=== PATIENT | male | born 1965 | race Caucasian/White ===

== ENCOUNTER 2023-02-01 02:46 | Emergency (ER) | payer MEDICAID, SELFPAY ==
[2023-02-01 02:48] VITALS: BP 144/98; PULSE 81; RESP 16; TEMP 35.8; O2SAT 100; BMI 22.1
--- NOTE | 2023-02-01 02:59 | RAD_ITS ---
INDICATION: injury EXAMINATION/TECHNIQUE: X-RAY - LEFT XR Hand Min 3 Views COMPARISON: None. FINDINGS: SOFT TISSUES: Unremarkable. BONES/JOINTS: No acute fracture or dislocation. Chronic/healed fracture of the fifth metacarpal. Mild degenerative changes. No erosive changes. RAD/Hand Min 3 Views IMPRESSION: No acute fracture or dislocation. Electronically Signed: Aric Randall DO at 3:23 EDT ,
--- NOTE | 2023-02-01 03:01 | RAD_ITS ---
INDICATION: injury EXAMINATION/TECHNIQUE: X-RAY - RIGHT XR Wrist Min 3 Views COMPARISON: None. FINDINGS: SOFT TISSUES: Soft tissue swelling of the wrist. BONES/JOINTS: Comminuted minimally displaced fracture of the distal radius extending to the articular surface of the radiocarpal joint. No dislocation. No significant degenerative changes. No erosive changes. RAD/Wrist min 3 Views IMPRESSION: Comminuted intra-articular fracture of the distal radius. Electronically Signed: Aric Randall DO at 3:21 EDT ,
[2023-02-01] MEDS: oxyCODONE 5 MG Tablet PO (03:19)
--- NOTE | 2023-02-01 03:55 | EX.ED.UPPERE ---
HPI History of Present Illness Chief Complaint: Upper Extremity Injury Informant: patient Narrative Narrative: [id number] male presents [facility] [employer]. No head injuries. Right wrist pain left hand pain. History of nonsurgical fracture as a child of the right wrist. No anticoagulants. No paresthesias. PFSH PFSH Home Medications carvedilol 3.125 mg tablet 3.125 mg PO BID 02/01/23 [History Last Taken Unknown] lisinopril 5 mg tablet 5 mg PO DAILY 02/01/23 [History Last Taken Unknown] oxycodone-acetaminophen 5 mg-325 mg tablet (Percocet) 1 tab PO Q6H pain 3 days #12 tabs 02/01/23 [Rx Last Taken Unknown] Allergy/AdvReac Type Severity Reaction Status Date / Time No Known Allergies Allergy Verified 02/01/23 02:47 Social History Smoking Status: Current every day smoker tobacco type: cigarettes ROS ROS ED Constitutional Constitutional ED: Denies chills, fever(s) or sweats Eyes Eyes: Denies change in vision ENT ENT ED: Denies dysphagia or sore throat Cardiovascular Cardiovascular: Denies chest pain, leg edema, palpitations or racing heartbeat Respiratory/Chest Respiratory/Chest: Denies cough, dyspnea or dyspnea on exertion Gastrointestinal Gastrointestinal: Denies abdominal pain, diarrhea, nausea or vomiting Genitourinary Genitourinary ED: Denies dysuria, hematuria or urinary frequency Musculoskeletal Musculoskeletal: Reports extremity pain; Denies back pain or neck pain Integumentary Denies rash or wounds Neurologic Neurologic: Denies headache(s), paresthesias or weakness EXAM Physical Exam Const Vital Signs: 02/01/23 02:48 Temperature 96.4 F L Temperature Source Temporal Pulse Rate 81 Respiratory Rate 16 Blood Pressure 144/98 H Blood Pressure Mean 113 Pulse Ox 100 Oxygen Delivery Method Room Air Positive well nourished and well developed Constitutional Narrative: GCS 15 General Appearance ED: well developed and NAD HEENT Reports moist mucous membranes normocephalic and atraumatic Eyes PERRL, EOMs intact bilaterally and conjunctivae normal General Eye ED: Yes normal appearance of both eyes Neck no lymphadenopathy and supple General: Negative for tenderness Chest Wall Chest: Negative for tenderness Resp normal respiratory effort and normal air movement Effort and Inspection: symmetric chest movement; Negative for respiratory distress Cardio regular rate, regular rhythm and no murmurs Peripheral Pulses: pulses 2+ throughout GI normal to inspection, nondistended, normoactive bowel sounds and non-tender Palpation: Negative for guarding or rebound tenderness present Back/Spine no CVA tenderness and no thoracic nor lumbar tenderness Extremity General Extremety ED: Yes tenderness; Negative for edema General Extremity: Negative for edema Neuro oriented x3 and no sensory deficits noted Sensorium / Orientation: awake and alert Skin no rashes or lesions noted and no wounds MDM MDM MDM Narrative Medical decision making narrative: Interventions / MDM: Differential diagnosis: Wrist fracture, finger fracture, wrist contusion, cerumen impaction Diagnosis considered but do not suspect: N/A My EKG interpretation: N/A Imaging independently reviewed and interpreted by myself: Right wrist 3 views: Impaction comminuted fracture distal radius intra-articular involvement. Left hand: Ring finger notes concerns for avulsion fracture base of the second phalanx. External documents reviewed: N/A Test considered but not ordered:N/A ED course: Mechanical fall no head injuries. X-rays ordered bedside noting confirmed fractures right wrist left ring finger. This was splinted. Neurovascularly intact post splinting. Patient reports decreased hearing with cerumen buildup bilaterally. He had impacted cerumen bilaterally removed with curettes with improved hearing. Patient is given oxycodone in the ED prescription with meds to bed for oxycodone. Orthopedic follow-up. All questions were answered. Splinting: Nylon sleeve with Kerlix dressing. AP plaster splint was placed secured with Felice wrap in a neutral position. Patient tolerated procedure well. Neurovascular intact post splinting. Re-evaluation: stable Disposition discussed with patient/family/significant other: Patient Case discussed with consulting clinician: N/A Radiography Diagnostic Testing: Clinical Impression(s) from Imaging Studies Hand X-Ray 02/01/23 02:59 IMPRESSION: No acute fracture or dislocation. Electronically Signed: Aric Randall DO at 3:23 EDT , Wrist X-Ray 02/01/23 03:01 IMPRESSION: Comminuted intra-articular fracture of the distal radius. Electronically Signed: Aric RandallDO at 3:21 EDT , Discharge Plan Triage Chief Complaint: Upper Extremity Injury ED Provider: Romulo Mendez Dx/Rx/DC Orders Clinical Impression: Closed fracture of right wrist, Finger fracture, left, Bilateral impacted cerumen Instructions: Impacted Earwax, ED Fracture, Finger, Closed, ED Fracture, Wrist, General Prescriptions: New oxycodone-acetaminophen [Percocet] 5-325 mg tablet 1 tab PO Q6H 3 Days Qty: 12 0RF No Action carvedilol 3.125 mg Tablet 3.125 mg PO BID Rx Instructions: must administer with a meal/food lisinopril 5 mg Tablet 5 mg PO DAILY Primary Care Provider: Care Physician,No Primary Referrals: Tito Finney DO [Med Staff - Active Staff] - 3-5 Days Care Physician,No Primary [Primary Care Provider] - Activity Restrictions/Additional Instructions: Impacted right distal radius fracture intra-articular, left ring finger fracture. Maintain splints. Follow-up with orthopedics. Disposition Disposition: Home, Self Care Discharge Date/Time: 02/01/23 05:07
[2023-02-01 05:07] VITALS: BP 140/90; PULSE 87; RESP 16
== END 2023-02-01 05:07 | disposition home or self-care (01) ==
PROVIDERS: Emergency Provider Emergency Medicine; Visit Provider Emergency Medicine
DX: S52.571A Other intraarticular fracture of lower end of right radius, initial encounter for closed fracture (principal); F17.210 Nicotine dependence, cigarettes, uncomplicated; S62.307A Unspecified fracture of fifth metacarpal bone, left hand, initial encounter for closed fracture; H61.23 Impacted cerumen, bilateral; W06.XXXA Fall from bed, initial encounter
CPT/HCPCS: 73110; 73130; 99284

== ENCOUNTER 2023-10-09 18:25 | Emergency (ER) | payer MEDICAID, SELFPAY ==
[2023-10-09 18:27] VITALS: BP 139/89; PULSE 78; RESP 18; TEMP 36.4; O2SAT 100; BMI 20.4
--- NOTE | 2023-10-09 18:30 | EDS_ITS ---
HPI History of Present Illness Chief Complaint: Upper Extremity Injury Informant: patient and EMS Narrative Narrative: 58-year-old male states he went to the store to buy some dinner he slipped on ice and fell to his right shoulder which he injured. He called EMS to be brought to the hospital. He denies any other injury. He is right-hand dominant. He denies any numbness or tingling. [facility] Medical History (Updated 10/09/23 @ 18:[address] Isrrael Cali MD) History of pneumothorax HTN (hypertension) Home Medications carvedilol 3.125 mg tablet 3.125 mg PO BID 02/01/23 [History Last Taken Unknown] lisinopril 5 mg tablet 5 mg PO DAILY 02/01/23 [History Last Taken Unknown] hydrocodone-acetaminophen 5-325mg 5mg-325mg 1 tab PO Q6H PRN PRN Pain 3 days #12 TABLETS 10/09/23 [Rx Last Taken Unknown] Allergy/AdvReac Type Severity Reaction Status Date / Time No Known Allergies Allergy Verified 10/09/23 18:26 Social History Smoking Status: Current every day smoker tobacco type: cigarettes alcohol intake: current alcohol intake frequency: a few times a month ROS ROS ED Constitutional Constitutional ED: Denies chills or fever(s) Musculoskeletal Musculoskeletal: Reports extremity pain; Denies neck pain Integumentary Denies Abrasions, rash or wounds Neurologic Neurologic: Denies paresthesias or weakness EXAM Physical Exam Const Vital Signs: 10/09/23 18:27 Temperature 97.6 F L Temperature Source Temporal Pulse Rate 78 Respiratory Rate 18 Blood Pressure 139/89 H Blood Pressure Mean 105 Pulse Ox 100 Oxygen Delivery Method Room Air Positive well nourished and well developed General Appearance ED: well developed and NAD Neck full ROM and supple Back/Spine normal ROM and normal to inspection Extremity Extremity Narrative: Limited range of motion right shoulder. There may be some swelling anteriorly where he has tenderness, at the bicipital groove/proximal humerus anteriorly, but there are no other areas of tenderness including the clavicle, acromioclavicular joint, acromion, and there are no deformities. 2+/4 radial pulse. No distal humeral or elbow/forearm/wrist tenderness. Other 3 extremities move without difficulty. Neuro oriented x3, no focal motor deficits and no sensory deficits noted Sensorium / Orientation: alert Psych mental status grossly normal and thought process normal Psych Narrative: Smells of alcohol. Skin no wounds Rashes: no rashes MDM MDM MDM Narrative Medical decision making narrative: 2 view x-ray series of the right shoulder my interpretation shows a comminuted proximal humerus fracture involving the metaphysis and the proximal shaft, scapular Y shows that the humeral head appears to be in place against the glenoid and there is no dislocation. Patient is neurovascular intact distally. Discussed with Dr. Mendiola who agrees with place him in a sling and swath with pain medication for now and will see as outpatient. Patient referred accordingly. Discharge Plan Triage Chief Complaint: Upper Extremity Injury ED Provider: Isrrael Cali Dx/Rx/DC Orders Clinical Impression: Closed fracture of proximal end of right humerus Instructions: Understanding a Humerus Fracture, ED Fracture, Shoulder, ED Sling and Swathe Prescriptions: New hydrocodone-acetaminophen [hydrocodone-acetaminophen] 5-325 mg tablet 1 tab PO Q6H PRN PRN (Reason: Pain) 3 Days Qty: 12 0RF No Action carvedilol 3.125 mg Tablet 3.125 mg PO BID Rx Instructions: must administer with a meal/food lisinopril 5 mg Tablet 5 mg PO DAILY Primary Care Provider: Care Physician,No Primary Referrals: Sony Mendiola MD [Med Staff - Active Staff] - As soon as possible Care Physician,No Primary [Primary Care Provider] - Disposition Disposition: Home, Self Care
--- NOTE | 2023-10-09 18:45 | RAD_ITS ---
STUDY: X-RAY - RIGHT SHOULDER REASON FOR EXAM: Male, 58 years old. INJURY TECHNIQUE: 2 view(s) of the shoulder. COMPARISON: None. FINDINGS: Normal glenohumeral articulation. Normal acromioclavicular joint. Normal acromion. Acute anteriorly displaced spiral fracture of the humeral neck and proximal shaft of the humerus. There is suggestive of a large lytic lesion with possible chondroid calcifications worrisome for a pathologic fracture possibly from an enchondroma or chondrosarcoma. Correlation with bone scan would be useful to evaluate for other bone lesions. The soft tissue structures are unremarkable. Multiple healed right rib fractures. Normal visualized pulmonary apex. RAD/Shoulder min 2 Views IMPRESSION: Suspect acute pathologic fracture of the neck and proximal shaft of the humerus possibly from enchondroma, chondrosarcoma, or metastatic disease. Correlation with bone scan and MRI may be useful. Electronically Signed: Tom Escalera MD at 19:23 EST ,
--- OUTSIDE RECORDS SUMMARY | 2023-10-09 19:00 | XMS RPT_ITS | CCD ---
Author Name Unknown Address [address] [place] [address] Organization [facility] Care Team Providers Care Cascade Operator Name Role Phone EBONY BARLOW Unavailable Unavailable AMAIRANI, ANTONIO Unavailable Unavailable Amairani, Antonio Unavailable Unavailable AmairaniKeeley annmay B Unavailable Unavailable AmairaniKeeley annmay B Unavailable Unavailable Unavailable CLIFF HOWELL Primary Care Unavailable PROVIDER, UNKNOWN Admitting Unavailable CADEN MOSCOSO Attending Unavailable Amairani Antonio Bhaveshkumar Referring Unava ilable Amairani Antonio Bhaveshkumar Attending Unava ilable Amairani, Antonio Bhaveshkumar Primary Care Unava ilable Amairani, Antonio Bhaveshkumar Primary Care Unava ilable Amairani, Antonio Bhaveshkumar Referring Unava ilable Amairani, Antonio Bhaveshkumar Attending Unava ilable Antonio Bales MD Primary Care Provider [phone] Antonio Bales MD Unavailable [phone] Antonio Bales MD Unavailable Antonio Bales MD Primary Care Provider ANTONIO BALES Attending Unavailable AMAIRANIKEELEY ANNMAY B Primary Care Unavailable KERI DUMONT Attending Unavailable ANTONIO BALES B Primary Care Unavailable Allergies Allergy Classification Reported Allergen(s) Allergy Type Date of Onset Reaction(s) Facility (4 sources) Aspirin; Translations: [Aspirin TABS] Drug Allergy [facility] Work Phone: (1 source) Aspirin; Translations: [ASPIRIN] Drug Allergy 02-26-2003 [facility] Medications Current Medications Medication Drug Class(es) Dates Sig (Normalized) Sig (Original) [id number] 200 actuat albuterol 0.09 mg/actuat metered dose inhaler (5 sources) beta2-Adrenergic Agonist Start: 04-27-2023 take 2 puff(s) by inhalation every six hours for wheezing albuterol 90 mcg/actuation inhaler Indications: Hypertension, unspecified type Inhale 2 puffs every 6 hours if needed for wheezing. 18 g 1 04/27/2023 Active Completed/Discontinued Medications Medication Drug Class(es) Dates Sig (Normalized) Sig (Original) aspirin 81 mg delayed release oral tablet (4 sources) Platelet Aggregation Inhibitor, Nonsteroidal Anti-inflammatory Drug Start: 12-27-2017 Aspirin 81 MG Oral Tablet Delayed Release Quantity: 0 Refills: 0 Ordered: 27-Dec-2017 DO Start : 27-Dec-2017 Active Problems Active Problems Problem Classification Problem Date Documented Da te Episodic/Chronic Alcohol-related disorders (7 sources) Alcoholism; Translations: [Other and unspecified alcohol dependence, unspecified] Onset: 09-17-2023 09-17-2023 Chronic Allergic reactions (4 sources) Eczema; Translations: [Contact dermatitis and other eczema, unspecified cause] Episodic Chronic obstructive pulmonary disease and bronchiectasis (4 sources) Mild chronic obstructive pulmonary disease; Translations: [Chronic airway obstruction, not elsewhere classified] Chronic Deficiency and other anemia (4 sources) Anemia due to blood loss; Translations: [Iron deficiency anemia secondary to blood loss (chronic)] Chronic Essential hypertension (10 sources) Essential hypertension; Translations: [Unspecified essential hypertension] Onset: 04-27-2023 04-27-2023 Chronic Fluid and electrolyte disorders (7 sources) Hyponatremia; Translations: [Hyposmolality and/or hyponatremia] Onset: 09-17-2023 09-17-2023 Episodic Hypertension with complications and secondary hypertension (2 sources) Secondary hypertension, unspecified; Translations: [Secondary hypertension, unspecified] Onset: 04-27-2023 Chronic Immunizations and screening for infectious disease (6 sources) Patient encounter status; Translations: [Other specified vaccination] Episodic Mood disorders (4 sources) Depressive disorder; Translations: [Depressive disorder, not elsewhere classified] Chronic Nutritional deficiencies (4 sources) Vitamin D deficiency; Translations: [Unspecified vitamin D deficiency] Chronic Other ear and sense organ disorders (4 sources) Sensation of blocked ears; Translations: [Other disorders of ear] Episodic Other ear and sense organ disorders (1 source) Impacted cerumen; Translations: [Impacted cerumen, unspecified ear] 09-17-2023 Episodic Other ear and sense organ disorders (2 sources) Impacted cerumen, unspecified ear; Translations: [Impacted cerumen, unspecified ear] Onset: 09-17-2023 Episodic Other fractures (4 sources) Closed fracture of multiple ribs; Translations: [Late effect of fracture of spine and trunk without mention of spinal cord lesion] Episodic Other injuries and conditions due to external causes (4 sources) H/O: vertebral fracture; Translations: [Personal history of traumatic fracture] Episodic Other lower respiratory disease (8 sources) History of chronic obstructive airway disease; Translations: [Personal history of other diseases of respiratory system] Episodic Other lower respiratory disease (4 sources) H/O: pneumonia; Translations: [Personal history of pneumonia (recurrent)] Episodic Other lower respiratory disease (1 source) Disorder of lung; Translations: [History of Collapse of lung] Episodic Other male genital disorders (1 source) Impotence; Translations: [Erectile dysfunction] Chronic Other male genital disorders (3 sources) Male erectile dysfunction, unspecified; Translations: [Erectile dysfunction] Chronic Pleurisy; pneumothorax; pulmonary collapse (7 sources) Right pneumothorax; Translations: [Other pneumothorax] Episodic Residual codes; unclassified (4 sources) H/O: Disorder; Translations: [Personal history of other diseases of digestive system] Episodic Skin and subcutaneous tissue infections (4 sources) Abscess; Translations: [Cellulitis and abscess of unspecified sites] Episodic Substance-related disorders (4 sources) Nicotine dependence; Translations: [Tobacco use disorder] Chronic Superficial injury; contusion (4 sources) Contusion of rib; Translations: [Contusion of chest wall] Episodic Past or Other Problems Problem Classification Problem Date Documented Da te Episodic/Chronic Unclassified (2 sources) Patient encounter status; Translations: [Encounter for immunization] NEGATED: Highlighted row has not occurred!Residual codes; unclassified (7 sources) Disease Episodic Results Test Name Value Interpretation Reference Range Facil ity Vital Signs Date Time Vital Sign Value Performing Clinician Facility 09-17-2023 15:00-0500 Body height 182.9 cm Keri Dumont MD Work Phone: [phone] [place] [address] 09-17-2023 15:00-0500 Body mass index (BMI) [Ratio] 19.53 kg/m2 Keri Dumont MD Work Phone: [phone])[phone] [place] [address] 09-17-2023 15:00-0500 Body weight 65.32 kg Keri Dumont MD Work Phone: [phone])[phone] [place] [address] 09-17-2023 15:00-0500 Diastolic blood pressure 84 mm[Hg] Keri Dumont MD Work Phone: [phone] [place] [address] 09-17-2023 15:00-0500 Heart rate 97 /min Keri Dumont MD Work Phone: [phone] [place] [address] 09-17-2023 15:00-0500 SaO2% (BldA) [Mass fraction] 98 % Keri Dumont MD Work Phone: [phone])002-186898 [place] [address] 09-17-2023 15:00-0500 Systolic blood pressure 157 mm[Hg] Keri Dumont MD Work Phone: 9([phone] [place] [address] 04-27-2023 10:31-0400 Body height 182.9 cm Antonio Bales MD Work Phone: [phone] [place] [address] 04-27-2023 10:31-0400 Body mass index (BMI) [Ratio] 20.89 kg/m2 Antonio Bales MD Work Phone: 1([phone] [place] [address] 04-27-2023 10:31-0400 Body weight 69.85 kg Antonio Bales MD Work Phone: [phone] [place] [address] 04-27-2023 10:31-0400 Diastolic blood pressure 80 mm[Hg] Antonio Bales MD Work Phone: [facility] 04-27-2023 10:31-0400 Heart rate 109 /min Antonio Bales MD Work Phone: [facility] 04-27-2023 10:31-0400 SaO2% (BldA) [Mass fraction] 93 % Antonio Bales MD Work Phone: [facility] 04-27-2023 10:31-0400 Systolic blood pressure 120 mm[Hg] Antonio Bales MD Work Phone: [facility] 10-26-2022 10:18-0500 Body height 182.88 cm Antonio B Amairani Work Phone: [facility] Work Phone: 10-26-2022 10:18-0500 Body mass index (BMI) [Ratio] 21.97 kg/m2 Antonio B Amairani Work Phone: [facility] Work Phone: 10-26-2022 10:18-0500 Body surface area Derived from formula 1.95 m2 Antonio B Amairani Work Phone: [facility] Work Phone: 10-26-2022 10:18-0500 Body temperature 97.5 [degF] Antonio B Amairani Work Phone: [facility] Work Phone: 10-26-2022 10:18-0500 Body weight 73.48 kg Antonio B Amairani Work Phone: [facility] Work Phone: 10-26-2022 10:18-0500 Diastolic blood pressure 80 mm[Hg] Antonio B Amairani Work Phone: [facility] Work Phone: 10-26-2022 10:18-0500 Heart rate 81 /min Antonio B Amairani Work Phone: [facility] Work Phone: 10-26-2022 10:18-0500 SaO2% (BldA) [Mass fraction] 98 % Antonio B Amairani Work Phone: [facility] Work Phone: 10-26-2022 10:18-0500 Systolic blood pressure 137 mm[Hg] Antonio B Amairani Work Phone: [facility] Work Phone: 05-29-2020 15:09-0400 BMI (Body Mass Index) 21.84 kg/m2 Antonio Amairani [facility] Work Phone: 05-29-2020 15:09-0400 Body Temperature 98.4 [degF] Antonio Amairani [facility] Work Phone: 05-29-2020 15:09-0400 Body weight 73.03 kg Antonio Amairani [facility] Work Phone: 05-29-2020 15:09-0400 BP Diastolic 80 mm[Hg] Antonio Amairani [facility] Work Phone: 05-29-2020 15:09-0400 BP Systolic 136 mm[Hg] Antonio Amairani [facility] Work Phone: 05-29-2020 15:09-0400 BSA (Body Surface Area) 1.94 m2 Antonio Amairani [facility] Work Phone: 05-29-2020 15:09-0400 Height 182.88 cm Antonio Amairani [facility] Work Phone: 05-29-2020 15:09-0400 Pulse (Heart Rate) 90 /min Antonio Amairani [facility] Work Phone: 05-29-2020 15:09-0400 Pulse Oximetry 97 % Antonio Bales [facility] Work Phone: Encounters Encounter Date Encounter Type Care Provider Facility Start: 09-17-2023 End: 09-18-2023 ambulatory KERI [facility] Ambulatory Start: 09-17-2023 End: 09-17-2023 Office outpatient visit 15 minutes Keri Dumont MD Work Phone: [facility] Procedures Date Procedure Procedure Detail Performing Clinician Start: 10-26-2022 Lipid 1996 panel - S stevan or Plasma Antonio Balse MD Work Phone: Start: 02-23-2020 Blood count complete automated [facility] Start: 02-23-2020 Blood gases any combination ph pco2 po2 co2 hco3 [facility] Start: 02-23-2020 [facility] Start: 02-23-2020 Ecg routine ecg w/le ast 12 lds trcg only w/o i&r [facility] Start: 02-23-2020 INSERT [facility]IPHERAL [facility]ESS [facility] Start: 02-23-2020 Radiologic exam ches t single view CLIFF HOWELL History of Lung Surgery Keeley Bales History of Oral Surg jonnathan Tooth Extraction Antonio Bales Plan of Treatment Date Care Activity Detail Author Start: 02-17-2031 DTaP/Tdap/Td Vaccines (3 - Td or Tdap) DTaP/Tdap/Td Vaccines (3 - Td or Tdap) [facility] Start: 10-26-2027 Lipid panel Lipid Panel [facility] Start: 10-28-2023 End: 10-28-2023 Patient encounter procedure [facility] Start: 06-24-2023 Screening for malignant neoplasm of colon [facility] Start: 05-28-2023 Influenza vaccination Influenza Vaccine (#1) [facility] Start: 04-27-2023 FUV, Provider: Antonio Bales, Status: Pen, Time: 10:00 AM FUV, Provider: Antonio Bales, Status: Pen, Time: 10:00 AM [facility] Work Phone: Start: 12-21-2022 COVID-19 Vaccine (4 - Booster for Pfizer series) COVID-19 Vaccine (4 - Booster for Pfizer series) [facility] Start: 12-21-2022 COVID-19 Vaccine (4 - Pfizer series) COVID-19 Vaccine (4 - Pfizer series) [facility] Start: 09-17-2021 FUV, Provider: Antonio Bales, Status: Pen, Time: 2:30 PM FUV, Provider: Antonio Bales, Status: Pen, Time: 2:30 PM [facility] Work Phone: Start: 05-29-2021 Pneumococcal Vaccine: Pediatrics (0 to 5 Years) and At-Risk Patients (6 to 64 Years) (2 - PCV) Pneumococcal Vaccine: Pediatrics (0 to 5 Years) and At-Risk Patients (6 to 64 Years) (2 - PCV) [facility] Start: 2017 Screening for malignant neoplasm of lung Lung Cancer Screening [facility] Start: 2017 Zoster Vaccines (1 of 2) Zoster Vaccines (1 of 2) [facility] Start: 1985 Hepatitis C screening Hepatitis C Screening [facility] Start: 1968 MMR Vaccines (1 of 1 - Standard series) MMR Vaccines (1 of 1 - Standard series) [facility] Start: 1967 Hepatitis B Vaccines (1 of 3 - 3-dose series) Hepatitis B Vaccines (1 of 3 - 3-dose series) [facility] Start: 1967 HIV screening HIV Screening [facility] Start: 1967 Screening for malignant neoplasm of colon [facility] Start: 1967 Yearly Adult Physical Yearly Adult Physical [facility] Immunizations Immunization Date Immunization Notes Care Provider Fa grazyna 10-26-2022 Seasonal, quadrivale nt, recombinant, injectable influenza vaccine, preservative free; Translations: [Flublok Quadrivalent 0.5 ML Intramuscular Solution Prefilled Syringe] Antonio Bales Work Phone: [facility] Work Phone: Payers Date Payer Category Payer Private Health Insurance [facility] [id number] 2018-Present [address] [place] [address] [id number] 2018 Private Health Insurance [id number] 2016 Medicaid [id number] 1967 Unknown [id number] 1967 Unknown [id number] 1967 Unknown [id number] 1967 Unknown [id number] 1967 Unknown [id number] Unknown [facility] Social History Date Type Detail Facility Start: 04-27-2023 End: 09-17-2023 Former smoker Former smoker [facility] Work Phone: Start: 04-27-2023 Tobacco smoking status NHIS Smokes tobacco daily [facility] Work Phone: History of tobacco use Cigarette Smoker [facility] Work Phone: Start: 04-27-2023 Tobacco use and exposure Smokeless tobacco non-user [facility] Work Phone: Start: 04-27-2023 End: 09-17-2023 Alcohol intake Current drinker of alcohol (finding) [facility] Work Phone: Start: 1965 Sex Assigned At Not on file [facility] Work Phone: Start: 04-27-2023 Gender identity Not on file [facility] Work Phone: Start: 04-17-2023 End: 09-17-2023 Exposure to SARS-CoV-2 (event) Not sure [facility] How often to you hav e a drink containing alcohol? 4 or more times a week [facility] Work Phone: How many standard drinks containing alcohol do you have on a typical day? 3 or [address] [facility] Work Phone: How often do you hav e 6 or more drinks on 1 occasion? Monthly [facility] Work Phone: NEGATED: Highlighted row - - [facility] Work Phone: Functional Status Date Assessment Result Facility NEGATED: Highlighted row Functional performance Functional status health issues are not documented Disease [facility] Work Phone: Mental Status Date Assessment Result Facility NEGATED: Highlighted row Cognitive function [Interpretation] Cognitive status health issues are not documented Disease [facility] Work Phone: History of Present illness Narrative 09-17-2023 Keri Dumont MD - 09/17/2023 3:00 PM EST Note Date & Type Note Facility 09-17-2023 History of Present illness Narrative Subjective Patient ID: Jamison Denis is a 58 y.o. male who presents for swollen toe. 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 History limitation: None. HPI Wants his ear flushed Has some changes in his toe and wants it looked at No Known Allergies Current Outpatient Medications Medication Sig Dispense Refill albuterol 90 mcg/actuation inhaler Inhale 2 puffs every 6 hours if needed for wheezing. 18 g 1 carvedilol (Coreg) 6.25 mg tablet Take 1 tablet (6.25 mg) by mouth 2 times a day. 180 tablet 2 lisinopriL-hydrochlorothiazide 10-12.5 mg tablet Take 1 tablet by mouth once daily. 90 tablet 2 No current facility-administered medications for this visit. Objective Visit Vitals BP 157/84 Pulse 97 Ht 1.829 m (6') Wt 65.3 kg (144 lb) SpO2 98% BMI 19.53 kg/m Smoking Status Every Day BSA 1.82 m Physical Exam Vital signs as per nursing/MA documentation General appearance: Alert and in no acute distress HEENT: Normal Inspection Neck - Normal Inspection Respiratory : No respiratory distress. Lungs are clear Cardiovascular: heart rate normal. No gallop Back - normal inspection Skin inspection:Warm Musculoskeletal : No deformities Neuro : Limited exam. Baseline Review of Systems Comprehensive review of systems as allowed by patient condition and nursing input is negative Results including lab work, imaging reports were reviewed and wherever possible, independently verified No family history on file. Social History Socioeconomic History Marital status: Unknown Spouse name: None Number of children: None Years of education: None Highest education level: None Occupational History None Tobacco Use Smoking status: Every Day Packs/day: 1.00 Years: 25.00 Additional pack years: 0.00 Total pack years: 25.00 Types: Cigarettes Smokeless tobacco: Never Substance and Sexual Activity Alcohol use: Yes Alcohol/week: 24.0 standard drinks of alcohol Types: 24 Cans of beer per week Drug use: Never Sexual activity: None Other Topics Concern None Social History Narrative None Social Determinants of Health Financial Resource Strain: Not on file Food Insecurity: Not on file Transportation Needs: Not on file Physical Activity: Not on file Stress: Not on file Social Connections: Not on file Intimate Partner Violence: Not on file Housing Stability: Not on file Past Medical History: Diagnosis Date Contusion of unspecified front wall of thorax, initial encounter Bruised rib Cutaneous abscess, unspecified Abscess Other pulmonary collapse Collapse of lung Personal history of (healed) traumatic fracture History of fracture of vertebra Personal history of other diseases of the digestive system History of dental abscess Personal history of other diseases of the respiratory system History of chronic obstructive lung disease Personal history of other diseases of the respiratory system History of pulmonary emphysema Personal history of pneumonia (recurrent) History of pneumonia Past Surgical History: Procedure Laterality Date LUNG SURGERY 01/01/2016 Lung Surgery MOUTH SURGERY 01/01/2016 Oral Surgery Tooth Extraction Charting was completed using voice recognition technology and may include unintended errors. documented in this encounter [facility] Work Phone: History of Present illness Narrative 04-27-2023 Antonio Bales MD - 04/27/2023 10:00 AM EDT Note Date & Type Note Facility 04-27-2023 History of Present illness Narrative Subjective Patient ID: Jamison Denis is a 57 y.o. male who presents for Annual Exam. Assessment/Plan Problem List Items Addressed This Visit None Visit Diagnoses Secondary hypertension Meds refilled follow-up in 6 months Patient agrees Advised to cut down on smoking and alcohol Up-to-date with Cologuard Received Pneumovax Lab work today patient is fasting Continue current medication Discussed in detail about cutting down on alcohol and smoking On and off smoking but it is rare now Follow-up in 6 was come back early with any new sign and symptoms. Patient understands and agreement plan. HPI 57-year-old male No new signs and symptoms Previous lab work reviewed no lab work today Meds refilled Still smoking and drinking advised to cut down Chronic alcoholism currently patient is significant cut down on drinking Elevated LFT Hyponatremia - secondary to beer potomania Former smoker History of right tension pneumothorax status post VATS Anemia Up-to-date with Cologuard No Known Allergies Current Outpatient Medications Medication Sig Dispense Refill albuterol 90 mcg/actuation inhaler Inhale. carvedilol (Coreg) 6.25 mg tablet Take 1 tablet (6.25 mg) by mouth 2 times a day. 60 tablet 0 lisinopriL-hydrochlorothiazide 10-12.5 mg tablet Take 1 tablet by mouth once daily. 30 tablet 0 No current facility-administered medications for this visit. Objective Visit Vitals BP 120/80 (BP Location: Left arm, Patient Position: Sitting) Pulse 109 Ht 1.829 m (6') Wt 69.9 kg (154 lb) SpO2 93% BMI 20.89 kg/m Smoking Status Every Day BSA 1.88 m Physical Exam Constitutional: General: He is not in acute distress. Appearance: Normal appearance. HENT: Head: Normocephalic and atraumatic. Nose: Nose normal. Eyes: Extraocular Movements: Extraocular movements intact. Conjunctiva/sclera: Conjunctivae normal. Cardiovascular: Rate and Rhythm: Normal rate and regular rhythm. Pulmonary: Effort: Pulmonary effort is normal. Breath sounds: Normal breath sounds. Skin: General: Skin is warm. Neurological: Mental Status: He is alert and oriented to person, place, and time. Psychiatric: Mood and Affect: Mood normal. Behavior: Behavior normal. Immunization History Administered Date(s) Administered Pfizer Purple Cap SARS-CoV-2 12/20/2020, 01/10/2021, 09/11/2021 Review of Systems No visits with results within 4 Month(s) from this visit. Latest known visit with results is: [facility] Encounter on 10/26/2022 Component Date Value Ref Range Status WBC 10/26/2022 8.0 4.4 - 11.3 x10E9/L Final nRBC 10/26/2022 0.0 0.0 - 0.0 /100 WBC Final RBC 10/26/2022 4.45 (L) 4.50 - 5.90 x10E12/L Final Hemoglobin 10/26/2022 14.5 13.5 - 17.5 g/dL Final Hematocrit 10/26/2022 43.0 41.0 - 52.0 % Final MCV 10/26/2022 97 80 - 100 fL Final MCHC 10/26/2022 33.7 32.0 - 36.0 g/dL Final Platelets 10/26/2022 407 150 - 450 x10E9/L Final RDW 10/26/2022 13.1 11.5 - 14.5 % Final Color, Urine 10/26/2022 YELLOW STRAW,YELLOW Final Appearance, Urine 10/26/2022 CLEAR CLEAR Final Specific [place], Urine 10/26/2022 1.015 1.005 - 1.035 Final pH, Urine 10/26/2022 7.0 5.0 - 8.0 Final Protein, Urine 10/26/2022 NEGATIVE NEGATIVE mg/dL Final Glucose, Urine 10/26/2022 NEGATIVE NEGATIVE mg/dL Final Blood, Urine 10/26/2022 NEGATIVE NEGATIVE Final Ketones, Urine 10/26/2022 NEGATIVE NEGATIVE mg/dL Final Bilirubin, Urine 10/26/2022 NEGATIVE NEGATIVE Final Urobilinogen, Urine 10/26/2022 <2.0 0.0 - 1.9 mg/dL Final Nitrite, Urine 10/26/2022 NEGATIVE NEGATIVE Final Leukocyte Esterase, Urine 10/26/2022 NEGATIVE NEGATIVE Final TSH 10/26/2022 1.38 0.44 - 3.98 mIU/L Final Hemoglobin A1C 10/26/2022 5.6 % Final Estimated Average Glucose 10/26/2022 114 MG/DL Final Cholesterol 10/26/2022 135 0 - 199 mg/dL Final HDL 10/26/2022 33.9 (A) mg/dL Final Cholesterol/HDL Ratio 10/26/2022 4.0 Final LDL 10/26/2022 88 0 - 99 mg/dL Final VLDL 10/26/2022 14 0 - 40 mg/dL Final Triglycerides 10/26/2022 68 0 - 149 mg/dL Final Glucose 10/26/2022 124 (H) 74 - 99 mg/dL Final Sodium 10/26/2022 135 (L) 136 - 145 mmol/L Final Potassium 10/26/2022 4.1 3.5 - 5.3 mmol/L Final Chloride 10/26/2022 93 (L) 98 - 107 mmol/L Final Bicarbonate 10/26/2022 35 (H) 21 - 32 mmol/L Final Anion Gap 10/26/2022 11 10 - 20 mmol/L Final Urea Nitrogen 10/26/2022 10 6 - 23 mg/dL Final Creatinine 10/26/2022 0.92 0.50 - 1.30 mg/dL Final GFR MALE 10/26/2022 >90 >90 mL/min/1.73m2 Final Calcium 10/26/2022 10.2 8.6 - 10.6 mg/dL Final Albumin 10/26/2022 4.7 3.4 - 5.0 g/dL Final Alkaline Phosphatase 10/26/2022 50 33 - 120 U/L Final Total Protein 10/26/2022 7.4 6.4 - 8.2 g/dL Final AST 10/26/2022 17 9 - 39 U/L Final Total Bilirubin 10/26/2022 0.8 0.0 - 1.2 mg/dL Final ALT (SGPT) 10/26/2022 15 10 - 52 U/L Final Prostate Specific Antigen,Screen 10/26/2022 0.17 0.00 - 4.00 ng/mL Final Radiology: Reviewed imaging in powerchart. No results found. No family history on file. Social History Socioeconomic History Marital status: Unknown Spouse name: None Number of children: None Years of education: None Highest education level: None Occupational History None Tobacco Use Smoking status: Every Day Packs/day: 1.00 Years: 25.00 Total pack years: 25.00 Types: Cigarettes Smokeless tobacco: Never Substance and Sexual Activity Alcohol use: Yes Alcohol/week: 24.0 standard drinks of alcohol Types: 24 Cans of beer per week Drug use: Never Sexual activity: None Other Topics Concern None Social History Narrative None Social Determinants of Health Financial Resource Strain: Not on file Food Insecurity: Not on file Transportation Needs: Not on file Physical Activity: Not on file Stress: Not on file Social Connections: Not on file Intimate Partner Violence: Not on file Housing Stability: Not on file Past Medical History: Diagnosis Date Contusion of unspecified front wall of thorax, initial encounter Bruised rib Cutaneous abscess, unspecified Abscess Other pulmonary collapse Collapse of lung Personal history of (healed) traumatic fracture History of fracture of vertebra Personal history of other diseases of the digestive system History of dental abscess Personal history of other diseases of the respiratory system History of chronic obstructive lung disease Personal history of other diseases of the respiratory system History of pulmonary emphysema Personal history of pneumonia (recurrent) History of pneumonia Past Surgical History: Procedure Laterality Date LUNG SURGERY 01/01/2016 Lung Surgery MOUTH SURGERY 01/01/2016 Oral Surgery Tooth Extraction Charting was completed using voice recognition technology and may include unintended errors. documented in this encounter [facility] Work Phone: Progress note 02-17-2021 Note Date & Type Note Facility 02-17-2021 Note HNO ID: [id number] Author: JOE Hernandez Service: ? Author Type: Clinical Tobacco Flavorer Type: Progress Notes Filed: 02/17/2021 4:41 PM Note Text: Radiology Service Progress Note PATIENT NAME: Jamison Denis DATE OF SERVICE: February 17, 2021 TIME: 4:40 PM PATIENT IDENTITY VERIFICATION COMPLETED USING TWO (2) IDENTIFIERS: Name and Date of confirmed by patient verbally and Name and Date of confirmed by identification band. FALL SCREENING: Has the patient had 2 falls in the last year or 1 fall with injury or currently using an Ambulatory Assistive Device (Walker, Cane, Wheelchair, Crutches, etc.)? Emergency Room Patient: Screened in ED PATIENT GENDER DATA: Male PATIENT RELEVANT IMPLANT DATA REVIEWED: Not Applicable RADIOLOGY DEPARTMENT: CT; Exam(s) Completed: Abdomen/Pelvis , Brain , Face/Mandible and Spine PERIPHERAL IV DATA: Inpatient: see LDA documentation SIGNED BY: JOE Hernandez February 17, 2021 4:40 PM [facility] Evaluation note Note Date & Type Note Facility documented in this encounter [facility] Work Phone: Evaluation note Note Date & Type Note Facility documented in this encounter [facility] Work Phone: History of Present illness Narrative Note Date & Type Note Facility History of Present illness Narrative 57-year-old male follow-up onChronic alcoholism currently patient is significant cut down on drinkingElevated LFTHyponatremia - secondary to beer potomaniaFormer smokerHistory of right tension pneumothorax status post VATSAnemiaNo new signs and symptoms needs refillDid not do lab work on previous physicalDenied any chest pain shortness of [id number] with CologuardComplaining of recent cough congestion improvingStill smoking -[facility] Work Phone: Summary Purpose Family History No Family History Records Found Sibling Name Dates Details Family history of hypertensi on(V17.49, Z82.49) Status:Active Mother Name Dates Details No pertinent family history( V49.89, Z78.9) Status:Active Father Name Dates Details Family history of hypertensi on(V17.49, Z82.49) Status:Active Brother Name Dates Details Family history of myocardial infarction(V17.3, Z82.49) Status:Active Unknown Family Member Name Dates Details Family history of hypertensi on: Father, Sibling(V17.49, Z82.49) Status:Active Family history of myocardial infarction: Brother(V17.3, Z82.49) Status:Active No pertinent family history: Mother(V49.89, Z78.9) Status:Active Unknown Family Member Name Dates Details Family history of hypertensi on: Father, Sibling(V17.49, Z82.49) Status:Active Family history of myocardial infarction: Brother(V17.3, Z82.49) Status:Active No pertinent family history: Mother(V49.89, Z78.9) Status:Active Unknown Family Member Name Dates Details Family history of hypertensi on: Father, Sibling(V17.49, Z82.49) Status:Active Family history of myocardial infarction: Brother(V17.3, Z82.49) Status:Active No pertinent family history: Mother(V49.89, Z78.9) Status:Active Advance Directives No Advanced Directives Records FoundNo Advanced Directives Records FoundNo Advanced Directives Records FoundNo Advanced Directives Records FoundNo Advanced Directives Records FoundNo Advanced Directives Records FoundNo Advanced Directives Records Found Chief Complaint Chronic alcoholism hypertension Additional Source Comments (unrecognized sect ion and content) No Status Records FoundNo Status Records FoundNo Status Records FoundNo Status Records FoundNo Status Records FoundNo Status Records FoundNo Status Records Found INFORMATION SOURCE (unrecogn ized section and content) DATE CREATED AUTHOR AUTHOR'S ORGANIZ ATION 02/21/2021 [facility] DATE CREATED AUTHOR AUTHOR'S ORGANIZ ATION 02/23/2021 [facility] DATE CREATED AUTHOR AUTHOR'S ORGANIZ ATION 11/11/2021 [facility] DATE CREATED AUTHOR AUTHOR'S ORGANIZ ATION 10/26/2022 [facility] DATE CREATED AUTHOR AUTHOR'S ORGANIZ ATION 10/28/2022 [facility] DATE CREATED AUTHOR AUTHOR'S ORGANIZ ATION 09/22/2023 [facility] Reason for Visit (unrecogniz ed section and content) Reason Comments swollen toe Care Teams (unrecognized sec tion and content) 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 This clinical summary was aggregated from multiple sources. Caution should be exercised in using it in the provision of clinical care. This summary normalizes information from multiple sources, and as a consequence, information in this document may materially change the coding, format and clinical context of patient data. In addition, data may be omitted in some cases. CLINICAL DECISIONS SHOULD BE BASED ON THE PRIMARY CLINICAL RECORDS. [facility]. provides no warranty or guarantee of the accuracy or completeness of information in this document.
[2023-10-09] MEDS: HYDROcodone Bitartrate/Apap 5/325 Tablet PO (19:02)
== END 2023-10-09 19:29 | disposition home or self-care (01) ==
LOC: ED 18:57
PROVIDERS: Emergency Provider Emergency Medicine; Visit Provider Emergency Medicine
DX: S42.341A Displaced spiral fracture of shaft of humerus, right arm, initial encounter for closed fracture (principal); W00.0XXA Fall on same level due to ice and snow, initial encounter; F17.210 Nicotine dependence, cigarettes, uncomplicated; Y92.512 Supermarket, store or market as the place of occurrence of the external cause; I10 Essential (primary) hypertension
CPT/HCPCS: 73030; 99282

== ENCOUNTER 2023-10-14 10:21 | Emergency (ER) | payer MEDICAID, SELFPAY ==
[2023-10-14 10:23] VITALS: BP 116/74; PULSE 96; RESP 16; TEMP 36.3; O2SAT 100; BMI 21.7
--- NOTE | 2023-10-14 10:34 | EDS_ITS ---
HPI History of Present Illness HPI Narrative: Patient presents with right shoulder pain that began after a fall 5 days ago. Patient was seen here at that time and was diagnosed with a proximal humerus fracture. Patient was placed in a sling and swath at that time. Patient states he has not followed up with orthopedics yet. Patient states his pain became worse today. Patient states he ran out of his pain medication. Patient denies any new injury or trauma. Patient denies any paresthesias or weakness. Chief Complaint: Upper Extremity Injury Informant: patient Onset/Context/Timing Onset: Days (5) Context: Sudden Onset Timing: Continuous Quality of Pain: Stabbing Location: Right shoulder Worsened by: Movement Relieved by: Rest Associated Symptoms Associated Symptoms: Negative for Parasthesia, Weakness or Loss of Funtion PFSH PFSH Medical History History of pneumothorax HTN (hypertension) Home Medications carvedilol 3.125 mg tablet 3.125 mg PO BID 02/01/23 [History Last Taken Unknown] lisinopril 5 mg tablet 5 mg PO DAILY 02/01/23 [History Last Taken Unknown] hydrocodone-acetaminophen 5-325mg 5mg-325mg 1 tab PO Q6H PRN PRN Pain 3 days #12 TABLETS 10/14/23 [Rx Last Taken Unknown] Allergy/AdvReac Type Severity Reaction Status Date / Time No Known Allergies Allergy Verified 10/14/23 10:26 Surgical History no surgical history no surgical history Social History Smoking Status: Current every day smoker tobacco type: cigarettes alcohol intake: current alcohol intake frequency: a few times a month ROS ROS ED Constitutional Constitutional ED: Denies chills or fever(s) Eyes Eyes: Denies blurry vision or change in vision ENT ENT ED: Denies rhinorrhea or sore throat Cardiovascular Cardiovascular: Denies chest pain or palpitations Respiratory/Chest Respiratory/Chest: Denies cough or dyspnea Gastrointestinal Gastrointestinal: Denies nausea or vomiting Genitourinary Genitourinary ED: Denies dysuria or hematuria Musculoskeletal Musculoskeletal: Reports back pain; Denies neck pain Integumentary Denies abscess or rash Neurologic Neurologic: Denies headache(s) or weakness Allergic/Immunologic Allergic/Immunologic ED: Denies mouth swelling or urticaria EXAM Physical Exam Const Vital Signs: 10/14/23 10:23 Temperature 97.4 F L Temperature Source Temporal Pulse Rate 96 Respiratory Rate 16 Blood Pressure 116/74 Blood Pressure Mean 88 Pulse Ox 100 Oxygen Delivery Method Room Air Positive well nourished and well developed General Appearance ED: well developed and NAD HEENT Reports moist mucous membranes Neck full ROM and supple Extremity Extremity Narrative: There is tenderness over the right shoulder and proximal humerus. There is no obvious deformity noted. Range of motion was limited in all motions of the right shoulder secondary to pain. Radial pulses are equal bilaterally. Strength is 5/5 in the radial, median, and ulnar areas. Sensation was intact to light touch in the radial, median, ulnar, and axillary areas. Neuro oriented x3, CN's II-XII intact bilaterally, moves all extremities, no focal motor deficits and no sensory deficits noted Sensorium / Orientation: alert Motor Exam: strength 5/5 throughout Psych mental status grossly normal MDM MDM MDM Narrative Medical decision making narrative: Since patient did not have any new injuries, I do not feel repeat x-rays are necessary at this time. Patient's arm was readjusted in his sling and swath. Patient was given a prescription for a short course of [place]. Patient was encouraged to follow-up with orthopedics. Patient was advised that further analgesic medications would not come from the emergency department. Patient understood and was agreeable with the plan. All questions were answered. Discharge Plan Triage Chief Complaint: Upper Extremity Injury ED Provider: Iglesia Duggan Dx/Rx/DC Orders Clinical Impression: Closed fracture of proximal end of right humerus Instructions: ED Fracture, Shoulder Prescriptions: Continued hydrocodone-acetaminophen 5-325 mg tablet 1 tab PO Q6H PRN PRN (Reason: Pain) 3 Days Qty: 12 0RF No Action carvedilol 3.125 mg Tablet 3.125 mg PO BID Rx Instructions: must administer with a meal/food lisinopril 5 mg Tablet 5 mg PO DAILY Referrals: Sony Mendiola MD [Med Staff - Active Staff] - 5-7 Days Disposition Disposition: Home, Self Care Capacity [employer] Reflex Medical hold order details:: IF a medical hold is selected below, a suggested order for a MEDICAL HOLD will reflex upon signing the document. Next of kin: [place] law dictates a PRIORITY LIST for identifying legal decision-maker/legal ne xt of kin in the following order (LNOK): 1st: The patient?s legal guardian, if any 2nd: The patient's spouse (if status is questionable, consult Risk Management) 3rd: The patient?s adult child(luz maria) (majority, if multiple children) 4th: The patient?s parents 5th: The patient?s adult siblings (majority, if multiple children siblings)
== END 2023-10-14 11:09 | disposition home or self-care (01) ==
PROVIDERS: Emergency Provider Emergency Medicine; Visit Provider Emergency Medicine
DX: S42.201D Unspecified fracture of upper end of right humerus, subsequent encounter for fracture with routine healing (principal); F17.210 Nicotine dependence, cigarettes, uncomplicated; I10 Essential (primary) hypertension; W19.XXXD Unspecified fall, subsequent encounter
CPT/HCPCS: 99282

== ENCOUNTER 2024-07-03 16:03 | Emergency (ER) | payer MEDICAID, SELFPAY ==
[2024-07-03 16:31] VITALS: BP 149/90; PULSE 99; RESP 18; TEMP 36.6; O2SAT 78; BMI 20.5
[2024-07-03 19:18] VITALS: BP 160/101; RESP 18; O2SAT 97
--- NOTE | 2024-07-03 19:37 | ED.VIS.DENTA ---
HPI History of Present Illness Chief Complaint: Dental Detail of Chief Complaint: Left lower molar. Informant: patient Onset/Context/Timing Onset: Days Context: Sudden Onset Timing: Continuous Quality: Pain Location: Left lower molar Current Severity: Mild Maximum Severity: Moderate Worsened by: Nothing Relieved by: - (Nothing) Associated Symptoms Assocated Symptom - Dental: jaw swelling; Negative for fever, face swelling, cold sensitivity or hot sensitivity Narrative Narrative: Patient 59-year-old male. Who presents Rizal dental pain. Denies any sensitivity to hot or cold liquids. Concerned he has an abscess. He does not have a dentist in the area. He moved from [place]. He does have history of hypertension. He denies history medic fever, heart murmur, SBE or IV drug use. He denies difficulty opening closes mouth. Nuys difficulty swallowing. No change in voice. He has not noted any skin lesions. Prior similar symptoms: Yes Recent Illness/Hospitalization: No PFSH PFSH Medical History Closed fracture of right proximal humerus History of pneumothorax HTN (hypertension) Home Medications ?Medication ?Instructions ?Recorded ?Last Taken ?Type carvedilol 3.125 mg tablet 3.125 mg PO BID 02/01/23 Unknown History lisinopril 5 mg tablet 5 mg PO DAILY 02/01/23 Unknown History hydrocodone-acetaminophen 5-325mg 1 tab PO Q6H PRN PRN Pain 3 days 10/14/23 Unknown Rx 5mg-325mg #12 TABLETS hydrocodone-acetaminophen 5-325mg 1 tab PO Q6H PRN PRN Pain 3 days 07/03/24 Unknown Rx 5mg-325mg #10 TABLETS naproxen 500 mg tablet 500 mg PO BID #14 tabs 07/03/24 Unknown Rx penicillin V potassium 500 mg 500 mg PO 4X/DAY #28 tabs 07/03/24 Unknown Rx tablet Allergy/AdvReac Type Severity Reaction Status Date / Time No Known Allergies Allergy Verified 07/03/24 16:33 Social History Smoking Status: Current every day smoker tobacco type: cigarettes alcohol intake: current alcohol intake frequency: a few times a month ROS ROS ED Constitutional Constitutional ED: Denies chills, fever(s), subjective or sweats ENT ENT ED: Reports other Details: Denies trismus. ; Denies ear pain, rhinorrhea or sore throat Cardiovascular Cardiovascular: Denies chest pain, palpitations or racing heartbeat Respiratory/Chest Respiratory/Chest: Denies cough or dyspnea Gastrointestinal Gastrointestinal: Denies nausea or vomiting Hematologic/Lymphatic Hematologic/Lymphatic: Denies easy bleeding or easy bruising EXAM Physical Exam Const Vital Signs: 07/03/24 16:31 07/03/24 19:18 Temperature 97.8 F Temperature Source Temporal Pulse Rate 99 Respiratory Rate 18 18 Blood Pressure 149/90 H 160/101 H Blood Pressure Mean 109 120 Pulse Ox 78 97 Oxygen Delivery Method Room Air Room Air Positive well nourished and well developed General Appearance ED: well developed and NAD HEENT HEENT Narrative: There is no trismus. There is no swelling of the floor of the mouth. There is swelling near the angle of the mandible on the left side. Mouth ED: Yes lips normal, Yes tongue normal, Yes salivary gland normal, No mouth trauma, Yes oral and palatal mucosa abnormal and No salivary gland abnormal Mouth: lips normal, tongue normal, salivary gland normal, No mouth trauma, oral and palatal mucosa abnormal and No salivary gland abnormal Teeth and Gingiva: abnormal tooth and associated gingiva, caries, gingiva abnormal, poor dentition and teeth discoloration Throat: posterior oropharynx normal Eyes PERRL and EOMs intact bilaterally General Eye ED: Negative for pale conjunctiva Neck supple and no JVD General: normal visual inspection, tenderness and submandibular swelling; Negative for anterior neck swelling or other Resp normal respiratory effort, no retractions and clear to auscultation bilaterally Cardio regular rate, regular rhythm, S1 normal heart sound, S2 normal heart sound and no murmurs Extremity normal to inspection and no joint enlargement Neuro oriented x3 and CN's II-XII intact bilaterally Sensorium / Orientation: alert Psych mental status grossly normal Skin no rashes or lesions noted and no wounds MDM MDM MDM Narrative Medical decision making narrative: I believe there is remanence of tooth #17 possibly 18 on the left. There is swelling of the gum. There is no fluctuance. There is no trismus. There is no concern for Ludewig's angina. Patient trachea is midline. There is no stridor. Will treat with Pen-Vee K and appropriate oral analgesics. Patient was given dental sheet since she is new to the area. Discharge Plan Triage Chief Complaint: Dental ED Provider: Livan Hall Dx/Rx/DC Orders Clinical Impression: Dental caries extending into pulp, Abscess, dental, Gingivitis, Chronic periodontal disease Instructions: ED Dental Abscess Prescriptions: New hydrocodone-acetaminophen 5-325 mg tablet 1 tab PO Q6H PRN PRN (Reason: Pain) 3 Days Qty: 10 0RF penicillin V potassium 500 mg tablet 500 mg PO 4X/DAY Qty: 28 0RF naproxen 500 mg tablet 500 mg PO BID Qty: 14 0RF No Action carvedilol 3.125 mg Tablet 3.125 mg PO BID Rx Instructions: must administer with a meal/food lisinopril 5 mg Tablet 5 mg PO DAILY hydrocodone-acetaminophen 5-325 mg tablet 1 tab PO Q6H PRN PRN (Reason: Pain) 3 Days Qty: 12 0RF Primary Care Provider: Care Physician,No Primary Referrals: Care Physician,No Primary [Primary Care Provider] - Dentist,Your [STAFF PHYSICIAN] - 3-5 Days Print Language: French Disposition Disposition: Home, Self Care
[2024-07-03] MEDS: Penicillin Vk 250 MG Tablet 500 MG PO (20:01)
[2024-07-03] MEDS: Naproxen 500 MG Tablet PO (20:02)
== END 2024-07-03 20:05 | disposition home or self-care (01) ==
LOC: ED 19:51
PROVIDERS: Emergency Provider Emergency Medicine; Visit Provider Emergency Medicine
DX: K04.7 Periapical abscess without sinus (principal); K02.9 Dental caries, unspecified; I10 Essential (primary) hypertension; K05.10 Chronic gingivitis, plaque induced; F17.210 Nicotine dependence, cigarettes, uncomplicated
CPT/HCPCS: 99283

== ENCOUNTER 2025-05-21 02:49 | Emergency (ER) | payer MEDICAID, SELFPAY ==
[2025-05-21] VITALS (7 sets, daily range): BP systolic 121–129; BP diastolic 89–93; PULSE 81–93; RESP 16–20; TEMP 36.7–36.8; O2SAT 93–95; BMI 22.3
[2025-05-21] MEDS: Albuterol 2.5 MG/3 ML VIAL.NEB. INHALATION (03:15)
--- NOTE | 2025-05-21 03:39 | RAD_ITS ---
PROCEDURE: CHEST PA AND LATERAL 05/21/2025 REASON FOR EXAM: COUGH TECHNIQUE: CHEST PA AND LATERAL COMPARISON: None. FINDINGS: Moderate emphysema. Bilateral chronic deformities of the ribs. Mild osteopenia. There is no demonstrated pleural abnormality. Normal heart and pericardium. Normal mediastinum and lizbet. Normal visualized pulmonary arteries. Normal visualized aortic arch and descending thoracic aorta. Normal visualized thoracic spine. Normal visualized ribs, clavicles, and shoulders. There is no demonstrated abnormality of the visualized soft tissue structures of the upper abdomen. RAD/Chest PA and Lateral IMPRESSION: Moderate emphysema. [facility]
--- NOTE | 2025-05-21 04:04 | EDS_ITS ---
HPI History of Present Illness Chief Complaint: Shortness of Breath Informant: patient Narrative Narrative: Patient is a 60-year-old male with past medical history of smoking and reported COPD as well as hypertension. He states that he smoked roughly a pack a day for multiple years and has decreased to half a pack a day now. He states however he has been smoking for approximately 30 to 40 years. 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 He states over the last 5 days he has had increased congestion drainage and cough. This evening he got up to use the restroom and he states he had increasing sh ortness of breath that did not respond to the albuterol inhaler he had and therefore EMS was called and he was brought in for evaluation [facility] Medical History Closed fracture of right proximal humerus History of pneumothorax HTN (hypertension) Home Medications ?Medication ?Instructions ?Recorded ?Last Taken ?Type carvedilol 3.125 mg tablet 3.125 mg PO BID 02/01/23 Un known History lisinopril 5 mg tablet 5 mg PO DAILY 02/01/23 Unkno wn History albuterol sulfate 90 mcg/actuation 1 - 2 puff inhalati on Q4H PRN PRN 05/21/25 Unknown Rx aerosol inhaler (Ventolin HFA) Wheezing/SOB #1 device doxycycline monohydrate 100 mg 100 mg PO BID 7 days #1 4 CAPSULES 05/21/25 Unknown Rx capsule prednisone 20 mg tablet 40 mg (2 x 20 mg) PO DAILY 5 days 05/21/25 Unknown Rx #10 tabs Allergy/AdvReac Type Severity Reaction Status Date / Time No Known Allergies Allergy Verified 05/21/25 02:50 Social History Smoking Status: Current every day smoker tobacco type: cigarettes alcohol intake: current alcohol intake frequency: a few times a month ROS ROS ED Constitutional Constitutional ED: Denies chills or fever(s) ENT ENT ED: Reports rhinorrhea and sore throat Cardiovascular Cardiovascular: Denies chest pain Respiratory/Chest Respiratory/Chest: Reports cough and dyspnea Gastrointestinal Gastrointestinal: Denies abdominal pain, diarrhea, nausea or vomiting Musculoskeletal Musculoskeletal: Denies myalgias Integumentary Denies rash Neurologic Neurologic: Denies headache(s) Hematologic/Lymphatic Hematologic/Lymphatic: Denies easy bleeding or easy bruising Allergic/Immunologic Allergic/Immunologic ED: Denies mouth swelling or tongue swelling EXAM Physical Exam Const Vital Signs: 05/21/25 02:50 05/21/25 02:55 05/21/25 02:56 Temperature 98.1 F 98.1 F Temperature Source Oral Oral Pulse Rate 87 92 Respiratory Rate 20 H 20 H Respiratory Effort Short of Breath Labored Respiratory Depth Shallow Respiratory Pattern Tachypnea Blood Pressure 122/89 H 122/89 H Blood Pressure Mean 100 100 Pulse Ox 94 95 Oxygen Delivery Method Room Air Room Air Room Air 05/21/25 03:19 05/21/25 03:33 05/21/25 04:00 Temperature 98.1 F 98.2 F Temperature Source Oral Oral Pulse Rate 81 83 85 Respiratory Rate 16 20 H 18 Respiratory Effort Respiratory Depth Respiratory Pattern Normal Blood Pressure 127/91 H 129/93 H Blood Pressure Mean 103 105 Pulse Ox 93 94 Oxygen Delivery Method Room Air Room Air 05/21/25 05:03 Temperature 98.1 F Temperature Source Pulse Rate 93 Respiratory Rate 17 Respiratory Effort Respiratory Depth Respiratory Pattern Blood Pressure 121/89 H Blood Pressure Mean 99 Pulse Ox 93 Oxygen Delivery Method Positive well nourished and well developed General Appearance ED: well developed; Negative for pallor HEENT Reports moist mucous membranes HEENT Narrative: Normocephalic atraumatic No tongue or lip swelling no oral lesions no airway edema or compromise There is cobblestoning noted in the posterior pharynx consistent with sinus drainage; no secondary findings to suggest infection Eyes PERRL and EOMs intact bilaterally General Eye ED: Negative for scleral icterus Neck supple and no JVD Chest Wall palpation of chest normal Resp Resp Narrative: Breath sounds are diminished throughout with diffuse expiratory and expiratory wheezing. Patient has mild tachypnea. However no nasal flaring or retractions or accessory muscle use. No stridor noted. Cardio regular rate and regular rhythm Extremity normal to inspection Extremity Narrative: No asymmetric edema no pitting edema negative Homans' sign bilaterally Neuro oriented x3, CN's II-XII intact bilaterally and no sensory deficits noted Sensorium / Orientation: alert Motor Exam: strength 5/5 throughout Psych mental status grossly normal Skin no rashes or lesions noted General Skin Exam: Negative for jaundice or pallor MDM MDM MDM Narrative Medical decision making narrative: Patient arrived to the ER with improvement in his pulse ox and breathing after receiving a nebulizer from EMS. His history and exam is consistent with COPD exacerbation but in order to rule out potential pneumonia or pneumothorax or a viral source such as COVID influenza or RSV as a cause of his symptoms a viral swab and chest x-ray were obtained. Chest x-ray revealed emphysematous changes without pneumonia or pneumothorax. COVID influenza and RSV swab was negative. After receiving steroids and breathing treatments his pulse ox was 93% and his work of breathing and breath sounds improved as well. Therefore at this time he does not have pneumonia or pneumothorax he is not in respiratory distress or req uiring supplemental oxygen and therefore there is no need for further intervention or admission and he is otherwise safe for discharge History & Record Review Discussion w/independent historian: Patient Radiography Diagnostic Testing: Clinical Impression(s) from Imaging Studies Chest X-Ray 05/21/25 03:39 IMPRESSION: Moderate emphysema. Reading Location: [place] [id number] 2 view chest x-ray as interpreted by the emergency medicine physician reveals emphysematous changes without acute infiltrate or pneumothorax Discharge Plan Triage Chief Complaint: Shortness of Breath ED Provider: Cyril Linares Dx/Rx/DC Orders Clinical Impression: Acute exacerbation of chronic obstructive pulmonary disease, Hypertension Instructions: COPD: Wheezing and Chest Tightness Prescriptions: New prednisone 20 mg tablet 40 mg PO DAILY 5 Days Qty: 10 0RF doxycycline monohydrate 100 mg capsule 100 mg PO BID 7 Days Qty: 14 0RF albuterol sulfate [Ventolin HFA] 90 mcg/actuation HFA aerosol inhaler 1 - 2 puff inhalation Q4H PRN PRN (Reason: Wheezing/SOB) Qty: 1 2RF No Action carvedilol 3.125 mg Tablet 3.125 mg PO BID Rx Instructions: must administer with a meal/food lisinopril 5 mg Tablet 5 mg PO DAILY Primary Care Provider: MARII LEUNG Referrals: Care Physician,No Primary [Non-Staff] - Activity Restrictions/Additional Instructions: Your x-ray did not reveal pneumonia or a hole in the lung and your COVID influenza and RSV test were negative. However your history exam and symptoms correlate with a other virus causing lung inflammation making it difficult to breathe. Therefore use the steroid and albuterol to help prevent bronchospasm and inflammation and take antibiotic to prevent a developing infection. Return to the ER should you have any further concerns Print Language: Lithuanian Disposition Disposition: Home, Self Care
--- OUTSIDE RECORDS SUMMARY | 2025-05-21 04:34 | XMS RPT_ITS | CCD ---
Author Organization [facility] Care Team Providers Care Monologist Name Role Phone EBONY BARLOW Unavailable Unavailable AMAIRANI, MARII Unavailable Unavailable Amairani, Marii Unavailable Unavailable Amairani, Marii B Unavailable Unavailable Amairani, Marii B Unavailable Unavailable Unavailable CLIFF HOWELL Primary Care Unavailable PROVIDER, UNKNOWN Admitting Unavailable CADEN MOSCOSO Attending Unavailable Amairani, Marii Bhaveshkumar Referring Unava ilable Amairani, Marii Bhaveshkumar Attending Unava ilable Amairani, Marii Bhaveshkumar Primary Care Unava ilable Amairani, Marii Bhaveshkumar Primary Care Unava ilable Amairani, Marii Bhaveshkumar Referring Unava ilable Amairani, Marii Bhaveshkumar Attending Unava ilable AmairaniMarii jasso MD Primary Care Provider Marii Bales MD Unavailable [phone] Marii Bales MD Unavailable Marii Bales MD Primary Care Provider Katy Tovar MD Primary Care Provider WHITNEY HOWARD Attending Unavailable KATY TOVAR Referring Unavailable KATY TOVAR Primary Care Unavailable WHITNEY HOWARD Referring Unavailable KATY TOVAR Primary Care Unavailable MARII BALES B Primary Care Unavailable FETTERMAN, KATY Primary Care Unavailable VALEUNER WHITNEY A Referring Unavailable VALLIER, WHITNEY A Referring Unavailable FETTERMAN, KATY Primary Care Unavailable FETTERMAN, KATY Primary Care Unavailable FETTERMAN, KATY Referring Unavailable VALBRITTANY WHITNEY A Attending Unavailable Care Physician, No Primary Primary Care Unava ilable Livan Hall Attending Unavailable Isrrael Cali Attending Unavailable Care Physician, No Primary Primary Care Unava ilable Care Physician, No Primary Primary Care Unava ilable Iglesia Duggan Attending Unavailable Care Physician, No Primary Primary Care Unava ilable Sony Mendiola Attending Unavailable Care Physician, No Primary Referring Unava ilable MARII BALES Primary Care Unavailable VALERIE MICHELLE Attending Unavailable Marii Bales MD Unavailable Marii Bales MD Primary Care Provider MARII BALES Attending Unavailable MARII BALES Primary Care Unavailable ANNMARIE NIXON Attending Unavailable VALERIE MICHELLE Referring Unavailable MARII BALES Primary Care Unavailable MARII BALES Attending Unavailable MARII BALES Primary Care Unavailable Allergies Allergy Classification Reported Allergen(s) Allergy Type Date of Onset Reaction(s) Facility (9 sources) Aspirin; Translations: [Aspirin TABS] Drug Allergy 02-26-2003 Anaphylaxis [facility] (5 sources) Aspirin; Translations: [ASPIRIN] Drug Allergy 02-26-[address] [facility] Repository Medications Current Medications Medication Drug Class(es) Dates Sig (Normalized) Sig (Original) [id number] 200 actuat albuterol 0.09 mg/actuat metered dose inhaler (13 sources) beta2-Adrenergic Agonist Start: 04-27-2023 End: 06-09-2024 take 2 puff(s) by inhalation every six hours for wheezing albuterol 90 mcg/actuation inhaler Indications: Centrilobular emphysema (Multi) Inhale 2 puffs every 6 hours if needed for wheezing. 18 g 1 06/09/2024 Active Start: 04-27-2023 take 2 puff(s) by in halation every six hours as needed albuterol HFA (PROVENTIL HFA, VENTOLIN HFA) 90 mcg/actuation inhaler Inhale 2 Puffs as instructed every 6 hours as needed. 0 04/27/2023 Active Start: 02-20-2021 take 2 puff(s) by in halation every four hours as needed albuterol HFA (PROVENTIL HFA, VENTOLIN HFA) 90 mcg/actuation inhaler Inhale 2 Puffs as instructed every 4 hours as needed. 18 g 0 02/20/2021 Active Start: 02-20-2021 take 2 puff(s) by mo uth every four hours as needed Albuterol Sulfate HFA 108 (90 Base) MCG/ACT Inhalation Aerosol Solution INHALE 2 PUFFS BY MOUTH EVERY 4 HOURS DIRECTED NEEDED Quantity: 1 Refills: 0 Ordered: 28-Oct-2021 Marii Bales MD Start : 20-Feb-2021 Active Start: 01-13-2013 End: 04-27-2023 albuterol 90 mcg/actuation i nhaler Inhale. 0 01/13/2013 04/27/2023 Discontinued (Reorder) Comment on above: Inhale 2 Puffs as in structed every 4 hours as needed. Inhale 2 Puffs as in structed every 6 hours as needed. amoxicillin 875 mg / clavulanate 125 mg oral tablet (1 source) Penicillin-class Antibacterial Start: End: take 1 tablet by mouth every twelve hours amoxicillin-pot clavulanate (Augmentin) 875-125 mg tablet Indications: Recurrent acute suppurative otitis media of right ear with spontaneous rupture of tympanic membrane , Suppurative otitis media of right ear, unspecified chronicity Take 1 tablet by mouth every 12 hours for 7 days. 14 tablet 10/28/2024 11/04/2024 Active hydroCHLOROthiazide 12.5 mg / lisinopril 10 mg oral tablet (17 sources) Thiazide Diuretic, Angiotensin Converting Enzyme Inhibitor Start: 023 End: 025 take 1 tablet by mouth once daily lisinopriL-hydroch lorothiazide 10-12.5 mg tablet Indications: Hypertension, unspecified type Take 1 tablet by mouth once daily. 90 tablet 2 12/08/2024 Active Start: 01-31-2021 take 10-12.5 mg by mouth once lisinopril-hydroCHLOROthiazide (PRINZIDE,ZESTORETIC) 10-12.5 mg per tablet Take 1 tablet by mouth once daily. 0 01/31/2021 Active Start: 11-12-2015 take 1 tablet by kiran th once daily Lisinopril-hydroCHLOROthiazide 10-12.5 M G Oral Tablet TAKE 1 TABLET DAILY. Quantity: 90 Refills: 1 Ordered: 27-Oct-2022 Marii Bales MD Start : 12-Nov-2015 Active Comment on above: Take 1 tablet by kiran th once daily. ibuprofen 800 mg oral tablet (1 source) Nonsteroidal Anti-inflammatory Drug Start: 4 End: 4 take 1 tablet by mouth every eight hours as needed ibuprofen (MOTRIN) 800 mg tablet Take 1 tablet by mouth every 8 hours as needed (for pain.). 90 tablet 0 10/28/2023 11/27/2023 Active Comment on above: Take 1 tablet by kiran th every 8 hours as needed (for pain.). ofloxacin 3 mg/ml otic solution (4 sources) Quinolone Antimicrobial Start: 5 End: 5 ofloxacin (Floxin) 0.3 % otic solution Administer 5 drops into the right ear 2 times a day for 7 days. 5 mL 11/07/2024 11/07/2024 Discontinued Start: 10-28-2024 End: 11-07-2024 ofloxacin (Floxin) 0.3 % valeria c solution Indications: Recurrent acute suppurative otitis media of right ear with spontaneous rupture of tympanic membrane , Suppurative otitis media of right ear, unspecified chronicity Administer 5 drops into affected ear(s) 2 times a day for 5 days. 0.25 mL 10/28/2024 11/07/2024 Discontinued (Reorder) Completed/Discontinued Medications Medication Drug Class(es) Dates Sig (Normalized) Sig (Original) acetaminophen 500 mg oral tablet (1 source) take 1 tablet by mouth every eight hours as needed acetaminophen (TYLENOL EXTRA STRENGTH) 500 mg tablet Take 500 mg by mouth every 8 hours as needed for pain. 0 Active Comment on above: Take 500 mg by mouth every 8 hours as needed for pain. acetaminophen 325 mg / HYDROcodone bitartrate 5 mg oral tablet (2 sources) Opioid Agonist Start: 10-14-2023 HYDROcodone-acetami nophen (NORCO) 5-325 mg per tablet Start: 10-09-2023 take 1 tablet by kiran th every six hours as needed Hydrocodone-Acetaminophen Active 1 TABLE T PO EVERY 6 HOURS NEEDED 08 29October 09, 2023 acetaminophen 325 mg / oxyCODONE hydrochloride 5 mg oral tablet (2 sources) Opioid Agonist Start: 02-01-2023 End: 02-15-2023 take 1 tablet by mouth every six hours Oxycodone-Acetaminophen (Percocet) 5-325 mg tablet Discontinued 1 TABLET PO EVERY 6 HOURS 08 29February 01, 2023 February 15, 2023 12:28pm aspirin 81 mg delayed release oral tablet (4 sources) Platelet Aggregation Inhibitor, Nonsteroidal Anti-inflammator y Drug Start: 12-27-2017 Aspirin 81 MG Oral Tablet Delayed Release Quantity: 0 Refills: 0 Ordered: 27-Dec-2017 DO Start : 27-Dec-2017 Active Start: 12-27-2017 Aspirin 81 MG Oral Tablet Delayed Release Refills: 0 DO Start : 27-Dec-2017 Active carbamide peroxide 65 mg/ml otic solution (1 source) Start: 02-11-2021 Debrox 6.5 % O tic Solution 2 DROPS TWICE A DAY Quantity: 1 Refills: 0 Ordered: 11-Feb-2021 Marii Bales MD Start : 11-Feb-2021 Active carvedilol 6.25 mg oral tablet (19 sources) alpha-Adrenergi c Mckenna, beta-Adrenergic Mckenna Start: 04-15-2023 End: 12-08-2025 take 1 tablet by mouth twice daily carvedilol (Coreg) 6.25 mg tablet Indications: Hypertension, unspecified type Take 1 tablet (6.25 mg) by mouth 2 times a day. 180 tablet 2 06/09/2024 12/08/2024 Discontinued (Reorder) Start: 02-01-2023 take 3.125 mg by kiran th twice daily at mealtime Carvedilol Active 3.125 MG PO TWICE A DAY January 31, 2023 11:00pm must administer with a meal/food Start: 12-24-2015 carvedilol (CO REG) 6.25 mg tablet Take by mouth q 12 HR. 0 12/24/2015 Active Start: 12-24-2015 take 1 tablet by kiran th twice daily Carvedilol 6.25 MG Oral Tablet Take 1 tablet twice daily Quantity: 180 Refills: 1 Ordered: 27-Oct-2022 Marii Bales MD Start : 24-Dec-2015 Active End: 10-28-2023 CARVEDILOL ORAL Take by mout h. 0 10/28/2023 Discontinued (Duplicate Entry) Comment on above: Take by mouth q 12 H R. Take by mouth. ciprofloxacin 3 mg/ml ophthalmic solution (1 source) Quinolone Antimicrobial Start : 07-12 End: 10-28 take 2 drop(s) into the eye(s) twice daily ciprofloxacin HCl (CILOXAN) 0.3 % ophthalmic solution Indications: Acute otitis externa of right ear, unspecified type Instill two drops in the right EAR twice daily. 1 Bottle 0 07/12/2019 10/28/2023 Discontinued (Course of therapy completed) Comment on above: Instill two drops in the right EAR twice daily. dexamethasone phosphate 1 mg/ml ophthalmic solution (1 source) Corticosteroid Start : 07-12 End: 10-28 take 2 drop(s) into the eye(s) twice daily dexamethasone 0.1% 0.1 % ophthalmic solution Indications: Acute otitis externa of right ear, unspecified type Use two drops in the right EAR twice daily 5 mL 0 07/12/2019 10/28/2023 Discontinued (Course of therapy completed) Comment on above: Use two drops in the right EAR twice daily hydroCHLOROthiazide 25 mg oral tablet (1 source) Thiazide Diuretic Start : 01-13 take 1 tablet by mouth once daily hydroCHLOROthiazide 25 mg tablet Take 1 tablet by mouth once daily. 0 01/13/2013 Active Comment on above: Take 1 tablet by kiran th once daily. lisinopril 5 mg oral tablet (4 sources) Angiotensin Converting Enzyme Inhibitor Start : 02-01 lisinopril (ZESTRIL) 5 mg tablet Take by mouth. 0 02/01/2023 Active End: 10-28-2023 LISINOPRIL ORAL Take by mout h. 0 10/28/2023 Discontinued (Discontinued by another Health Care Provider) Comment on above: Take by mouth. Problems Active Problems Problem Classification Problem Date Documented Da te Episodic/Chronic Alcohol-related disorders (7 sources) Alcoholism; Translations: [Other and unspecified alcohol dependence, unspecified] Onset: 10-28-2023 09-17-2023 Chronic Allergic reactions (4 sources) Eczema; Translations: [Contact dermatitis and other eczema, unspecified cause] Episodic Chronic obstructive pulmonary disease and bronchiectasis (8 sources) Mild chronic obstructive pulmonary disease; Translations: [Chronic airway obstruction, not elsewhere classified] Onset: 06-09-2024 10-28-2023 Chronic Deficiency and other anemia (4 sources) Anemia due to blood loss; Translations: [Iron deficiency anemia secondary to blood loss (chronic)] Chronic Disorders of teeth and jaw (1 source) Other specified disorders of teeth and supporting structures; Translations: [Other specified disorders of teeth and supporting structures] Onset: 07-26-2024 Episodic Essential hypertension (20 sources) Essential hypertension; Translations: [Unspecified essential hypertension] Onset: 04-27-2023 04-27-2023 Chronic Fluid and electrolyte disorders (5 sources) Hyponatremia; Translations: [Hyposmolality and/or hyponatremia] 09-17-2023 Episodic Fracture of upper limb (3 sources) Fracture of phalanx of finger; Translations: [Fracture of unspecified phalanx of unspecified finger, initial encounter for closed fracture] 02-01-2023 Episodic Immunizations and screening for infectious disease (6 sources) Patient encounter status; Translations: [Other specified vaccination] Episodic Mood disorders (5 sources) Depressive disorder; Translations: [Depressive disorder, not elsewhere classified] Onset: 10-28-2023 10-28-2023 Chronic Nutritional deficiencies (5 sources) Vitamin D deficiency; Translations: [Unspecified vitamin D deficiency] Onset: 01-16-2013 10-28-2023 Chronic Other ear and sense organ disorders (4 sources) Sensation of blocked ears; Translations: [Other disorders of ear] Episodic Other ear and sense organ disorders (3 sources) Impacted cerumen; Translations: [Impacted cerumen, bilateral] 02-01-2023 Episodic Other ear and sense organ disorders (1 source) Infective otitis externa of right ear; Translations: [Other infective otitis externa, right ear] 11-07-2024 Episodic Other ear and sense organ disorders (1 source) Impacted cerumen in left ear; Translations: [Impacted cerumen, left ear] 11-07-2024 Episodic Other fractures (4 sources) Closed fracture of multiple ribs; Translations: [Late effect of fracture of spine and trunk without mention of spinal cord lesion] Episodic Other injuries and conditions due to external causes (4 sources) H/O: vertebral fracture; Translations: [Personal history of traumatic fracture] Episodic Other lower respiratory disease (9 sources) History of chronic obstructive airway disease; Translations: [Personal history of other diseases of respiratory system] Onset: 10-28-2023 10-28-2023 Episodic Other lower respiratory disease (4 sources) H/O: pneumonia; Translations: [Personal history of pneumonia (recurrent)] Episodic Other lower respiratory disease (1 source) Disorder of lung; Translations: [History of Collapse of lung] Episodic Other male genital disorders (1 source) Impotence; Translations: [Erectile dysfunction] Chronic Other male genital disorders (4 sources) Male erectile dysfunction, unspecified; Translations: [Erectile dysfunction] Onset: 10-28-2023 10-28-2023 Chronic Other non-traumatic joint disorders (1 source) Stiffness of left hand, not elsewhere classified; Translations: [Stiffness of finger joint, left] Onset: 12-22-2023 Episodic Otitis media and related conditions (12 sources) Recurrent acute suppurative otitis media of right ear with spontaneous rupture of tympanic membrane; Translations: [Suppurative otitis media of right ear] Onset: 10-28-2024 10-28-2024 Episodic Pleurisy; pneumothorax; pulmonary collapse (7 sources) Right pneumothorax; Translations: [Other pneumothorax] Episodic Residual codes; unclassified (4 sources) H/O: Disorder; Translations: [Personal history of other diseases of digestive system] Episodic Residual codes; unclassified (1 source) Tobacco user; Translations: [Tobacco use] 10-28-2023 Episodic Residual codes; unclassified (1 source) Alcohol misuser in household; Translations: [Other specified personal risk factors, not elsewhere classified] 10-28-2023 Episodic Residual codes; unclassified (1 source) Pain, unspecified; Translations: [Pain] Onset: 10-28-2023 Episodic Skin and subcutaneous tissue infections (4 sources) Abscess; Translations: [Cellulitis and abscess of unspecified sites] Episodic Substance-related disorders (5 sources) Nicotine dependence; Translations: [Tobacco use disorder] Onset: 10-28-2023 10-28-2023 Chronic Superficial injury; contusion (4 sources) Contusion of rib; Translations: [Contusion of chest wall] Episodic Past or Other Problems Problem Classification Problem Date Documented Da te Episodic/Chronic Fracture of upper limb (9 sources) Fracture at wrist and/or hand level; Translations: [Fracture of unspecified carpal bone, right wrist, initial encounter for closed fracture] Onset: 10-18-2023 02-01-2023 Episodic Other injuries and conditions due to external causes (1 source) Unspecified injury of shoulder and upper arm, unspecified arm, initial encounter; Translations: [Unspecified injury of shoulder and upper arm, unspecified arm, initial encounter] Onset: 10-13-2023 Episodic Residual codes; unclassified (1 source) Illness, unspecified; Translations: [Illness, unspecified] Onset: 10-19-2023 Episodic Unclassified (2 sources) Patient encounter status; Translations: [Encounter for immunization] Unclassified (2 sources) Onset: 11-07-2024 Resolved: 12-08-2024 11-07-2024 NEGATED: Highlighted row has not occurred!Residual codes; unclassified (7 sources) Disease Episodic Results Test Name Value Interpretation Reference Range Facility CBC (H/H, RBC, INDICES, WBC, PLT)on 12-09-2024 Erythrocyte distribution width (RBC) [Ratio] 12.8 % Normal 11.0-15.0 [facility] Comment on above: Performed By: #### [id number], 45208, 43448, 1520, 1759 #### [place] [address] Plumbing Technician: Surya Courtney MD Hematocrit (Bld) [Volume fraction] 39.9 % Normal 38.5-50.0 [facility] Comment on above: Performed By: #### 36248, 77514, 67995, 7600, 1759 #### [facility] [address] [address] Plumbing Technician: Surya Courtney MD Hemoglobin (Bld) [Mass/Vol] 13.4 g/dL Normal 13.2-17.1 [facility] Comment on above: Performed By: #### 32012, 71519, 41416, 7600, 175 #### [facility] [place] [address] Plumbing Technician: Surya Courtney MD MCH (RBC) [Entitic mass] 33.7 pg High 27.0-33.0 [facility] Comment on above: Performed By: #### 61300, 67061, 21968, 7600, 175 #### [facility] [place] [address] Plumbing Technician: Surya Courtney MD MCHC (RBC) [Mass/Vol] 33.6 g/dL Normal 32.0-36.0 [facility] Comment on above: Result Comment: For adults, a slight dec rease in the calculated MCHC value (in the range of 30 to 32 g/dL) is most likely not clinically significant; however, it should be interpreted with caution in correlation with other red cell parameters and the patient's clinical condition. Performed By: #### 9 2665, 32399, 93640, 7600, 175 #### [facility] [place] [address] Plumbing Technician: Surya Courtney MD MCV (RBC) [Entitic vol] 100.3 fL High 80.0-100.0 [facility] Comment on above: Performed By: #### 57289, 22022, 22102, 7600, 175 #### [facility] [place] [address] Plumbing Technician: Surya Courtney MD Platelet mean volume (Bld) [Entitic vol] 9.8 fL Normal 7.5-12.5 [facility] Comment on above: Performed By: #### 29384, 46101, 78903, 7600, 1759 #### [facility] [place] [address] Plumbing Technician: Surya Courtney MD Platelets (Bld) [#/Vol] 303 10*3/uL Normal 140-400 [facility] Comment on above: Performed By: #### 30483, 77236, 61168, 7600, 1759 #### [facility] of [address], [address] [place] [address] Plumbing Technician: Surya Courtney MD RBC (Bld) [#/Vol] 3.98 10*6/uL Low 4.20-5.80 [facility] Comment on above: Performed By: #### 16716, 01720, 27378, 7600, 1759 #### [facility] of [address], [address] [place] [address] Plumbing Technician: Surya Courtney MD WBC (Bld) [#/Vol] 7.0 10*3/uL Normal 3.8-10.8 [facility] Comment on above: Performed By: #### 77853, 65437, 80848, 7600, 1759 #### [facility] of [address], [address] [place] [address] Plumbing Technician: Surya Courtney MD COMPREHENSIVE METABOLIC PANE L W/ANION GAPon 12-09-2024 Albumin [Mass/Vol] 4.5 g/dL Normal 3.6-5.1 [facility] Comment on above: Performed By: #### 94200, 88899, 89951, 7600, 1759 #### [facility] of [address], [address] [place] [address] Plumbing Technician: Surya Courtney MD ALP [Catalytic activity/Vol] 68 U/L Normal 35-144 [facility] Comment on above: Performed By: #### 25547, 97050, 87712, 7600, 1759 #### [facility] of [place] [address] Plumbing Technician: Surya Courtney MD ALT [Catalytic activity/Vol] 19 U/L Normal 9-46 [facility] Comment on above: Performed By: #### 58113, 01395, 64606, 7600, 1759 #### [facility] of [address], [address] [place] [address] Plumbing Technician: Surya Courtney MD AST [Catalytic activity/Vol] 26 U/L Normal 10-35 [facility] Comment on above: Performed By: #### 03232, 04548, 65845, 7600, 1759 #### [facility] [place] [address] Plumbing Technician: Surya Courtney MD Bilirubin [Mass/Vol] 0.4 mg/dL Normal 0.2-1.2 [facility] Comment on above: Performed By: #### 52478, 37398, 94364, 7600, 1759 #### [facility] [place] [address] Plumbing Technician: Surya Courtney MD Calcium [Mass/Vol] 8.9 mg/dL Normal 8.6-10.3 [facility] Comment on above: Performed By: #### 79594, 05755, 62248, 7600, 175 #### [facility] of [place] [address] Plumbing Technician: Surya Courtney MD Chloride [Moles/Vol] 99 mmol/L Normal 98-110 [facility] Comment on above: Performed By: #### 86542, 20623, 26238, 7600, 1759 #### [facility] [place] [address] Plumbing Technician: Surya Courtney MD CO2 [Moles/Vol] 25 mmol/L Normal 20-32 [facility] Comment on above: Performed By: #### 05750, 48584, 30098, 7600, 1759 #### [facility] of [place] [address] Plumbing Technician: Surya Courtney MD Creatinine [Mass/Vol] 0.78 mg/dL Normal 0.70-1.30 [facility] Comment on above: Performed By: #### 23842, 22376, 33255, 7600, 1759 #### [facility] of [place] [address] Plumbing Technician: Surya Courtney MD ELECTROLYTE BALANCE 10 mmol/L (calc) Normal 7-17 [facility] Comment on above: Performed By: #### 61091, 06598, 24557, 7600, 1759 #### [facility] [place] [address] Plumbing Technician: Surya Courtney MD GFR/1.73 sq M.predicted among non-blacks MDRD (S/P/Bld) [Vol rate/Area] 104 mL/min/{1.73_m2} Normal > OR = 60 [facility] Comment on above: Performed By: #### 73388, 24182, 61622, 7600, 1759 #### [facility] [place] [address] Plumbing Technician: Surya Courtney MD Glucose [Mass/Vol] 92 mg/dL Normal 65-99 [facility] Comment on above: Result Comment: Fasting reference interval Performed By: #### 9 2665, 19245, 49861, 7600, 1759 #### [facility] [place] [address] Plumbing Technician: Surya Courtney MD Potassium [Moles/Vol] 4.0 mmol/L Normal 3.5-5.3 [facility] Comment on above: Performed By: #### 03485, 89268, 76388, 7600, 1759 #### [facility] [place] [address] Plumbing Technician: Surya Courtney MD Protein [Mass/Vol] 7.1 g/dL Normal 6.1-8.1 [facility] Comment on above: Performed By: #### 93550, 59402, 69501, 7600, 1759 #### [facility] [place] [address] Plumbing Technician: Surya Courtney MD Sodium [Moles/Vol] 134 mmol/L Low 135-146 [facility] Comment on above: Performed By: #### 40097, 22615, 71244, 7600, 1759 #### [facility] [address], [address] [place] [address] Plumbing Technician: Surya Courtney MD Urea nitrogen [Mass/Vol] 12 mg/dL Normal 7-25 [facility] Comment on above: Performed By: #### 99509, 39673, 28801, 7600, 1759 #### [facility] [address], [address] [place] [address] Plumbing Technician: Surya Courtney MD LIPID PANEL, [facility] 11-25 Cholesterol [Mass/Vol] 143 mg/dL Normal <200 [facility] Comment on above: Order Comment: [facility]. Performed By: #### 9 2665, 83377, 62664, 7600, 1759 #### [facility] [address], [address] [place] [address] Plumbing Technician: Surya Courtney MD Cholesterol in HDL [Mass/Vol] 54 mg/dL Normal > OR = 40 [facility] Comment on above: Order Comment: [facility] TO RETURN. Performed By: #### 9 2665, 51826, 20196, 7600, 1759 #### [facility] [address], [address] [place] [address] Plumbing Technician: Surya Courtney MD Cholesterol in LDL [Mass/Vol] 61 mg/dL Normal [facility] Comment on above: Order Comment: [facility] TO RETURN. Result Comment: Refe rence range: <100 Desirable range <100 mg/dL for primary prevention; <70 mg/dL for patients with CHD or diabetic patients with > or = 2 CHD risk factors. LDL-C is now calculated using the Sherron calculation, which is a validated novel method providing better accuracy than the Friedewald equation in the estimation of LDL-C. Mo COFFMAN et al. BILLY. 2013;310(19): 7069-0446 (http://education.Neventum/faq/CHT307) Performed By: #### 9 2665, 26626, 16207, 7600, 1759 #### [facility] [address], [address] [place] [address] Plumbing Technician: Surya Courtney MD Cholesterol.tot al/Cholesterol in HDL [Mass ratio] 2.6 {ratio} Normal <5.0 [facility] Comment on above: Order Comment: COLLECTION KIT GIVEN TO [facility]. PATIENT ADVISED TO RETURN. Performed By: #### 9 2665, 73505, 23494, 7600, 1759 #### [facility] [address], [address] [place] [address] Plumbing Technician: Surya Courtney MD NON HDL CHOLESTEROL 89 mg/dL (calc) Normal <130 [facility] Comment on above: Order Comment: COLLECTION KIT GIVEN TO [facility]. PATIENT ADVISED TO RETURN. Result Comment: For patients with diabetes plus 1 major ASCVD risk factor, treating to a non-HDL-C goal of <100 mg/dL (LDL-C of <70 mg/dL) is considered a therapeutic option. Performed By: #### 9 2665, 35711, 89216, 7600, 1759 #### [facility] [address], [address] [place] [address] Plumbing Technician: Surya Courtney MD Triglyceride [Mass/Vol] 228 mg/dL High <150 [facility] Comment on above: Order Comment: COLLECTION KIT GIVEN TO [facility]. PATIENT ADVISED TO RETURN. Result Comment: If a non-fasting specimen was collected, consider repeat triglyceride testing on a fasting specimen if clinically indicated. Shelli et al. J. of Clin. Lipidol. 2015;9:129-169. Performed By: #### 9 2665, 92281, 66322, 7600, 1759 #### [facility] [address], [address] [place] [address] Plumbing Technician: Surya Courtney MD PSA, TOTAL, MONITORINGon PSA, TOTAL, MONITORING 0.23 ng/mL Normal < OR = 4.00 [facility] Comment on above: Result Comment: The total PSA value from this assay system is standardized against the WHO standard. The test result will be approximately 20% lower when compared to the equimolar-standardized total PSA (Maria Luisa Danielle). Comparison of serial PSA results should be interpreted with this fact in mind. This test was performed using the Siemens chemiluminescent method. Values obtained from different assay methods cannot be used interchangeably. PSA levels, regardless of value, should not be interpreted as absolute evidence of the presence or absence of disease. Performed By: #### 9 2665, 83821, 54368, 7600, 1759 #### [facility] [address], [address] [place] [address] Plumbing Technician: Surya Courtney MD TSH W/REFLEX TO FT4on 2024 TSH W/REFLEX TO FT4 0.60 mIU/L Normal 0.40-4.50 [facility] Comment on above: Performed By: #### 10467, 29475, 14569, 7600, 1759 #### [facility] [address], [address] [place] [address] Plumbing Technician: Surya Courtney MD Emergency Department Summary on 07-03-2024 Emergency Department Summary [facility] Medical Records Department [address] [place] [address] Emergency Department Summary 07/03/24 MR#: [id number] Acct: [id number] Name: SABI DENIS Rep #: [id number] : 1965 59 From: Livan Hall MD PCP: Care Physician,No Primary Status:PRE ER Location: ED HPI History of Present Illness Chief Complaint: Dental Detail of Chief Complaint: Left lower molar. Informant: patient Onset/Context/Timing Onset: Days Context: Sudden Onset Timing: Continuous Quality: Pain Location: Left lower molar Current Severity: Mild Maximum Severity: Moderate Worsened by: Nothing Relieved by: - (Nothing) Associated Symptoms Assocated Symptom - Dental: jaw swelling; Negative for fever, face swelling, cold sensitivity or hot sensitivity Narrative Narrative: Patient 59-year-old male. Who presents Rizal dental pain. Denies any sensitivity to hot or cold liquids. Concerned he has an abscess. He does not have a dentist in the area. He moved from [place]. He does have history of hypertension. He denies history medic fever, heart murmur, SBE or IV drug use. He denies difficulty opening closes mouth. [place] difficulty swallowing. No change in voice. He has not noted any skin lesions. Prior similar symptoms: Yes Recent Illness/Hospitalization: No [facility] Medical History Closed fracture of right proximal humerus History of pneumothorax HTN (hypertension) Home Medications ???Medication ???Instructions ???Recorded ???Last Taken ???Type carvedilol 3.125 mg tablet 3.125 mg PO BID 02/01/23 Unknown History lisinopril 5 mg tablet 5 mg PO DAILY 02/01/23 Unknown History hydrocodone-acetaminophen 5-325mg 1 tab PO Q6H PRN PRN Pain 3 days 10/14/23 Unknown Rx 5mg-325mg #12 TABLETS hydrocodone-acetaminophen 5-325mg 1 tab PO Q6H PRN PRN Pain 3 days 07/03/24 Unknown Rx 5mg-325mg #10 TABLETS naproxen 500 mg tablet 500 mg PO BID #14 tabs 07/03/24 Unknown Rx penicillin V potassium 500 mg 500 mg PO 4X/DAY #28 tabs 07/03/24 Unknown Rx tablet Allergy/AdvReac Type Severity Reaction Status Date / Time No Known Allergies Allergy Verified 07/03/24 16:33 Social History Smoking Status: Current every day smoker tobacco type: cigarettes alcohol intake: current alcohol intake frequency: a few times a month [facility] ED Constitutional Constitutional ED: Denies chills, fever(s), subjective or sweats ENT ENT ED: Reports other Details: Denies trismus. ; Denies ear pain, rhinorrhea or sore throat Cardiovascular Cardiovascular: Denies chest pain, palpitations or racing heartbeat Respiratory/Chest Respiratory/Chest: Denies cough or dyspnea Gastrointestinal Gastrointestinal: Denies nausea or vomiting Hematologic/Lymphatic Hematologic/Lymphatic: Denies easy bleeding or easy bruising EXAM Physical Exam Const Vital Signs: 07/03/24 16:31 07/03/24 19:18 Temperature 97.8 F Temperature Source Temporal Pulse Rate 99 Respiratory Rate 18 18 Blood Pressure 149/90 H 160/101 H Blood Pressure Mean 109 120 Pulse Ox 78 97 Oxygen Delivery Method Room Air Room Air Positive well nourished and well developed General Appearance ED: well developed and NAD HEENT HEENT Narrative: There is no trismus. There is no swelling of the floor of the mouth. There is swelling near the angle of the mandible on the left side. Mouth ED: Yes lips normal, Yes tongue normal, Yes salivary gland normal, No mouth trauma, Yes oral and palatal mucosa abnormal and No salivary gland abnormal Mouth: lips normal, tongue normal, salivary gland normal, No mouth trauma, oral and palatal mucosa abnormal and No salivary gland abnormal Teeth and Gingiva: abnormal tooth and associated gingiva, caries, gingiva abnormal, poor dentition and teeth discoloration Throat: posterior oropharynx normal Eyes PERRL and EOMs intact bilaterally General Eye ED: Negative for pale conjunctiva Neck supple and no JVD General: normal visual inspection, tenderness and submandibular swelling; Negative for anterior neck swelling or other Resp normal respiratory effort, no retractions and clear to auscultation bilaterally Cardio regular rate, regular rhythm, S1 normal heart sound, S2 normal heart sound and no murmurs Extremity normal to inspection and no joint enlargement Neuro oriented x3 and CN's II-XII intact bilaterally Sensorium / Orientation: alert Psych mental status grossly normal Skin no rashes or lesions noted and no wounds MDM MDM MDM Narrative Medical decision making narrative: I believe there is remanence of tooth #17 possibly 18 on the left. There is swelling of the gum. There is no fluctuance. There is no trismus. There is no concern fo (more content not included)... [facility] ) SABI DENIS ([id number]) 1965 M Date Time Provider Department 12/22/23 1:30 PM WHITNEY HOWARD [facility] During your visit today, we recorded the following information about you: Weight 72.6 kg Whitney Howard MD 12/22/2023 4:39 PM Signed Mr. Alicea is A 58-year-old RHD man who is seen in follow-up. On October 09 he sustained a right proximal humerus fracture which was fairly comminuted. He missed several appointments with me thereafter and I actually met him in early October. At that time a nonoperative plan was established. He has missed a few appointments since then and returns today noting that the aching pain, stiffness, and swelling in his shoulder have continued to improve. He states that it is still stiff he is not using a sling but he was concerned about doing heavy lifting and other work with it. 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 He also reports that at the time of this shoulder injury he fell and landed hard on his left hand. Since that time his left ring finger has been very swollen and stiff. 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 It is mildly aching. He states that he has had some broken fingers in the past all of which have improved and out left him with notable deficits. He would like to have his finger evaluated today as well. PMH, meds, All, FH ,SH, ROS all reviewed and no changes noted PE: WD,WN WM NAD, A/Ox3 R shoulder: mild stiffness, NTTP, decreased tone cw disuse D CMS I FF: active 60, passive 100 Abd: active 60, passive 100 ER 30 L hand: mod chronic STS, PIP, d CMS I IP flexion contracture, max flexion to 60 AP/lat/obl L hand: malunion middle phalanx AP/Neer/Sc Y R shoulder comp w/ Oct 6: no change in alignment, fxs healing A/P: 2.5 mo s/p R pr hum fx. Healing PT referral: A/P ROM, progress to strengthening. 10-15 lb lifting restriction for 3-4wk then advance WBAT Tylenol prn Vit D, Ca, MVI 2.5mo s/p L ring finger injury now with malunion. Referral to hand surgery. PT/OT RTC 2mo, check R shoulder XR Referring Provider: KATY TOVAR [[id number]] Allergies As of Date: 12/22/2023 Noted Allergy Reaction ASPIRIN 04/18/2019 10 - Anaphylaxis Date Reviewed: 12/22/2023 Reviewed by: Whitney Howard MD - Fully Assessed Reason for Visit: Established Patient [175] Follow Up [171] Primary Visit Diagnosis:Closed fracture of proximal end of right humerus, unspecified fracture morphology, initial encounter [S42.201A] Other Visit Diagnosis:Stiffness of finger joint, left [M25.642] Order(s):XR SHOULDER GENERAL 3V OR MORE AP/TRUE AP/OTHER RIGHT [6921721] Order #: [id number] FUTURE XR HAND GENERAL 3V PA/LAT/OBL LEFT [[id number]] Order #: [id number] FUTURE XR DIGIT GENERAL 3V FRONTAL/LAT/OBL LEFT [[id number]] Order #: [id number] FUTURE CONSULT PANEL TO ORTHOPAEDICS [381315] Order #: [id number]: 1 FUTURE Prescriptions as of 12/22/2023 - acetaminophen (TYLENOL EXTRA STRENGTH) 500 mg tablet Take 500 mg by mouth every 8 hours as needed for pain. - ibuprofen (MOTRIN) 800 mg tablet Take 1 tablet by mouth every 8 hours as needed (for pain.). - hydroCHLOROthiazide 25 mg tablet Take 1 tablet by mouth once daily. - HYDROcodone-acetaminophen (NORCO) 5-325 mg per tablet - lisinopril (ZESTRIL) 5 mg tablet Take by mouth. - albuterol HFA (PROVENTIL HFA, VENTOLIN HFA) 90 mcg/actuation inhaler Inhale 2 Puffs as instructed every 6 hours as needed. - albuterol HFA (PROVENTIL HFA, VENTOLIN HFA) 90 mcg/actuation inhaler Inhale 2 Puffs as instructed every 4 hours as needed. - lisinopril-hydroCHLOROthiazide (PRINZIDE,ZESTORETIC) 10-12.5 mg per tablet Take 1 tablet by mouth once daily. - carvedilol (COREG) 6.25 mg tablet Take by mouth q 12 HR. Problem List As Of Date 12/22/2023 Noted Resolved Alcoholism (HCC) [F10.20] 10/28/2023 Depressive disorder [F32.A] 10/28/2023 Erectile dysfunction [N52.9] 10/28/2023 History of chronic obstructive airway disease [*10/28/2023 Nicotine dependence [F17.200] 10/28/2023 Vitamin D deficiency [E55.9] 01/16/2013 Level of Service: OFFICE/OUTPATIENT ESTABLISHED HIGH MDM 40 MIN [50185] Encounter Status:Closed by WHITNEY HOWARD on 12/22/23 [facility] XR HAND 3V PA/LAT/OBL LTon 0 12-22-2023 XR HAND 3V PA/LAT/OBL LT * * *Final Report* * * DATE OF EXAM: Dec 22 2023 3:04PM FVX 5345 - XR HAND 3V PA/LAT/OBL LT / PROCEDURE REASON: Stiffness of finger joint, left * * * * Physician Interpretation * * * * EXAMINATION / TECHNIQUE: XR HAND 3V PA/LAT/OBL LT PATIENT/TECHNOLOGIST PROVIDED HISTORY: pt sts pain and swelling in left 4th digit CLINICAL INFORMATION ( PROVIDED BY ORDERING CLINICIAN) : Stiffness of finger joint, left COMPARISON: None RESULT: No acute fracture or dislocation. Severe ring finger PIP joint space narrowing with overlying soft tissue swelling. Osseous remodeling and subchondral cystic changes along the middle phalangeal base, which is slightly dorsally positioned with respect to the proximal phalangeal head. There is a faint lucency along the volar aspect of the middle phalangeal base with overlying callus, best seen on lateral view. Otherwise unremarkable examination. IMPRESSION: Healing intra-articular fracture of the ring finger middle phalangeal base with severe posttraumatic osteoarthritis, as detailed. Slip Cover Maker: PSCB Transcribe Date/Time: Dec 27 2023 1:52P Dictated by : MEL SCOTT MD This examination was interpreted and the report reviewed and electronically signed by: MEL SCOTT MD on Dec 27 2023 1:57PM EST [id number] [facility] XR SHLDR >/=3V AP/LAI AP/OTH R RTon 12-22-2023 XR SHLDR >/=3V AP/LAI AP/OTHR RT * * *Final Report* * * DATE OF EXAM: Dec 22 2023 2:07PM FVX 5253 - XR SHLDR >/=3V AP/LAI AP/OTHR RT / PROCEDURE REASON: Closed fracture of proximal end of right humerus, unspecified fracture morpholog * * * * Physician Interpretation * * * * XR SHLDR >/=3V AP/LAI AP/OTHR RT PROVIDED HISTORY: Closed fracture of proximal end of right humerus, unspecified fracture morphology, initial encounter COMPARISON: 10/28/2023 TECHNIQUE: 3 views RESULT: Comminuted proximal shaft and neck fracture of the right humerus is again seen with increased sclerosis compatible with healing change. Fracture lines remain apparent. Glenohumeral alignment is intact with moderate degenerative narrowing at the AC joint IMPRESSION: Healing fracture at the right humeral neck Slip Cover Maker: [facility]ENTER[facility]umn Transcribe Date/Time: Dec 27 2023 9:43A Dictated by : MELISSA GUTIERREZ MD This examination was interpreted and the report reviewed and electronically signed by: MELISSA GUTIERREZ MD on Dec 27 2023 9:44AM EST [id number] Normal [facility] CBC panel Auto (Bld)on 12-06 Erythrocyte distribution width (RBC) [Ratio] 12.8 % Normal 11.5-14.5 [facility] Comment on above: Performed By: #### 44975-0 #### ANNA MARIE Patricia ([id number]) [facility] ([facility]) [address] [place] [address] 15942 Hematocrit (Bld) [Volume fraction] 39.0 % Low 41.0-52.0 [facility] Comment on above: Performed By: #### 12807-6 #### ANNA MARIE Patricia ([id number]) [facility] ([facility]) [address] [place] [address] 88805 Hemoglobin (Bld) [Mass/Vol] 13.6 g/dL Normal 13.5-17.5 [facility] Comment on above: Performed By: #### 30045-3 #### ANNA MARIE aPtricia ([id number]) [facility] ([facility]) [address] [place] [address] 08035 MCH (RBC) [Entitic mass] 32.2 pg Normal 26.0-34.0 [facility] Comment on above: Performed By: #### 13865-7 #### ANNA MARIE Patricia ([id number]) [facility] ([facility]) [id number] [place] [address] 53310 MCHC (RBC) [Mass/Vol] 34.9 g/dL Normal 32.0-36.0 [facility] Comment on above: Performed By: #### 66397-4 #### ANNA MARIE Patricia ([id number]) [facility] ([facility]) [address] [place] [address] 27406 MCV (RBC) [Entitic vol] 92 fL Normal 80-100 [facility] Comment on above: Performed By: #### 51184-8 #### ANNA MARIE Patricia ([id number]) [facility] ([facility]) [address] [place] [address] 66897 Nucleated RBC/100 WBC (Bld) [Ratio] 0.0 /100 WBCs Normal 0.0-0.0 [facility] Comment on above: Performed By: #### 89881-2 #### ANNA MARIE Patricia ([id number]) [facility] ([facility]) [address] [place] [address] 18041 Platelets (Bld) [#/Vol] 444 x10*3/uL Normal 150-450 [facility] Comment on above: Performed By: #### 24887-1 #### ANNA MARIE Patricia ([id number]) [facility] ([facility]) [address] [place] [address] 17046 RBC (Bld) [#/Vol] 4.22 x10*6/uL Low 4.50-5.90 [facility] Comment on above: Performed By: #### 73896-0 #### ANNA MARIE Patricia ([id number]) [facility] ([facility]) [address] [place] [address] 33278 WBC (Bld) [#/Vol] 10.7 x10*3/uL Normal 4.4-11.3 [facility] Comment on above: Performed By: #### 22635-5 #### ANNA MARIE Patricia ([id number]) [facility] ([facility]) [address] [place] [address] Comprehensive metabolic 2000 panelon 12-07-2023 Albumin BCP dye [Mass/Vol] 4.8 g/dL Normal 3.4-5.0 [facility] Comment on above: Performed By: #### 00578-1 #### ANNA MARIE Patricia ([id number]) [facility] ([facility]) [address] [place] [address] ALP [Catalytic activity/Vol] 80 U/L Normal 33-120 [facility] Comment on above: Performed By: #### 82027-2 #### ANNA MARIE Patricia ([id number]) [facility] ([facility]) [address] [place] [address] 90776 ALT With P-5'-P [Catalytic activity/Vol] 12 U/L Normal 10-52 [facility] Comment on above: Result Comment: Patients treated with Hickey lfasalazine may generate falsely decreased results for ALT. Performed By: #### 2 4323-8 #### ANNA MARIE Patricia ([id number]) [facility] ([facility]) [address] [place] [address] 32064 Anion gap [Moles/Vol] 17 mmol/L Normal 10-20 [facility] Comment on above: Performed By: #### 29814-0 #### ANNA MARIE Patricia ([id number]) [facility] ([facility]) [address] [place] [address] 94411 AST With P-5'-P [Catalytic activity/Vol] 16 U/L Normal 9-39 [facility] Comment on above: Performed By: #### 84457-0 #### ANNA MARIE YEN L ([id number]) [facility] ([facility]) [address] [place] [address] 67951 Bilirubin [Mass/Vol] 0.9 mg/dL Normal 0.0-1.2 [facility] Comment on above: Performed By: #### 51446-6 #### ANNA MARIE YEN L ([id number]) [facility] ([facility]) [address] [place] [address] 35051 Calcium [Mass/Vol] 9.7 mg/dL Normal 8.6-10.6 [facility] Comment on above: Performed By: #### 20869-6 #### ANNA MARIE Patricia ([id number]) [facility] ([facility]) [address] [place] [address] Chloride [Moles/Vol] 93 mmol/L Low 98-107 [facility] Comment on above: Performed By: #### 09113-0 #### ANNA MARIE Patricia ([id number]) [facility] ([facility]) [address] [place] [address] CO2 [Moles/Vol] 29 mmol/L Normal 21-32 [facility] Comment on above: Performed By: #### 53365-5 #### ANNA MARIE Patricia ([id number]) [facility] ([facility]) [address] [place] [address] Creatinine [Mass/Vol] 0.89 mg/dL Normal 0.50-1.30 [facility] Comment on above: Performed By: #### 60769-0 #### ANNA MARIE Patricia ([id number]) [facility] ([facility]) [address] [place] [address] 92476 GFR/1.73 sq M.predicted MDRD (S/P/Bld) [Vol rate/Area] mL/min/{1.73_m2} Normal >60 [facility] Comment on above: Result Comment: Calculations of estimate d GFR are performed using the 2020 CKD-EPI Study Refit equation without the race variable for the IDMS-Traceable creatinine methods. https://jasn.asnjournals.org/content//ASN.5301097256 Performed By: #### 2 4323-8 #### ANNA MARIE Patricia ([id number]) [facility] ([facility]) [address] [place] [address] Glucose [Mass/Vol] 106 mg/dL High 74-99 [facility] Comment on above: Performed By: #### 99566-1 #### ANNA MARIE YEN L ([id number]) [facility] ([facility]) [address] [place] [address] 25495 Potassium [Moles/Vol] 4.8 mmol/L Normal 3.5-5.3 [facility] Comment on above: Performed By: #### 96091-8 #### ANNA MARIE SCHMOTZER L ([id number]) [facility] ([facility]) [address] [place] [address] 99268 Protein [Mass/Vol] 7.9 g/dL Normal 6.4-8.2 [facility] Comment on above: Performed By: #### 04410-0 #### ANNA MARIE EDWARDSMOTZER L ([id number]) [facility] ([facility]) [address] [place] [address] 78123 Sodium [Moles/Vol] 134 mmol/L Low 136-145 [facility] Comment on above: Performed By: #### 41635-2 #### ANNA MARIE EDWARDSMOTZER L ([id number]) [facility] ([facility]) [address] [place] [address] 93957 Urea nitrogen [Mass/Vol] 17 mg/dL Normal 6-23 [facility] Comment on above: Performed By: #### 15743-2 #### ANNA MARIE LITZER L ([id number]) [facility] ([facility]) [address] [place] [address] 50005 Lipid 1996 panelon 4 Cholesterol [Mass/Vol] 145 mg/dL Normal 0-199 [facility] Comment on above: Result Comment: Age Desirable Borderline High High 0-19 Y 0 - 169 170 - 199 >/= 200 20-24 Y 0 - 189 190 - 224 >/= 225 >24 Y 0 - 199 200 - 239 >/= 240 All ranges are based on fasting samples. Specific therapeutic targets will vary based on patient-specific cardiac risk. Pediatric guidelines reference:Pediatrics 2011, 128(S5).Adult guidelines reference: NCEP ATPIII Guidelines,BILLY 2001, 258:2486-97 Venipuncture immediately after or during the administration of Metamizole may lead to falsely low results. Testing should be performed immediately prior to Metamizole dosing. Performed By: #### 2 4331-1 #### ANNA MARIE Patricia ([id number]) [facility] ([facility]) [address] [place] [address] 96349 Cholesterol in HDL [Mass/Vol] 52.5 mg/dL Normal [facility] Comment on above: Result Comment: Age Very Low Low Normal High 0-19 Y < 35 < 40 40-45 ---- 20-24 Y ---- < 40 >45 ---- >24 Y ---- < 40 40-60 >60 Performed By: #### 2 4331-1 #### ANNA MARIE Patricia ([id number]) [facility] ([facility]) [address] [place] [address] 53787 Cholesterol in LDL [Mass/Vol] 68 mg/dL Normal <=99 [facility] Comment on above: Result Comment: Near Borderline AGE Desirable Optimal High High Very High 0-19 Y 0 - 109 --- 110-129 >/= 130 ---- 20-24 Y 0 - 119 --- 120-159 >/= 160 ---- >24 Y 0 - 99 100-129 130-159 160-189 >/=190 Performed By: #### 2 4331-1 #### ANNA MARIE Patricia ([id number]) [facility] ([facility]) [address] [place] [address] 75156 Cholesterol in VLDL [Mass/Vol] 24 mg/dL Normal 0-40 [facility] Comment on above: Performed By: #### 97846-5 #### ANNA MARIE Patricia ([id number]) [facility] ([facility]) [address] [place] [address] 68838 CHOLESTEROL/HDL RATIO 2.8 Normal [facility] Comment on above: Result Comment: Ref Values Desirable < 3.4 High Risk > 5.0 Performed By: #### 2 4331-1 #### ANNA MARIE Patricia ([id number]) [facility] ([facility]) [address] [place] [address] 85424 NON HDL CHOLESTEROL 93 mg/dL Normal 0-149 [facility] Comment on above: Result Comment: Age Desirable Borderline High High Very High 0-19 Y 0 - 119 120 - 144 >/= 145 >/= 160 20-24 Y 0 - 149 150 - 189 >/= 190 ---- >24 Y 30 mg/dL above LDL Cholesterol goal Performed By: #### 2 4331-1 #### ANNA MARIE Patricia ([id number]) [facility] ([facility]) [address] [place] [address] 13978 Triglyceride [Mass/Vol] 121 mg/dL Normal 0-149 [facility] Comment on above: Result Comment: Age Desirable Borderline High High Very High 0 D-90 D 19 - 174 ---- ---- ---- 91 D- 9 Y 0 - 74 75 - 99 >/= 100 ---- 10-19 Y 0 - 89 90 - 129 >/= 130 ---- 20-24 Y 0 - 114 115 - 149 >/= 150 ---- >24 Y 0 - 149 150 - 199 200- 499 >/= 500 Venipuncture immediately after or during the administration of Metamizole may lead to falsely low results. Testing should be performed immediately prior to Metamizole dosing. Performed By: #### 2 4331-1 #### ANNA MARIE Patricia ([id number]) [facility] ([facility]) [address] [place], [place] [id number] Prostate specific Agon 12-06 Prostate specific Ag [Mass/Vol] 0.19 ng/mL Normal <=4.00 [facility] Comment on above: Order Comment: The FDA requires that the method used for PSA assay be reported to the physician. Values obtained with different assay methods must not be used interchangeably. This test was performed at [facility] using [employer] PSA method, which is a sandwich immunoassay using chemiluminescence for quantitation. The assay is approved for measurement of prostate-specific antigen (PSA) in serum and may be used in conjunction with a digital rectal examination in men 50 years and older as an aid in the detection of prostate cancer. 5 Alpha-reductase inhibitors (e.g., Proscar, Finasteride, Avodart, Dutasteride, and Arelis) for the treatment of BPH have been shown to lower PSA levels by an average of 50% after 6 months of treatment. Performed By: #### 2 857-1 #### ANNA MARIE Patricia ([id number]) [facility] ([facility]) [address] [place], [place] [id number] TSH WITH REFLEX TO FREE T4 I F ABNORMALon 12-07-2023 TSH Qn 0.57 m[IU]/L Normal 0.44-3.98 [facility] Comment on above: Order Comment: TSH testing is performed using different testing methodology at [facility] than at other [facility]. Direct result comparisons should only be made within the same method. Performed By: #### T HYDS #### ANNA MARIE Patricia ([id number]) [facility] ([facility]) [address] [place], [place] [id number] CNOVon 10-28-2023 CNOV Office Visit (ORAVON ) SABI DENIS ([id number]) 1965 M Date Time Provider Department 10/28/23 2:00 PM WHITNEY HOWARD During your visit today, we recorded the following information about you: Whitney Howard MD 10/28/2023 2:47 PM Signed Chief Complaint: Patient presents with: Fracture: Right shoulder fracture. Date of injury 10/09/23 HPI: Patient is 58 year old Right hand dominant male here for evaluation of R shoulder injury sustained on 10/09/23. ?He fell on ice landing on R shoulder. Pain was sudden on onset and is: constant improving moderate radiating to hand sharp Worse with: virtually all activity Better with: sitting and medication, taking tylenol. Difficult sleeping, has been sitting up to sleep Supporting Subjective Information Below: There is no height or weight on file to calculate BMI. Past Medical History: PAST MEDICAL HISTORY Diagnosis Date Hypertension Pneumothorax COPD Mult prior fxs, recently R d radius January 2023 Depression EtOH abuse Tobacco abuse Past Surgical History: None Family History: No family history on file. 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 hydroCHLOROthiazide 25 mg tablet Take 1 tablet by mouth once daily. lisinopril (ZESTRIL) 5 mg tablet Take by mouth. albuterol HFA (PROVENTIL HFA, VENTOLIN HFA) 90 mcg/actuation inhaler Inhale 2 Puffs as instructed every 6 hours as needed. albuterol HFA (PROVENTIL HFA, VENTOLIN HFA) 90 mcg/actuation inhaler Inhale 2 Puffs as instructed every 4 hours as needed. lisinopril-hydroCHLOROthiazide (PRINZIDE,ZESTORETIC) 10-12.5 mg per tablet Take 1 tablet by mouth once daily. carvedilol (COREG) 6.25 mg tablet Take by mouth q 12 HR. ibuprofen (MOTRIN) 800 mg tablet Take 1 tablet by mouth every 8 hours as needed (for pain.). HYDROcodone-acetaminophen (NORCO) 5-325 mg per tablet No current facility-administered medications for this visit. Allergies: Aspirin but he takes ibuprofen without adverse effects REVIEW OF SYSTEMS: CONSTITUTIONAL: Denies fever and weight loss. EYES: Denies acute vision changes. ENT: Denies hearing changes or difficulty swallowing. CARDIAC: No history of angina and CHF. RESPIRATORY: Denies dyspnea cough or wheeze. GASTROINTESTINAL: Denies abdominal pain, nausea, vomiting MUSCULOSKELETAL: See HPI SKIN: Denies any recent rash or lesion. NEUROLOGICAL: Denies numbness or focal weakness. PSYCHIATRIC: Denies recent mood change. ENDOCRINE: Denies current diagnosis of diabetes. HEMATOLOGIC: Denies episodes of easy bleeding. REFERRING PHYSICIANS: ?was referred to me for consultation and further care by the following physician. This consultation note will be sent to the following physician by either mail or electronic medical record. ?Katy Tovra [address] [facility] [address] Physical Exam: General: No acute distress, alert and oriented x3, Awake and alert, and Nontoxic White Male WD/WN, plesaant HEENT: NCAT, anicteric, PERR, EOMI, nl nose, nl ears Neck: supple, NT smooth ROM, no STS Chest: nl excursion, NT CV: RRR, periph pulses palpable Abd: soft, NT/ND Pelvis: NT, nl alignment, no LLD GAIT: normal Good balance and coordination BUE: smooth NT AROM, nl tone, no instability, L shoulder, Bilat elbow, FA, wrist, hand Mod STS R shoulder-ecchymosis resolving and extending into upper arm and R chest wall No other focal pain in RUE LEFT/RIGHT LE: smooth NT AROM, nl tone, no instability, hip, knee, ankle/ft Right Skin: ?Swelling minimal with wrinkles present Vascular: Palpable radial pulse Neuro: ?Sensation intact axillary, median, ulnar and radial nerve distributions and Fires deltoid with 5/5 EPL. FPL, opponens, instrinsics, wrist extension Musculoskeletal: ?Tenderness to palpation over Shoulder I personally reviewed X-Ray: AP/lat/scap Y/ ax R shoulder: comminuted prox hum shaft fx extending to surgical neck Assessment and Plan: Patient is a 58 year old male w/ R comminuted prox hum fx. Tobacco and EtOH abuse pose risk factors for delayed union and malunion. Pt advised re deleterious effects of heavy EtOH and declined counseling for cessation or for nutrition. Closed (more content not included)... Normal [facility] XR SHLDR >/=3V AP/LAI AP/OTH R RTon 10-28-2023 XR SHLDR >/=3V AP/LAI AP/OTHR RT * * *Final Report* * * DATE OF EXAM: Oct 28 2023 1:27PM AFR 5253 - XR SHLDR >/=3V AP/LAI AP/OTHR RT / PROCEDURE REASON: Pain * * * * Physician Interpretation * * * * EXAMINATION: XR SHLDR >/=3V AP/LAI AP/OTHR RT HISTORY: FRACTURE ON 10/09 FOLLOW UP Pain . TECHNIQUE: XR SHLDR >/=3V AP/LAI AP/OTHR RT Laterality: RIGHT Number of different views (projections): 4 M: XB_1 COMPARISON: Chest radiograph 02/17/2021 RESULT: Comminuted proximal humeral metadiaphyseal fracture with suspected involvement of greater tuberosity. There is small amount of surrounding callus formation indicative of healing. There is an underlying chondroid lesion which is partially seen on 02/17/2021 chest x-ray suggestive of an enchondroma. Mild acromioclavicular degenerative changes glenohumeral joint space is maintained. Multiple remote healed right-sided rib fractures are noted. IMPRESSION: Healing comminuted fracture right proximal humerus extending through a chondroid lesion (likely enchondroma) Slip Cover Maker: RUDY Transcribe Date/Time: Oct 28 2023 2:43P Dictated by : CARLOS ÁLVAREZ MD This examination was interpreted and the report reviewed and electronically signed by: MALCOLM SPIVEY MD on Oct 28 2023 5:57PM EST [id number] Normal [facility] Orthopedic Visit Reporton Orthopedic Visit Report [facility] [address] [place] [address] OFFICE VISIT Date of Service: 10/18/23 MR#: [id number] Acct: [id number] Name: SABI DENIS Rep #: [id number] : 1965 Provider: Dr. Sony reyes MD Age/Sex: 58/M Location: [facility] Status: Signed Intake Vital Signs 10/14/23 10:23 10/14/23 10:44 Height 6 ft 6 ft Intake Visit Reasons: RIGHT SHOULDER Allergies No Known Allergies Allergy (Verified 10/14/23 10:26) [facility] Medical History (Updated 10/18/23 @ 09:59 by Sony Mendiola MD) Closed fracture of right proximal humerus History of pneumothorax HTN (hypertension) Social History Smoking Status: Current every day smoker tobacco type: cigarettes alcohol intake: current alcohol intake frequency: a few times a month HPI RIGHT SHOULDER Details: This documentation accurately reflects the service provided and the decisions made by me, Dr. Sony Mendiola MD 10/18/23 0958. Part of today???s visit was documented by [ ], acting as scribe. SABI DENIS is a 58 year old M here today for R proximal humerus fracture after a fall. Supplemental Info [facility] Imaging Services [address] [place] [address] Shoulder min 2 Views MR#: [id number] Acct: [id number] Name: SABI DENIS Rep #: [id number] : 1965 M 58 From: Tom Escalera MD PCP: Status: REG ER Study: Shoulder min 2 Views Date of Exam: 10/09/23 Exam# [id number] Ordering Dr: Isrrael Cali MD [id number] STUDY: X-RAY - RIGHT SHOULDER REASON FOR EXAM: Male, 58 years old. INJURY TECHNIQUE: 2 view(s) of the shoulder. COMPARISON: None. ___ FINDINGS: Normal glenohumeral articulation. Normal acromioclavicular joint. Normal acromion. Acute anteriorly displaced spiral fracture of the humeral neck and proximal shaft of the humerus. There is suggestive of a large lytic lesion with possible chondroid calcifications worrisome for a pathologic fracture possibly from an enchondroma or chondrosarcoma. Correlation with bone scan would be useful to evaluate for other bone lesions. The soft tissue structures are unremarkable. Multiple healed right rib fractures. Normal visualized pulmonary apex. ___ RAD/Shoulder min 2 Views IMPRESSION: Suspect acute pathologic fracture of the neck and proximal shaft of the humerus possibly from enchondroma, chondrosarcoma, or metastatic disease. Correlation with bone scan and MRI may be useful. Electronically Signed: Tom Escalera MD at 19:23 EST , Coding Level of Care Code Off vis,new,level 3 Diagnoses Closed fracture of right proximal humerus S42.201A Assessment and Plan Assessment and Plan (1) Closed fracture of right proximal humerus: Status: Acute Plan: 58 yr M with R pathological humerus fracture. This has a wide differential diagnosis including metastatic disease and chondrosarcoma as there is popcorn stippling and a large potentially lytic lesion. For now we will remain in the sling okay to take the sling off for gentle pendulum exercises and using the hand and wrist but no heavy lifting. The patient declined a work note. I printed out the patient's x-ray report as well gave the patient the name of an orthopedic oncologist with [facility]. I also sent Luiza with director of academic support message to our office in regards to orthopedic oncology stat referral the upper extremity the patient will need a further workup in terms of the MRI and ruling out metastatic disease. FORREST PRN with myself. 10/18/23 1025 Date ___ Sony Fermin Signature: Date ___ (if applicable) CC: Normal [facility] Emergency Department Summary on 10-14-2023 Emergency Department Summary [facility] Medical Records Department [address] [place] [address] Emergency Department Summary 10/14/23 MR#: [id number] Acct: [id number] Name: SABI DENIS MINNIE Rep #: [id number] : 1965 58 From: Iglesia Duggan DO PCP: Care Physician,No Primary Status:DEP ER Location: ED HPI History of Present Illness HPI Narrative: Patient presents with right shoulder pain that began after a fall 5 days ago. Patient was seen here at that time and was diagnosed with a proximal humerus fracture. Patient was placed in a sling and swath at that time. Patient states he has not followed up with orthopedics yet. Patient states his pain became worse today. Patient states he ran out of his pain medication. Patient denies any new injury or trauma. Patient denies any paresthesias or weakness. Chief Complaint: Upper Extremity Injury Informant: patient Onset/Context/Timing Onset: Days (5) Context: Sudden Onset Timing: Continuous Quality of Pain: Stabbing Location: Right shoulder Worsened by: Movement Relieved by: Rest Associated Symptoms Associated Symptoms: Negative for Parasthesia, Weakness or Loss of Funtion PFSH [facility] Medical History History of pneumothorax HTN (hypertension) Home Medications carvedilol 3.125 mg tablet 3.125 mg PO BID 02/01/23 [History Last Taken Unknown] lisinopril 5 mg tablet 5 mg PO DAILY 02/01/23 [History Last Taken Unknown] hydrocodone-acetaminophen 5-325mg 5mg-325mg 1 tab PO Q6H PRN PRN Pain 3 days #12 TABLETS 10/14/23 [Rx Last Taken Unknown] Allergy/AdvReac Type Severity Reaction Status Date / Time No Known Allergies Allergy Verified 10/14/23 10:26 Surgical History no surgical history no surgical history Social History Smoking Status: Current every day smoker tobacco type: cigarettes alcohol intake: current alcohol intake frequency: a few times a month ROS ROS ED Constitutional Constitutional ED: Denies chills or fever(s) Eyes Eyes: Denies blurry vision or change in vision ENT ENT ED: Denies rhinorrhea or sore throat Cardiovascular Cardiovascular: Denies chest pain or palpitations Respiratory/Chest Respiratory/Chest: Denies cough or dyspnea Gastrointestinal Gastrointestinal: Denies nausea or vomiting Genitourinary Genitourinary ED: Denies dysuria or hematuria Musculoskeletal Musculoskeletal: Reports back pain; Denies neck pain Integumentary Denies abscess or rash Neurologic Neurologic: Denies headache(s) or weakness Allergic/Immunologic Allergic/Immunologic ED: Denies mouth swelling or urticaria EXAM Physical Exam Const Vital Signs: 10/14/23 10:23 Temperature 97.4 F L Temperature Source Temporal Pulse Rate 96 Respiratory Rate 16 Blood Pressure 116/74 Blood Pressure Mean 88 Pulse Ox 100 Oxygen Delivery Method Room Air Positive well nourished and well developed General Appearance ED: well developed and NAD HEENT Reports moist mucous membranes Neck full ROM and supple Extremity Extremity Narrative: There is tenderness over the right shoulder and proximal humerus. There is no obvious deformity noted. Range of motion was limited in all motions of the right shoulder secondary to pain. Radial pulses are equal bilaterally. Strength is 5/5 in the radial, median, and ulnar areas. Sensation was intact to light touch in the radial, median, ulnar, and axillary areas. Neuro oriented x3, CN's II-XII intact bilaterally, moves all extremities, no focal motor deficits and no sensory deficits noted Sensorium / Orientation: alert Motor Exam: strength 5/5 throughout Psych mental status grossly normal MDM MDM MDM Narrative Medical decision making narrative: Since patient did not have any new injuries, I do not feel repeat x-rays are necessary at this time. Patient's arm was readjusted in his sling and swath. Patient was given a prescription for a short course of [place]. Patient was encouraged to follow-up with orthopedics. Patient was advised that further analgesic medications would not come from the emergency department. Patient understood and was agreeable with the plan. All questions were answered. Discharge Plan Triage Chief Complaint: Upper Extremity Injury ED Provider: Iglesia Duggan Dx/Rx/DC Orders Clinical Impression: Closed fracture of proximal end of right humerus Instructions: ED Fracture, Shoulder Prescriptions: Continued hydrocodone-acetaminophen 5-325 mg tablet 1 tab PO Q6H PRN PRN (Reason: Pain) 3 Days Qty: 12 0RF No Action carvedilol 3.125 mg Tablet 3.125 mg PO BID Rx Instructions: must administer with a meal/food lisinopril 5 mg Tablet 5 mg PO DAILY Referrals: Sony Mendiola MD [Med Staff - Active Sta (more content not included)... Normal [facility] Emergency Department Summary on 10-09-2023 Emergency Department Summary [facility] Medical Records Department [address] [place] [address] Emergency Department Summary 10/09/23 MR#: [id number] Acct: [id number] Name: SABI DENIS Rep #: [id number] : 1965 58 From: Isrrael Cali MD PCP: Care Physician,No Primary Status:PRE ER Location: ED HPI History of Present Illness Chief Complaint: Upper Extremity Injury Informant: patient and EMS Narrative Narrative: 58-year-old male states he went to the store to buy some dinner he slipped on ice and fell to his right shoulder which he injured. He called EMS to be brought to the hospital. He denies any other injury. He is right-hand dominant. He denies any numbness or tingling. [facility] Medical History (Updated 10/09/23 @ 18:[address] Isrrael Cali MD) History of pneumothorax HTN (hypertension) Home Medications carvedilol 3.125 mg tablet 3.125 mg PO BID 02/01/23 [History Last Taken Unknown] lisinopril 5 mg tablet 5 mg PO DAILY 02/01/23 [History Last Taken Unknown] hydrocodone-acetaminophen 5-325mg 5mg-325mg 1 tab PO Q6H PRN PRN Pain 3 days #12 TABLETS 10/09/23 [Rx Last Taken Unknown] Allergy/AdvReac Type Severity Reaction Status Date / Time No Known Allergies Allergy Verified 10/09/23 18:26 Social History Smoking Status: Current every day smoker tobacco type: cigarettes alcohol intake: current alcohol intake frequency: a few times a month ROS ROS ED Constitutional Constitutional ED: Denies chills or fever(s) Musculoskeletal Musculoskeletal: Reports extremity pain; Denies neck pain Integumentary Denies Abrasions, rash or wounds Neurologic Neurologic: Denies paresthesias or weakness EXAM Physical Exam Const Vital Signs: 10/09/23 18:27 Temperature 97.6 F L Temperature Source Temporal Pulse Rate 78 Respiratory Rate 18 Blood Pressure 139/89 H Blood Pressure Mean 105 Pulse Ox 100 Oxygen Delivery Method Room Air Positive well nourished and well developed General Appearance ED: well developed and NAD Neck full ROM and supple Back/Spine normal ROM and normal to inspection Extremity Extremity Narrative: Limited range of motion right shoulder. There may be some swelling anteriorly where he has tenderness, at the bicipital groove/proximal humerus anteriorly, but there are no other areas of tenderness including the clavicle, acromioclavicular joint, acromion, and there are no deformities. 2+/4 radial pulse. No distal humeral or elbow/forearm/wrist tenderness. Other 3 extremities move without difficulty. Neuro oriented x3, no focal motor deficits and no sensory deficits noted Sensorium / Orientation: alert Psych mental status grossly normal and thought process normal Psych Narrative: Smells of alcohol. Skin no wounds Rashes: no rashes MDM MDM MDM Narrative Medical decision making narrative: 2 view x-ray series of the right shoulder my interpretation shows a comminuted proximal humerus fracture involving the metaphysis and the proximal shaft, scapular Y shows that the humeral head appears to be in place against the glenoid and there is no dislocation. Patient is neurovascular intact distally. Discussed with Dr. Mendiola who agrees with place him in a sling and swath with pain medication for now and will see as outpatient. Patient referred accordingly. Discharge Plan Triage Chief Complaint: Upper Extremity Injury ED Provider: Isrrael Cali Dx/Rx/DC Orders Clinical Impression: Closed fracture of proximal end of right humerus Instructions: Understanding a Humerus Fracture, ED Fracture, Shoulder, ED Sling and Swathe Prescriptions: New hydrocodone-acetaminophen [hydrocodone-acetaminophen] 5-325 mg tablet 1 tab PO Q6H PRN PRN (Reason: Pain) 3 Days Qty: 12 0RF No Action carvedilol 3.125 mg Tablet 3.125 mg PO BID Rx Instructions: must administer with a meal/food lisinopril 5 mg Tablet 5 mg PO DAILY Primary Care Provider: Care Physician,No Primary Referrals: Sony Mendiola MD [Med Staff - Active Staff] - As soon as possible Care Physician,No Primary [Primary Care Provider] - Disposition Disposition: Home, Self Care What to do if you have Problems For any increased pain, shortness of breath, bleeding, nausea or vomiting, chest pain, or any unexpected problems, contact your Primary Care Provider. Call [facility] ([phone]) or report to the closest Emergency Room. Call 911 if necessary. 10/09/23 7542 Cosigner Signature (if applicable): CC: Dr. Sony Mendiola MD; No Primary Care Physician Signed Normal [facility] Shoulder min 2 Viewson 10-09 Shoulder min 2 Views [facility] Imaging Services [address] [place] [address] Shoulder min 2 Views MR#: [id number] Acct: [id number] Name: SABI DENIS Rep #: [id number] : 1965 M 58 From: Tom Escalera MD PCP: Status: REG ER Study: Shoulder min 2 Views Date of Exam: 10/09/23 Exam# [id number] Ordering Dr: Isrrael Cali MD [id number] STUDY: X-RAY - RIGHT SHOULDER REASON FOR EXAM: Male, 58 years old. INJURY TECHNIQUE: 2 view(s) of the shoulder. COMPARISON: None. ___ FINDINGS: Normal glenohumeral articulation. Normal acromioclavicular joint. Normal acromion. Acute anteriorly displaced spiral fracture of the humeral neck and proximal shaft of the humerus. There is suggestive of a large lytic lesion with possible chondroid calcifications worrisome for a pathologic fracture possibly from an enchondroma or chondrosarcoma. Correlation with bone scan would be useful to evaluate for other bone lesions. The soft tissue structures are unremarkable. Multiple healed right rib fractures. Normal visualized pulmonary apex. ___ RAD/Shoulder min 2 Views IMPRESSION: Suspect acute pathologic fracture of the neck and proximal shaft of the humerus possibly from enchondroma, chondrosarcoma, or metastatic disease. Correlation with bone scan and MRI may be useful. Electronically Signed: Tom Escalera MD at 19:23 EST , CC: Dr. Isrrael Cali MD Slip Cover Maker: Signed Normal [facility] HEMOGLOBIN A1Con 10-28-2022 Glucose [Mass/Vol] 114 mg/dL Normal [facility] Comment on above: Performed By: #### HBA1E #### [facility] [address] [place] [address] HbA1c (Bld) [Mass fraction] 5.6 % Normal [facility] Comment on above: Result Comment: Diagnosis of Diabetes-Ad ults Non-Diabetic: < or = 5.6% Increased risk for developing diabetes: 5.7-6.4% Diagnostic of diabetes: > or = 6.5% . Monitoring of Diabetes Age (y) Therapeutic Goal (%) Adults: >18 <7.0 Pediatrics: 13-18 <7.5 7-12 <8.0 0- 6 7.5-8.5 Citizen Of [place] Diabetes Association. Diabetes Care 33(S1), Sep 2009. Performed By: #### H BA1E #### [facility] [address] [place] [address] CBCon 10-26-2022 Erythrocyte distribution width (RBC) [Ratio] 13.1 % Normal 11.5 - 14.5 [facility] Comment on above: Performed By: #### CBC #### [facility] [address] [place] [address] Hematocrit (Bld) [Volume fraction] 43.0 % Normal 41.0 - 52.0 [facility] Comment on above: Performed By: #### CBC #### [facility] [address] [place] [address] Hemoglobin (Bld) [Mass/Vol] 14.5 g/dL Normal 13.5 - 17.5 [facility] Comment on above: Performed By: #### CBC #### [facility] [address] [place] [address] MCHC (RBC) [Mass/Vol] 33.7 g/dL Normal 32.0 - 36.0 [facility] Comment on above: Performed By: #### CBC #### [facility] [address] [place] [address] MCV (RBC) [Entitic vol] 97 fL Normal 80 - 100 [facility] Comment on above: Performed By: #### CBC #### [facility] [address] [place] [address] NUCLEATED RBC 0.0 /100 WBC Normal 0.0-0.0 [facility] Comment on above: Performed By: #### CBC #### [facility] [address] [place] [address] Platelets (Bld) [#/Vol] 407 10*3/uL Normal 150 - 450 [facility] Comment on above: Performed By: #### CBC #### [facility] [address] [place] [address] RBC 4.45 x10E12/L Low 4.50 - 5.90 [facility] Comment on above: Performed By: #### CBC #### [facility] [address] [place] [address] WBC (Bld) [#/Vol] 8.0 10*3/uL Normal 4.4 - 11.3 [facility] Comment on above: Performed By: #### CBC #### [facility] [address] [place] [address] COMPREHENSIVE PANELon 2022 Albumin [Mass/Vol] 4.7 g/dL Normal 3.4 - 5.0 [facility] Comment on above: Performed By: #### CMP #### [facility] [address] [place] [address] ALP [Catalytic activity/Vol] 50 U/L Normal 33 - 120 [facility] Comment on above: Performed By: #### CMP #### [facility] [address] [place] [address] ALT [Catalytic activity/Vol] 15 U/L Normal 10 - 52 [facility] Comment on above: Result Comment: Patients treated with Hickey lfasalazine may generate falsely decreased results for ALT. Performed By: #### C MP #### [facility] [address] [place] [address] Anion gap [Moles/Vol] 11 mmol/L Normal 10 - 20 [facility] Comment on above: Performed By: #### CMP #### [facility] [address] [place] [address] AST [Catalytic activity/Vol] 17 U/L Normal 9 - 39 [facility] Comment on above: Performed By: #### CMP #### [facility] [address] [place] [address] Bilirubin [Mass/Vol] 0.8 mg/dL Normal 0.0 - 1.2 [facility] Comment on above: Performed By: #### CMP #### [facility] [address] [place] [address] Calcium [Mass/Vol] 10.2 mg/dL Normal 8.6 - 10.6 [facility] Comment on above: Performed By: #### CMP #### [facility] [address] [place] [address] Chloride [Moles/Vol] 93 mmol/L Low 98 - 107 [facility] Comment on above: Performed By: #### CMP #### [facility] [address] [place] [address] Creatinine [Mass/Vol] 0.92 mg/dL Normal 0.50 - 1.30 [facility] Comment on above: Performed By: #### CMP #### [facility] [address] [place] [address] eGFR MALE >90 Normal >90 [facility] Comment on above: Result Comment: CALCULATIONS OF ESTIMATE D GFR ARE PERFORMED USING THE 2020 CKD-EPI STUDY REFIT EQUATION WITHOUT THE RACE VARIABLE FOR THE IDMS-TRACEABLE CREATININE METHODS. https://jasn.asnjournals.org/content//ASN.1022200314 Performed By: #### C MP #### [facility] [address] [place] [address] Glucose [Mass/Vol] 124 mg/dL High 74 - 99 [facility] Comment on above: Performed By: #### CMP #### [facility] [address] [place] [address] HCO3 (Bld) [Moles/Vol] 35 mmol/L High 21 - 32 [facility] Comment on above: Performed By: #### CMP #### [facility] [address] [place] [address] Potassium [Moles/Vol] 4.1 mmol/L Normal 3.5 - 5.3 [facility] Comment on above: Performed By: #### CMP #### [facility] [address] [place] [address] Protein [Mass/Vol] 7.4 g/dL Normal 6.4 - 8.2 [facility] Comment on above: Performed By: #### CMP #### [facility] [address] [place] [address] Sodium [Moles/Vol] 135 mmol/L Low 136 - 145 [facility] Comment on above: Performed By: #### CMP #### [facility] [address] [place] [address] Urea nitrogen [Mass/Vol] 10 mg/dL Normal 6 - 23 [facility] Comment on above: Performed By: #### CMP #### [facility] [address] [place] [address] Hemoglobin A1Con 10-26-2022 Glucose [Mass/Vol] 114 mg/dL [facility] Work Phone: HbA1c (Bld) [Mass fraction] 5.6 % [facility] Work Phone: Comment on above: Diagnosis of Diabetes-Adults Non-Diabeti c: < or = 5.6% Increased risk for developing diabetes: 5.7-6.4% Diagnostic of diabetes: > or = 6.5%. Monitoring of Diabetes Age (y) Therapeutic Goal (%) Adults: >18 <7.0 Pediatrics: 13-18 <7.5 7-12 <8.0 0- 6 7.5-8.5 [place] [employer] Association. Diabetes Care 33(S1), Sep 2009. LIPID PANEL (CORONARY RISK 2 )on 10-26-2022 Cholesterol [Mass/Vol] 135 mg/dL Normal 0 - 199 [facility] Comment on above: Result Comment: . AGE DESIRABLE BORDERLINE HIGH HIGH 0-19 Y 0 - 169 170 - 199 >/= 200 20-24 Y 0 - 189 190 - 224 >/= 225 >24 Y 0 - 199 200 - 239 >/= 240 All ranges are based on fasting samples. Specific therapeutic targets will vary based on patient-specific cardiac risk. . Pediatric guidelines reference:Pediatrics 2011, 128(S5). Adult guidelines reference: NCEP ATPIII Guidelines, BILLY 2001, 258:2486-97 . Venipuncture immediately after or during the administration of Metamizole may lead to falsely low results. Testing should be performed immediately prior to Metamizole dosing. Performed By: #### L IPID #### [facility] [address] [place] [address] Cholesterol in HDL [Mass/Vol] 33.9 mg/dL Abnormal [facility] Comment on above: Result Comment: . AGE VERY LOW LOW NORMAL HIGH 0-19 Y < 35 < 40 40-45 ---- 20-24 Y ---- < 40 >45 ---- >24 Y ---- < 40 40-60 >60 . Performed By: #### L IPID #### [facility] [address] [place] [address] Cholesterol in LDL [Mass/Vol] 88 mg/dL Normal 0 - 99 [facility] Comment on above: Result Comment: . NEAR BORD AGE DESIRABLE OPTIMAL HIGH HIGH VERY HIGH 0-19 Y 0 - 109 --- 110-129 >/= 130 ---- 20-24 Y 0 - 119 --- 120-159 >/= 160 ---- >24 Y 0 - 99 100-129 130-159 160-189 >/=190 . Performed By: #### L IPID #### [facility] [address] [place] [address] Cholesterol in VLDL [Mass/Vol] 14 mg/dL Normal 0 - 40 [facility] Comment on above: Performed By: #### LIPID #### [facility] [address] [place] [address] Cholesterol.tot al/Cholesterol in HDL [Mass ratio] 4.0 {ratio} Normal [facility] Comment on above: Result Comment: REF VALUES DESIRABLE < 3.4 HIGH RISK > 5.0 Performed By: #### L IPID #### [facility] [address] [place] [address] Triglyceride [Mass/Vol] 68 mg/dL Normal 0 - 149 [facility] Comment on above: Result Comment: . AGE DESIRABLE BORDERLINE HIGH HIGH VERY HIGH 0 D-90 D 19 - 174 ---- ---- ---- 91 D- 9 Y 0 - 74 75 - 99 >/= 100 ---- 10-19 Y 0 - 89 90 - 129 >/= 130 ---- 20-24 Y 0 - 114 115 - 149 >/= 150 ---- >24 Y 0 - 149 150 - 199 200- 499 >/= 500 . Venipuncture immediately after or during the administration of Metamizole may lead to falsely low results. Testing should be performed immediately prior to Metamizole dosing. Performed By: #### L IPID #### [facility] [address] [place] [address] Laboratory - Chemistry and C hemistry - challengeon 10-26-2022 Albumin BCP dye [Mass/Vol] 4.7 g/dL 3.4 - 5.0 [facility] Work Phone: ALP [Catalytic activity/Vol] 50 U/L 33 - 120 [facility] Work Phone: ALT With P-5'-P [Catalytic activity/Vol] 15 U/L 10 - 52 [facility] Work Phone: Comment on above: Patients treated with Sulfasalazine may generate falsely decreased results for ALT. Anion gap [Moles/Vol] 11 mmol/L 10 - 20 [facility] Work Phone: AST With P-5'-P [Catalytic activity/Vol] 17 U/L 9 - 39 [facility] Work Phone: Bilirubin [Mass/Vol] 0.8 mg/dL 0.0 - 1.2 [facility] Work Phone: Calcium [Mass/Vol] 10.2 mg/dL 8.6 - 10.6 [facility] Work Phone: Chloride [Moles/Vol] 93 mmol/L below low threshold 98 - 107 [facility] Work Phone: CO2 [Moles/Vol] 35 mmol/L above high threshold 21 - 32 [facility] Work Phone: Creatinine [Mass/Vol] 0.92 mg/dL See Below [facility] Work Phone: Comment on above: Reference Range: 0.50 - 1.30 Glucose [Mass/Vol] 124 mg/dL above high threshold 74 - 99 [facility] Work Phone: Potassium [Moles/Vol] 4.1 mmol/L 3.5 - 5.3 [facility] Work Phone: Protein [Mass/Vol] 7.4 g/dL 6.4 - 8.2 [facility] Work Phone: Sodium [Moles/Vol] 135 mmol/L below low threshold 136 - 145 [facility] Work Phone: Urea nitrogen [Mass/Vol] 10 mg/dL 6 - 23 [facility] Work Phone: Laboratory - Hematology and Cell countson 10-26-2022 Erythrocyte distribution width (RBC) [Ratio] 13.1 % See Below [facility] Work Phone: Comment on above: Reference Range: 11.5 - 14.5 Hematocrit (Bld) [Volume fraction] 43.0 % See Below [facility] Work Phone: Comment on above: Reference Range: 41.0 - 52.0 Hemoglobin (Bld) [Mass/Vol] 14.5 g/dL See Below [facility] Work Phone: Comment on above: Reference Range: 13.5 - 17.5 MCHC (RBC) [Mass/Vol] 33.7 g/dL See Below [facility] Work Phone: Comment on above: Reference Range: 32.0 - 36.0 MCV (RBC) [Entitic vol] 97 fL 80 - 100 [facility] Work Phone: Platelets (Bld) [#/Vol] 407 10*3/uL 150 - 450 [facility] Work Phone: RBC (Bld) [#/Vol] 4.45 {x10E12/L} below low threshold See Below [facility] Work Phone: Comment on above: Reference Range: 4.50 - 5.90 WBC (Bld) [#/Vol] 8.0 10*3/uL 4.4 - 11.3 [facility] Work Phone: Lipid Panelon 10-26-2022 Cholesterol [Mass/Vol] 135 mg/dL 0 - 199 [facility] Work Phone: Comment on above: . AGE DESIRABLE BORDERLINE HIGH HIGH 0-1 9 Y 0 - 169 170 - 199 >/= 200 20-24 Y 0 - 189 190 - 224 >/= 225 >24 Y 0 - 199 200 - 239 >/= 240 All ranges are based on fasting samples. Specific therapeutic targets will vary based on patient-specific cardiac risk.. Pediatric guidelines reference:Pediatrics 2011, 128(S5). Adult guidelines reference: NCEP ATPIII Guidelines, BILLY 2001, 258:2486-97. Venipuncture immediately after or during the administration of Metamizole may lead to falsely low results. Testing should be performed immediately prior to Metamizole dosing. Cholesterol in HDL [Mass/Vol] 33.9 mg/dL Abnormal [facility] Work Phone: Comment on above: . AGE VERY LOW LOW NORMAL HIGH 0-19 Y < 35 < 40 40-45 ---- 20-24 Y ---- < 40 >45 ---- >24 Y ---- < 40 40-60 >60. Cholesterol in LDL [Mass/Vol] 88 mg/dL 0 - 99 [facility] Work Phone: Comment on above: . NEAR BORD AGE DESIRABLE OPTIMAL HIGH H IGH VERY HIGH 0-19 Y 0 - 109 --- 110-129 >/= 130 ---- 20-24 Y 0 - 119 --- 120-159 >/= 160 ---- >24 Y 0 - 99 100-129 130-159 160-189 >/=190. Cholesterol.tot al/Cholesterol in HDL [Mass ratio] 4.0 {ratio} [facility] Work Phone: Comment on above: REF VALUESDESIRABLE < 3.4HIGH RISK > 5.0 Triglyceride [Mass/Vol] 68 mg/dL 0 - 149 [facility] Work Phone: Comment on above: . AGE DESIRABLE BORDERLINE HIGH HIGH ALISHA Y HIGH 0 D-90 D 19 - 174 ---- ---- ----91 D- 9 Y 0 - 74 75 - 99 >/= 100 ---- 10-19 Y 0 - 89 90 - 129 >/= 130 ---- 20-24 Y 0 - 114 115 - 149 >/= 150 ---- >24 Y 0 - 149 150 - 199 200- 499 >/= 500. Venipuncture immediately after or during the administration of Metamizole may lead to falsely low results. Testing should be performed immediately prior to Metamizole dosing. Lipid Panel 14 mg/dL 0 - 40 [facility] Work Phone: No Panel Informationon 10-26 0.0 {/100_WBC} 0.0-0.0 [facility] Work Phone: >90 >90 [facility] Work Phone: Comment on above: CALCULATIONS OF ESTIMATED GFR ARE PERFOR MED USING THE 2020 CKD-EPI STUDY REFIT EQUATION WITHOUT THE RACE VARIABLE FOR THE IDMS-TRACEABLE CREATININE METHODS.https://jasn.asnjournals.org/content//ASN.2020 139300 Office Visit (Internal Medic ine)on 10-26-2022 Follow-up visit Diagnoses/Problems Assessed Essential hypertension (401.9) (I10) COPD, mild (496) (J44.9) Cigarette nicotine dependence without complication (305.1) (F17.210) Orders Essential hypertension Complete Blood Count; Status:Active; Requested for:26Oct2022; Perform:Lab Services - Lab To Draw (Blood Test); Due:24Jan2023;Ordered; For:Essential hypertension; Ordered By:Marii Bales; Refill all medication after lab work Comprehensive Metabolic Panel; Status:Active; Requested for:26Oct2022; Perform:Lab Services - Lab To Draw (Blood Test); Due:24Jan2023;Ordered; For:Essential hypertension; Ordered By:Marii Bales; Lipid Panel; Status:Active; Requested for:26Oct2022; Perform:Lab Services - Lab To Draw (Blood Test); Due:24Jan2023;Ordered; For:Essential hypertension; Ordered By:Marii Bales; Prostate Spec.Ag, Screen; Status:Active; Requested for:26Oct2022; Perform:Lab Services - Lab To Draw (Blood Test); Due:24Jan2023;Ordered; For:Essential hypertension; Ordered By:Marii Bales; TSH - Thyroid Stimulating Hormone, Serum; Status:Active; Requested for:26Oct2022; Perform:Lab Services - Lab To Draw (Blood Test); Due:24Jan2023;Ordered; For:Essential hypertension; Ordered By:Marii Bales; Urinalysis; Status:Active; Requested for:26Oct2022; Perform:Lab Services - Lab To Draw (Non-Blood Test); Due:24Jan2023;Ordered; For:Essential hypertension; Ordered By:Marii Bales; Provider Impressions Meds refilled follow-up in 6 months Patient agrees Advised to cut down on smoking and alcohol Fasting lab work today Previous visit Up-to-date with Cologuard Received Pneumovax Received COVID-19 vaccine Lab work today patient is fasting Continue current medication Discussed in detail about cutting down on alcohol and smoking On and off smoking but it is rare now Follow-up in 6 was come back early with any new sign and symptoms. Patient understands and agreement plan. Chief Complaint Chronic alcoholism hypertension History of Present Qityhdy27-hakk-nde male follow-up on Chronic alcoholism currently patient is significant cut down on drinking Elevated LFT Hyponatremia - secondary to beer potomania Former smoker History of right tension pneumothorax status post VATS Anemia No new signs and symptoms needs refill Did not do lab work on previous physical Denied any chest pain shortness of breath Up-to-date with Cologuard Complaining of recent cough congestion improving Still smoking Active Problems Problems Alcoholism, chronic (303.90) (F10.20) Anemia due to blood loss (280.0) (D50.0) Blocked ear (388.8) (H93.8X9) Cigarette nicotine dependence without complication (305.1) (F17.210) Closed fracture of multiple ribs of right side, sequela (905.1) (S22.41XS) COPD, mild (496) (J44.9) Depression (311) (F32.A) Eczema (692.9) (L30.9) Encounter for immunization (V03.89) (Z23) Erectile dysfunction (607.84) (N52.9) Essential hypertension (401.9) (I10) Hyponatremia (276.1) (E87.1) Pneumothorax, right (512.89) (J93.9) Screening for colorectal cancer (V76.51,V76.41) (Z12.11,Z12.12) Vitamin D deficiency (268.9) (E55.9) Past Medical History Problems History of Abscess (682.9) (L02.91) History of Bruised rib (922.1) (S20.219A) History of Collapse of lung (518.0) (J98.19) History of chronic obstructive lung disease (V12.69) (Z87.09) History of dental abscess (V12.79) (Z87.19) History of fracture of vertebra (V15.51) (Z87.81) History of pneumonia (V12.61) (Z87.01) History of pulmonary emphysema (V12.69) (Z87.09) Surgical History Problems History of Lung Surgery History of Oral Surgery Tooth Extraction Family History Mother No pertinent family history Father Family history of hypertension (V17.49) (Z82.49) Sibling Family history of hypertension (V17.49) (Z82.49) Brother Family history of myocardial infarction (V17.3) (Z82.49) Social History 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 Vitals Vital Signs Recorded: 26Oct2022 10:18AM Xpeekxmzjlx17.5 F Heart Rate81 Zqqyymjk451 Cnyujfpbd31 Height6 ft Yzdgvb656 lb BMI Entswctjrm92.97 kg/m2 BSA Calculated1.95 Tobacco Usea) Yes Patient encouraged to stop using tobacco productsYes O2 Vngtybvqpe66 Physical Exam Constitutional General appearance: Alert and in no acute distress. Eyes Inspection of eyes: Sclera and conjunctiva were normal. Pupils (more content not included)... Normal [employer] PROSTATE SPEC.AG,SCREENon PROSTATE SPEC.AG,SCREEN 0.17 ng/mL Normal 0.00 - 4.00 [facility] Comment on above: Result Comment: The FDA requires that th e method used for PSA assay be reported to the physician. Values obtained with different assay methods must not be used interchangeably. This test was performed at [facility] using the Siemens Atellica PSA method, which is a sandwich immunoassay using chemiluminescence for quantitation. The assay is approved for measurement of prostate-specific antigen (PSA) in serum and may be used in conjunction with a digital rectal examination in men 50 years and older as an aid in detection of prostate cancer. 9-Yoaft-bdwzrnqao inhibitors (e.g. Proscar, Finasteride, Avodart, Dutasteride and Arelis) for the treatment of BPH have been shown to lower PSA levels by an average of 50% after 6 months of treatment. Performed By: #### P [facility] #### [facility] [address] [place] [address] Prostate Spec.Ag, Screenon 0 10-26-2022 Prostate specific Ag [Mass/Vol] 0.17 ng/mL See Below -[facility] Work Phone: Comment on above: Reference Range: 0.00 - 4.00The FDA requ ires that the method used for PSA assay be reported to the physician. Values obtained with different assay methods must not be used interchangeably. This test was performed at [facility] using the SiemensAtellica PSA method, which is a sandwich immunoassay using chemiluminescence for quantitation. The assay is approvedfor measurement of prostate-specific antigen (PSA) in serum and may be used in conjunction with a digital rectalexamination in men 50 years and older as an aid in detection of prostate cancer. 7-Euktw-oglrbrdky inhibitors (e.g. Proscar, Finasteride, Avodart, Dutasteride and Arelis) for the treatment of BPH have been shown to lower PSA levels by an average of 50% after 6 months of treatment. TSHon 10-26-2022 TSH Qn 1.38 m[IU]/L Normal 0.44 - 3.98 [facility] Comment on above: Result Comment: TSH testing is performed using different testing methodology at [facility] than at [facility]. Direct result comparisons should only be made within the same method. Performed By: #### T SH2 #### [facility] [address] [place] [address] TSH - Thyroid Stimulating Ho rmone, Serumon 10-26-2022 TSH Qn 1.38 m[IU]/L See Below [facility] Work Phone: Comment on above: Reference Range: 0.44 - 3.98 TSH testing is performed using different testing methodology at [facility] than at [facility]. Direct result comparisons should only be made within the same method. Tobacco Screening.on 023 Tobacco use status CPHS a) Yes [facility] Work Phone: Tobacco Screening. Yes [facility] Work Phone: URINALYSISon 10-26-2022 Appearance (U) CLEAR Normal CLEAR [facility] Comment on above: Performed By: #### UA #### [facility] [address] [place] [address] Bilirubin Ql (U) Negative Normal NEGATIVE [facility] Comment on above: Performed By: #### UA #### [facility] [address] [place] [address] Color (U) YELLOW Normal STRAW,YELLO W [facility] Comment on above: Performed By: #### UA #### [facility] [address] [place] [address] Glucose Ql (U) Negative Normal NEGATIVE [facility] Comment on above: Performed By: #### UA #### [facility] [address] [place] [address] Hemoglobin Ql (U) Negative Normal NEGATIVE [facility] Comment on above: Performed By: #### UA #### [facility] [address] [place] [address] Ketones Ql (U) Negative Normal NEGATIVE [facility] Comment on above: Performed By: #### UA #### [facility] [address] [place] [address] Leukocyte esterase Test strip Ql (U) Negative Normal NEGATIVE [facility] Comment on above: Performed By: #### UA #### [facility] [address] [place] [address] Nitrite Ql (U) Negative Normal NEGATIVE [facility] Comment on above: Performed By: #### UA #### [facility] [address] [place] [address] pH (U) 7.0 [pH] Normal 5.0 - 8.0 [facility] Comment on above: Performed By: #### UA #### [facility] [address] [place] [address] Protein Ql (U) Negative Normal NEGATIVE [facility] Comment on above: Performed By: #### UA #### [facility] [address] [place] [address] Specific gravity (U) [Rel density] 1.015 Normal 1.005 - 1.035 [facility] Comment on above: Performed By: #### UA #### [facility] [address] [place] [address] Urobilinogen (U) [Mass/Vol] mg/dL Normal 0.0 - 1.9 [facility] Comment on above: Performed By: #### UA #### [facility] [address] [place] [address] Urinalysison 10-26-2022 Color (U) YELLOW See Below [facility] Work Phone: Comment on above: Reference Range: STRAW,YELLOW Glucose Ql (U) Negative NEGATIVE [facility] Work Phone: Ketones Ql (U) Negative NEGATIVE [facility] Work Phone: Leukocyte esterase Test strip Ql (U) Negative NEGATIVE [facility] Work Phone: [phone] pH (U) 7.0 [pH] 5.0 - 8.0 [facility] Work Phone: Protein (U) [Mass/Vol] Negative NEGATIVE [facility] Work Phone: RBC (U) [#/Vol] Negative NEGATIVE [facility] Work Phone: [phone] Specific gravity (U) [Rel density] 1.015 1 See Below [facility] Work Phone: Comment on above: Reference Range: 1.005 - 1.035 Urinalysis Negative NEGATIVE [facility] Work Phone: Urinalysis <2.0 0.0 - 1.9 [facility] Work Phone: Urinalysis CLEAR CLEAR [facility] Work Phone: Office Visit (Internal Medic ine)on 04-06-2022 Follow-up visit Diagnoses/Problems Health Maintenance/Risks Encounter for preventive health examination (V70.0) (Z00.00) Assessed Essential hypertension (401.9) (I10) Orders Health Maintenance, Essential hypertension Complete Blood Count; Status:Active; Requested for:06Apr2022; Perform:Lab Services - Lab To Draw (Blood Test); Due:05Jul2022;Ordered; For:Health Maintenance, Essential hypertension; Ordered By:Marii Blaes; Comprehensive Metabolic Panel; Status:Active; Requested for:06Apr2022; Perform:Lab Services - Lab To Draw (Blood Test); Due:05Jul2022;Ordered; For:Health Maintenance, Essential hypertension; Ordered By:Marii Bales; Lipid Panel; Status:Active; Requested for:06Apr2022; Perform:Lab Services - Lab To Draw (Blood Test); Due:05Jul2022;Ordered; For:Health Maintenance, Essential hypertension; Ordered By:Marii Bales; Prostate Spec.Ag, Screen; Status:Active; Requested for:06Apr2022; Perform:Lab Services - Lab To Draw (Blood Test); Due:05Jul2022;Ordered; For:Health Maintenance, Essential hypertension; Ordered By:Marii Bales; TSH - Thyroid Stimulating Hormone, Serum; Status:Active; Requested for:06Apr2022; Perform:Lab Services - Lab To Draw (Blood Test); Due:05Jul2022;Ordered; For:Health Maintenance, Essential hypertension; Ordered By:Marii Bales; Urinalysis; Status:Active; Requested for:06Apr2022; Perform:Lab Services - Lab To Draw (Non-Blood Test); Due:05Jul2022;Ordered; For:Health Maintenance, Essential hypertension; Ordered By:Marii Bales; Provider Impressions Meds refilled follow-up in 6 months Patient agrees Advised to cut down on smoking and alcohol Up-to-date with Cologuard Received Pneumovax Received COVID-19 vaccine Lab work today patient is fasting Continue current medication Discussed in detail about cutting down on alcohol and smoking On and off smoking but it is rare now Follow-up in 6 was come back early with any new sign and symptoms. Patient understands and agreement plan. Chief Complaint Chronic alcoholism hypertension physical History of Present [id number] male here for physical and follow-up on chronic condition Chronic alcoholism currently patient is significant cut down on drinking Elevated LFT Hyponatremia - secondary to beer potomania Former smoker History of right tension pneumothorax status post VATS Anemia Still smoking cigarettes but its rare No new signs and symptoms needs refill To COVID-19 next Denied any chest pain shortness of breath Up-to-date with Cologuard Active Problems Problems Alcoholism, chronic (303.90) (F10.20) Anemia due to blood loss (280.0) (D50.0) Blocked ear (388.8) (H93.8X9) Cigarette nicotine dependence without complication (305.1) (F17.210) Closed fracture of multiple ribs of right side, sequela (905.1) (S22.41XS) COPD, mild (496) (J44.9) Depression (311) (F32.A) Eczema (692.9) (L30.9) Encounter for immunization (V03.89) (Z23) Erectile dysfunction (607.84) (N52.9) Essential hypertension (401.9) (I10) Hyponatremia (276.1) (E87.1) Pneumothorax, right (512.89) (J93.9) Screening for colorectal cancer (V76.51,V76.41) (Z12.11,Z12.12) Vitamin D deficiency (268.9) (E55.9) Past Medical History Problems History of Abscess (682.9) (L02.91) History of Bruised rib (922.1) (S20.219A) History of Collapse of lung (518.0) (J98.19) History of chronic obstructive lung disease (V12.69) (Z87.09) History of dental abscess (V12.79) (Z87.19) History of fracture of vertebra (V15.51) (Z87.81) History of pneumonia (V12.61) (Z87.01) History of pulmonary emphysema (V12.69) (Z87.09) Surgical History Problems History of Lung Surgery History of Oral Surgery Tooth Extraction Family History Mother No pertinent family history Father Family history of hypertension (V17.49) (Z82.49) Sibling Family history of hypertension (V17.49) (Z82.49) Brother Family history of myocardial infarction (V17.3) (Z82.49) Social History 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 Vitals Vital Signs Recorded: [id number] 01:05PM Heart Rate92 Ekqcyvmg866 Xldnqhswx72 Height6 ft Gngseb408 lb BMI Viuiagvjoa15.65 kg/m2 BSA Calculated1.97 Tobacco Usea) Yes Patient encouraged to stop using tobacco productsYes PHQ-2 #1. Over the last 2 weeks have you felt down, depressed or hopeless? (If yes, answer PHQ-9 below)No PHQ-2 #2. Over the last 2 weeks h (more content not included)... Normal [facility] Office Visit (Internal Medic ine)on 10-28-2021 Follow-up visit Diagnoses/Problems Assessed Alcoholism, chronic (303.90) (F10.20) Essential hypertension (401.9) (I10) Cigarette nicotine dependence without complication (305.1) (F17.210) COPD, mild (496) (J44.9) Orders COPD, mild Renew: Albuterol Sulfate HFA 108 (90 Base) MCG/ACT Inhalation Aerosol Solution; INHALE 2 PUFFS BY MOUTH EVERY 4 HOURS DIRECTED NEEDED Rx By: Marii Bales; Dispense: 0 Days ; #:1 X 6.7 GM Inhaler; Refill: 0;For: COPD, mild; SMILEY = N; Sent To: Other Machine [id number] Encounter for immunization Administered: Flublok Quadrivalent 0.5 ML Intramuscular Solution Prefilled Syringe For: Encounter for immunization; Ordered By:Marii Bales; Effective Date:28Oct2021; Administered by: Rubi Edmonds MA: 10/28/2021 4:03:00 PM; Last Updated By: Rubi Edmonds; 10/28/2021 4:03:46 PM Essential hypertension Changed: From Carvedilol 6.25 MG Oral Tablet TAKE 1 TABLET TWICE DAILY, WITH MORNING AND EVENING MEAL To Carvedilol 6.25 MG Oral Tablet Take 1 tablet twice daily Rx By: Marii Bales; Dispense: 90 Days ; #:180 Tablet; Refill: 1;For: Essential hypertension; SMILEY = N; Sent To: Other Machine [id number] Renew: Lisinopril-hydroCHLOROthiazide 10-12.5 MG Oral Tablet; TAKE 1 TABLET DAILY Rx By: Marii Bales; Dispense: 90 Days ; #:90 Tablet; Refill: 1;For: Essential hypertension; SMILEY = N; Sent To: Other Machine 44121 Provider Impressions Meds refilled follow-up in 6 months for physical Patient agrees Advised to cut down on smoking and alcohol Previously consider flu vaccine and Pneumovax today Lab work today patient is fasting Continue current medication Discussed in detail about cutting down on alcohol and smoking CT chest for lung cancer screening Follow-up in 6 was come back early with any new sign and symptoms. Patient understands and agreement plan. Chief Complaint Chronic alcoholism hypertension History of Present Luvpcik22-qacc-xqk male follow-up on chronic condition Chronic alcoholism currently patient is significant cut down on drinking Elevated LFT Hyponatremia - secondary to beer potomania Former smoker History of right tension pneumothorax status post VATS Anemia Still smoking cigarettes No new signs and symptoms needs refill Needs flu vaccine today Denied any chest pain shortness of breath Active Problems Problems Alcoholism, chronic (303.90) (F10.20) Anemia due to blood loss (280.0) (D50.0) Blocked ear (388.8) (H93.8X9) Cigarette nicotine dependence without complication (305.1) (F17.210) Closed fracture of multiple ribs of right side, sequela (905.1) (S22.41XS) COPD, mild (496) (J44.9) Depression (311) (F32.A) Eczema (692.9) (L30.9) Encounter for immunization (V03.89) (Z23) Erectile dysfunction (607.84) (N52.9) Essential hypertension (401.9) (I10) Hyponatremia (276.1) (E87.1) Pneumothorax, right (512.89) (J93.9) Screening for colorectal cancer (V76.51,V76.41) (Z12.11,Z12.12) Vitamin D deficiency (268.9) (E55.9) Past Medical History Problems History of Abscess (682.9) (L02.91) History of Bruised rib (922.1) (S20.219A) History of Collapse of lung (518.0) (J98.19) History of chronic obstructive lung disease (V12.69) (Z87.09) History of dental abscess (V12.79) (Z87.19) History of fracture of vertebra (V15.51) (Z87.81) History of pneumonia (V12.61) (Z87.01) History of pulmonary emphysema (V12.69) (Z87.09) Surgical History Problems History of Lung Surgery History of Oral Surgery Tooth Extraction Family History Mother No pertinent family history Father Family history of hypertension (V17.49) (Z82.49) Sibling Family history of hypertension (V17.49) (Z82.49) Brother Family history of myocardial infarction (V17.3) (Z82.49) Social History Problems Daily alcohol use 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 Vitals Vital Signs Recorded: 28Oct2021 03:27PM Bziyyacqrat11.3 F Heart Rate91 Hsbkwoex248 Mzwxbsfsj78 Height6 ft Qepcxy832 lb BMI Edfohlrjmp49.11 kg/m2 BSA Calculated1.95 Tobacco Usea) Yes O2 Ltzknrjnuw48 Physical Exam Constitutional General appearance: Alert and in no acute distress. Eyes Inspection of eyes: Sclera and conjunctiva were normal. Pupils - normal Pulmonary Respiratory assessment: No respiratory distress, normal respiratory rhythm and effort. Auscultation of Lungs: Clear bilateral breath so (more content not included)... Normal [facility] 02-20-2021 [facility] HNO ID: [id number] Author: [place] Quiroz Service: Radiology Author Type: Scrap Carrier Type: [employer] [facility] Filed: 02/20/2021 4:30 AM Note Text: Radiology Service Progress Note DATE OF SERVICE: February 20, 2021 TIME: 4:29 AM PATIENT IDENTITY VERIFICATION COMPLETED USING TWO (2) STANDARD IDENTIFIERS: Name and Date of confirmed by patient verbally. FALL SCREENING: Has the patient had 2 falls in the last year or 1 fall with injury or currently using an Ambulatory Assistive Device (Walker, Cane, Wheelchair, Crutches, etc.)? No PATIENT GENDER DATA: Male PATIENT RELEVANT IMPLANT DATA REVIEWED: Not Applicable ALLERGIES: Reviewed and unchanged CONTRAST ALLERGY: NO. EXAM: CT -CONTRAST INDUCED NEPHROPATHY RISK FACTORS: Not applicable CREATININE: Creatinine Date Value Ref Range Status 02/20/2021 0.72 (L) 0.73 - 1.22 mg/dL Final 02/17/2021 1.19 0.73 - 1.22 mg/dL Final eGFR-All Other Races Date Value Ref Range Status 02/20/2021 >60 >60 . Final Comment: eGFR (Estimated GFR) Units of measure: mL/min/1.73 meters squared eGFR is derived from the reexpressed MDRD Study equation using the following parameters: serum creatinine, age, gender and race. The creatinine assay has been calibrated to be traceable to IDMS. An eGFR <60 mL/min/1.73m2 for >3 months is consistent with chronic kidney disease. Refer to KDOQI guidelines for clinical interpretation. In patients with unstable renal function, e.g. those with acute kidney injury, the eGFR may not accurately reflect actual GFR. eGFR- Date Value Ref Range Status 02/20/2021 >60 >60 Final P.O.C.T. RESULTS: N/A February 20, 2021 TREATMENT: N/A PERIPHERAL IV DATA: Ambulatory: A peripheral IV was started in the Right antecubital site with a Angio cath: 20 gauge. RADIOLOGY DEPARTMENT: CT; Exam(s) Completed: PE Study SIGNATURE: [place] Quiroz PATIENT NAME: Sabi Denis DATE: February 20, 2021 TIME: 4:29 AM [id number] Author: RT Izzy(Jayme) Service: ? Author Type: Scrap Carrier Type: [facility] Filed: 02/20/2021 3:00 AM Note Text: Radiology Service Progress Note PATIENT NAME: Sabi Denis DATE OF SERVICE: February 20, 2021 TIME: 2:59 AM PATIENT IDENTITY VERIFICATION COMPLETED USING TWO (2) [...] IMPLANT DATA REVIEWED: Not Applicable RADIOLOGY DEPARTMENT: General X-ray: Exam(s) Completed: Chest X-Ray PERIPHERAL IV DATA: Not applicable SIGNED BY: RT Izzy(R) February 20, 2021 2:59 AM Normal [facility] Basic Metabolic Panlon 02-20 Anion gap [Moles/Vol] 17 mmol/L Normal - [facility] Comment on above: Performed By: #### MG1, CBCDIF, BMP #### [place] [address] Calcium [Mass/Vol] 9.1 mg/dL Normal 8.5-10.2 [facility] Comment on above: Performed By: #### MG1, CBCDIF, BMP #### [place] [address] Chloride [Moles/Vol] 82 mmol/L Low 97-105 [facility] Comment on above: Performed By: #### MG1, CBCDIF, BMP #### [place] [address] CO2 [Moles/Vol] 27 mmol/L Normal 22-30 [facility] Comment on above: Performed By: #### MG1, CBCDIF, BMP #### [place] [address] Creatinine [Mass/Vol] 0.72 mg/dL Low 0.73-1.22 [facility] Comment on above: Performed By: #### MG1, CBCDIF, BMP #### [place] [address] eGFR- Amer. >60 Normal >60 [facility] Comment on above: Performed By: #### MG1, CBCDIF, BMP #### [place] [address] eGFR-All Other Races >60 Normal >60 [facility] Comment on above: Result Comment: eGFR (Estimated GFR) Uni ts of measure: mL/min/1.73 meters squared eGFR is derived from the reexpressed MDRD Study equation using the following parameters: serum creatinine, age, gender and race. The creatinine assay has been calibrated to be traceable to IDMS. An eGFR <60 mL/min/1.73m2 for >3 months is consistent with chronic kidney disease. Refer to KDOQI guidelines for clinical interpretation. In patients with unstable renal function, e.g. those with acute kidney injury, the eGFR may not accurately reflect actual GFR. Performed By: #### M G1, CBCDIF, BMP #### [place] [address] Glucose [Mass/Vol] 91 mg/dL Normal 74-99 [facility] Comment on above: Performed By: #### MG1, CBCDIF, BMP #### [place] [address] Potassium [Moles/Vol] 3.5 mmol/L Low 3.7-5.1 [facility] Comment on above: Performed By: #### MG1, CBCDIF, BMP #### [place] [address] Sodium [Moles/Vol] 126 mmol/L Low 136-144 [facility] Comment on above: Performed By: #### MG1, CBCDIF, BMP #### [place] [address] Urea nitrogen [Mass/Vol] 5 mg/dL Low 9-24 [facility] Comment on above: Performed By: #### MG1, CBCDIF, BMP #### [place] [address] CBC and Differentialon 02-20 Abs Baso 0.15 k/uL High <0.11 [facility] Comment on above: Performed By: #### MG1, CBCDIF, BMP #### [place] [address] Abs [place] 1.03 k/uL High <0.87 [facility] Comment on above: Performed By: #### MG1, CBCDIF, BMP #### [place] [address] Abs Neut 4.28 k/uL Normal 1.45-7.50 [facility] Comment on above: Performed By: #### MG1, CBCDIF, BMP #### [place] [address] Absolute nRBC <0.01 Normal <0.01 [facility] Comment on above: Performed By: #### MG1, CBCDIF, BMP #### [place] [address] Basophils/100 WBC (Bld) 2.0 % Normal [facility] Comment on above: Performed By: #### MG1, CBCDIF, BMP #### [place] [address] DTYPE Auto Diff Normal [facility] Comment on above: Performed By: #### MG1, CBCDIF, BMP #### [place] [address] Eosinophils (Bld) [#/Vol] 0.62 10*3/uL High <0.46 [facility] Comment on above: Performed By: #### MG1, CBCDIF, BMP #### [place] [address] Eosinophils/100 WBC (Bld) 8.1 % Normal [facility] Comment on above: Performed By: #### MG1, CBCDIF, BMP #### [place] [address] Erythrocyte distribution width (RBC) [Ratio] 13.2 % Normal 11.5-15.0 [facility] Comment on above: Performed By: #### MG1, CBCDIF, BMP #### [place] [address] Hematocrit (Bld) [Volume fraction] 42.2 % Normal 39.0-51.0 [facility] Comment on above: Performed By: #### MG1, CBCDIF, BMP #### [place] [address] Hemoglobin (Bld) [Mass/Vol] 14.8 g/dL Normal 13.0-17.0 [facility] Comment on above: Performed By: #### MG1, CBCDIF, BMP #### [place] [address] Lymphocytes (Bld) [#/Vol] 1.53 10*3/uL Normal 1.00-4.00 [facility] Comment on above: Performed By: #### MG1, CBCDIF, BMP #### [place] [address] Lymphocytes/100 WBC (Bld) 20.1 % Normal [facility] Comment on above: Performed By: #### MG1, CBCDIF, BMP #### [place] [address] MCH 32.5 pG Normal 26.0-34.0 [facility] Comment on above: Performed By: #### MG1, CBCDIF, BMP #### [place] [address] MCHC (RBC) [Mass/Vol] 35.1 g/dL Normal 30.5-36.0 [facility] Comment on above: Performed By: #### MG1, CBCDIF, BMP #### [place] [address] MCV (RBC) [Entitic vol] 92.7 fL Normal 80.0-100.0 [facility] Comment on above: Performed By: #### MG1, CBCDIF, BMP #### [place] [address] Monocytes/100 WBC (Bld) 13.5 % Normal [facility] Comment on above: Performed By: #### MG1, CBCDIF, BMP #### [place] [address] Neutrophils/100 WBC (Bld) 56.3 % Normal [facility] Comment on above: Performed By: #### MG1, CBCDIF, BMP #### [place] [address] NRBCs 0.0 /100 WBC Normal 0 [facility] Comment on above: Performed By: #### MG1, CBCDIF, BMP #### [place] [address] Platelet mean volume (Bld) [Entitic vol] 9.4 fL Normal 9.0-12.7 [facility] Comment on above: Performed By: #### MG1, CBCDIF, BMP #### [place] [address] Platelets (Bld) [#/Vol] 354 10*3/uL Normal 150-400 [facility] Comment on above: Performed By: #### MG1, CBCDIF, BMP #### [place] [address] RBC (Bld) [#/Vol] 4.55 10*6/uL Normal 4.20-6.00 [facility] Comment on above: Performed By: #### MG1, CBCDIF, BMP #### [place] [address] WBC (Bld) [#/Vol] 7.61 10*3/uL Normal 3.70-11.00 [facility] Comment on above: Performed By: #### MG1, CBCDIF, BMP #### [place] [address] CT CHEST W IVCON PEon 2020 CT CHEST W IVCON PE * * *Final Report* * * DATE OF EXAM: Feb 20 2021 4:35AM [facility] 0540 - CT CHEST W IVCON PE / PROCEDURE REASON: PE suspected, high pretest prob * * * * Physician Interpretation * * * * EXAMINATION: CHEST CT WITH CONTRAST (PULMONARY EMBOLISM PROTOCOL) CLINICAL HISTORY: PE suspected, high pretest prob chest pain Technique: Spiral CT acquisition of the chest from the thoracic inlet to the upper abdomen following IV contrast. Axial 1 and 3 mm thick slices plus coronal and sagittal reformatted images. MQ: CTCP_5 Contrast: 80 mL Omnipaque [address] Radiation dose: Integrated Dose-length product (DLP) for this visit = 449 mGy*cm CT Dose Reduction Employed: Automated exposure control(AEC) and iterative recon Comparison: 02/20/2021 chest radiograph RESULT: Limitations: None. Evaluation for thromboembolic disease: - Right heart chambers: No thromboembolic disease. - Main pulmonary arteries: No thromboembolic disease. - Lobar pulmonary arteries: No thromboembolic disease. - Segmental pulmonary arteries: No thromboembolic disease. - Subsegmental pulmonary arteries: No thromboembolic disease. - Additional pulmonary artery findings: The main pulmonary artery is normal in caliber. Lines, tubes, and devices: None. Lung parenchyma and airways: Mild emphysema No consolidation. No suspicious pulmonary nodule. The central airways are patent. Pleural space: No pleural effusion. No pleural thickening. Lower neck, lymph nodes, and mediastinum: The imaged thyroid gland is normal. No lymphadenopathy in the supraclavicular, axillary, mediastinal, or hilar regions. Heart, pericardium, and thoracic vessels: The thoracic aorta is normal in caliber. The cardiac chambers are normal in size. No coronary artery atherosclerotic calcifications are noted, although the study is not optimized for coronary assessment. No pericardial effusion or thickening. Bones and soft tissues: Bilateral gynecomastia . Old multiple right rib fractures. Unchanged T9-L3 vertebral body fractures. Upper abdomen: Bilateral adrenal thickening. Colonic diverticulosis. [employer] Judge (topogram) images: No additional findings. IMPRESSION: No CT evidence of pulmonary embolism. Slip Cover Maker: RUDY Transcribe Date/Time: Feb 20 2021 4:40A Dictated by : ALBERTO SWEET MD This examination was interpreted and the report reviewed and electronically signed by: ALBERTO SWEET MD on Feb 20 2021 4:44AM EST [id number] Normal [facility] D dimeron 02-20-2021 D dimer 790 ng/mL FEU High <500 [facility] Comment on above: Result Comment: 500 ng/mL FEU is the D D neha cutoff to exclude DVT (deep vein thrombosis) and PE (pulmonary embolism) in patients with a low pre test probability. Supplemental Comment: In patients over 50 years with a low pre test probability for DVT and/or PE, an age adjusted D dimer cutoff can be calculated as [age x 10] ng/mL FEU. For example, a patient of 88 years would have an age adjusted D dimer cutoff of 880 ng/mL FEU. For patients with a suspected DVT, a D dimer level below 500 ng/mL FEU has a negative predictive value of >98.9%, a sensitivity of >96.9% and a specificity of >35.7%. For patients with a suspected PE, a D dimer level below 500 ng/mL FEU has a negative predictive value of >98.5%, and a sensitivity of >96.5% and a specificity of >38.8%. Reference: Jesenia M, et al. BILLY 2014 311:1117 and Robert Gonsalez et al. Gina Int Med 2016 165:253. Performed By: #### D DMER #### [place] [id number] ED NOTEon 02-20-2021 ED NOTE HNO ID: [id number] Author: Victoria cMneil RN Service: ? Author Type: Registered Nurse Type: ED Notes Filed: 02/20/2021 6:01 AM Note Text: F/u care and d/c instructions reviewed. Medication education given. Pt verbalized understanding. IV site d/c'd. VSS. Pt left ambulatory. [facility] ED NOTE HNO ID: [id number] Author: Victoria Mcneil RN Service: ? Author Type: Registered Nurse Type: ED Notes Filed: 02/20/2021 2:56 AM Note Text: XR at bedside [facility] ED NOTE HNO ID: [id number] Author: Nohelia Quintana RN Service: ? Author Type: Registered Nurse Type: ED Notes Filed: 02/20/2021 2:39 AM Note Text: Pt BIB [facility] for SOB. EMS gave duoneb treatments in the ambulance. Pt state the shortness of breath started about 2 hours ago. Pt stated he was visiting someone with cats which triggered his SOB. [facility] ED NOTE HNO ID: [id number] Author: Melisa Bethea RN Service: ? Author Type: Registered Nurse Type: ED Notes Filed: 02/20/2021 2:33 AM Note Text: Bed: ED-15 Expected date: Expected time: Means of arrival: Comments: ems [facility] ED PROV NOTEon 02-20-2021 ED PROV NOTE HNO ID: [id number] Author: Ren Mars MD Service: Emergency Medicine Author Type: Physician Type: ED Provider Notes Filed: 02/20/2021 6:03 AM Note Text: ED Provider Note Patient Name: Sabi Denis SERVICE DATE: 02/20/21 History Patient presents with: Shortness of Breath 55-year-old male with past medical history significant for hypertension, previous pneumothorax and history of allergies to cats presents to the emergency department complaining that he is short of breath. States that he went to visit the place where they have around 15 cats and he started getting short of breath. Denies any chest pain. States that he was given a breathing treatment by EMS. He had some chest tightness which resolved after the breathing treatment. States that he continues feeling short of breath but feels much better. No lightheadedness or diaphoresis. No abdominal pain. Denies any additional complaints. No history of blood clots. States that he used an inhaler a long time ago when he had a pneumothorax but has not used it since. He is a smoker and continues to smoke. Denies any recent illnesses or cold symptoms. No other alleviating or abating factors. Denies any additional complaints. PAST MEDICAL HISTORY Diagnosis Date - Hypertension - Pneumothorax History reviewed. No pertinent surgical history. No family history on file. Social History Tobacco Use - Smoking status: Current Every Day Smoker Packs/day: 1.00 Types: Cigarettes - Smokeless tobacco: Never Used Vaping Use - Vaping Use: Never used Substance and Sexual Activity - Alcohol use: Yes Comment: 3 days weekly- drink til I get drunk - Drug use: Not Currently Types: Marijuana - Sexual activity: Not on file ALLERGIES Allergen Reactions - Aspirin Anaphylaxis Review of Systems Constitutional: Negative for chills and fever. HENT: Negative for congestion. Respiratory: Positive for chest tightness (resolved) and shortness of breath. Cardiovascular: Negative for chest pain and leg swelling. Gastrointestinal: Negative for abdominal pain. Musculoskeletal: Negative for myalgias. Skin: Negative for rash. Neurological: Negative for light-headedness. Hematological: Does not bruise/bleed easily. Psychiatric/Behavioral: The patient is not nervous/anxious. Physical Exam BP 115/82 Pulse 85 Temp (Src) 97.7 (Oral) Resp 18 Wt 170 lb (77.1kg) SpO2 97% O2 Therapy: Room Air Physical Exam HENT: Head: Normocephalic and atraumatic. Eyes: Extraocular Movements: Extraocular movements intact. Pupils: Pupils are equal, round, and reactive to light. Cardiovascular: Rate and Rhythm: Normal rate and regular rhythm. Pulmonary: Effort: Pulmonary effort is normal. Breath sounds: Decreased breath sounds and wheezing present. Abdominal: General: Bowel sounds are normal. Palpations: Abdomen is soft. Skin: General: Skin is warm and dry. Neurological: General: No focal deficit present. Mental Status: He is alert. Psychiatric: Mood and Affect: Mood normal. Behavior: Behavior normal. Diagnostic Testing ED Labs Ordered and Reviewed CBC + AUTO DIFF (AK,AV,EU,FV,HL,ALEXIS,MM,SP) - Abnormal; Notable for the following components: Result Value Ref Range Abs [place] 1.03 (*) <0.87 k/uL Abs Eosin 0.62 (*) <0.46 k/uL Abs Baso 0.15 (*) <0.11 k/uL All other components within normal limits BASIC METABOLIC PANEL (AK,AV,EU,FV,HL,ALEXIS,MM,SP) - Abnormal; Notable for the following components: BUN 5 (*) 9 - 24 mg/dL Creatinine 0.72 (*) 0.73 - 1.22 mg/dL Sodium 126 (*) 136 - 144 mmol/L Potassium 3.5 (*) 3.7 - 5.1 mmol/L Chloride 82 (*) 97 - 105 mmol/L All other components within normal limits D-DIMER (AK,AV,EU,FV,HL,ALEXIS,MM,SP) - Abnormal; Notable for the following components: d Dimer 790 (*) <500 ng/mL FEU All other components within normal limits MAGNESIUM BLOOD (AK,AV,EU,FV,HL,ALEXIS,MM,SP) Procedures ED Course / Clinical Impression ED Course as of February 20 [id number] Ren Mars's Documentation Flor February 20, 2021 2137 ED EKG INTERPRETATION: Normal sinus rhythm at 95 beats per minute Normal axis Normal intervals Normal Q-T interval Normal ST-T segments Interpretation by ED physician Clinical Impressions as of Feb 20 553 Bronchospasm Hyponatremia Hypokalemia Elevated d-dimer MDM / Disposition / Plan Patient presents to the emergency department short of breath. He is a smoker but has no history of COPD or asthma. He is found to have significant bronchospasm and treated with multiple breathing treatments and steroids and lung priest cleared. Chest x-ray is negative. D-dimer was returned elevated and chest CT was obtained to rule out PE. It was negative. Patient found to be hyponatremic. Compared to previous blood work from a few days ago sodium dropped from 1 30-1 26. He is not symptomatic. At present time there is no need for admission to the hospital b (more content not included)... Normal [facility] Magnesiumon 02-20-2021 Magnesium [Mass/Vol] 1.7 mg/dL Normal 1.7-2.3 [facility] Comment on above: Performed By: #### MG1, CBCDIF, BMP #### [facility] [address] [place] [address] XR CHEST 1V FRONTAL PORTon 0 02-20-2021 XR CHEST 1V FRONTAL PORT * * *Final Report* * * DATE OF EXAM: Feb 20 2021 2:59AM LUX [id number] - XR CHEST 1V FRONTAL PORT / PROCEDURE REASON: Shortness of breath * * * * Physician Interpretation * * * * CHEST RADIOGRAPH: AP view of the chest. Exam Date/Time: 02/20/2021 2:59 AM Indication: Shortness of breath Comparison: Chest x-ray 02/17/2021 RESULTS: Lines, Tubes, and Devices: None Lungs and Pleura: The lungs are clear. No pleural effusion or pneumothorax. Cardiomediastinal silhouette: The mediastinal and cardiac silhouette are normal in size and contour. Other: Multiple old right rib fractures unchanged. IMPRESSION: No radiographic evidence of acute cardiopulmonary abnormality. Slip Cover Maker: RUDY Transcribe Date/Time: Feb 20 2021 3:02A Dictated by : BRUNA RAM MD This examination was interpreted and the report reviewed and electronically signed by: BRUNA RAM MD on Feb 20 2021 3:02AM EST [id number] [facility] Other 06-24-2020 Noninvasive colorectal cancer DNA and occult blood screening Ql (Stl) Negative Not Applicable -[facility] Internal Medicine Work Phone: Comment on above: [employer] (CLIA #:[id number])Jamaal NOGUERA KADEN. [facility] [id number] REMI SAVAGE , Ph.D., [facility] Clinical Laboratory Medical DirectorA negative result indicates a low likelihood that a colorectal cancer (CRC) or an advanced adenoma (adenomatous polyps with more advanced pre-malignant features) is present. The chance that a person with a negative Cologuard test has a colorectal cancer is less than 1 in 1500 (negative predictive value >99.9%) or has an advanced adenoma is less than 5.3% (negative predictive value 94.7%). These data are based on a prospective cross-sectional screening study of 10,000 individuals at average risk for colorectal cancer who were screened with both Cologuard and colonoscopy. (Nikki Wiggins et al, N Engl J Med 2014;370(14):2504-2727) The normal value (reference range) for this assay is negative. COLOGUARD RE-SCREENING RECOMMENDATION: Periodic routine colorectal cancer screening is an important part of preventive healthcare for asymptomatic persons at average risk for colorectal cancer. Following a negative Cologuard result, the [place] [employer] Society and U.S. Multi-Society Task Force screening guidelines recommend a Cologuard re-screening interval of 3 years. References: [place] [employer] (ACS). Colorectal cancer prevention and early detection. [place], [place]: [place] [employer]; [updated 2015Jan 18]. https://www.cancer.org/cancer/coejm-avsuzm-ouvqrd/detection-diagnosis- staging/acs-recommendations.html. Accessed May 27, 2018; [place] DK, Luisito CR, Yuliet FrancoK, Colorectal Cancer Screening: Recommendations for Physicians and Patients from the U.S. Multi-Society Task Force on Colorectal Cancer Screening, Am J Gastroenterology 2017; 112:0045-3831.TEST TYPE: Composite algorithmic analysis of stool DNA-biomarkers with hemoglobin immunoassay. Quantitative values of individual biomarkers are not reportable and are not associated with individual biomarker result reference ranges.PRECAUTIONS AND LIMITATIONS: Cologuard is intended for colorectal cancer screening of adults of either sex, 45 years or older, who are at average-risk for colorectal cancer (CRC). Cologuard has been approved for use by the U.S. FDA. Cologuard may produce a false negative or false positive result. A negative Cologuard test result does not guarantee the absence of CRC or advanced adenoma (pre-cancer). Patients with a negative Cologuard test result should be advised to continue participating in a colorectal cancer screening program. The screening interval for Cologuard is currently recommended at an interval of every 3 years by the [place] [employer] Society and U.S. Multi-Society Task Force. A false positive result occurs when Cologuard produces a positive result, even though a colonoscopy may not find colorectal cancer or precancerous polyps. The performance of Cologuard has been established in a cross sectional study (i.e., single point in time) of average-risk adults aged 50-84. Cologuard performance in patients ages 45 to 49 years was estimated by sub-group analysis of near-age groups. Cologuard performance data in a 10,000 patient pivotal study using colonoscopy as the reference method can be accessed at the following location: www.[employer]/results. Additional description of the Cologuard test process, warnings and precautions can be found at www.cologuardtest.com. Rx only. Hematologyon 05-29-2020 Hematocrit (Bld) [Volume fraction] 43.3 % See Below [facility] Work Phone: Comment on above: Reference Range: 41.0 - 52.0 Hemoglobin (Bld) [Mass/Vol] 14.9 g/dL See Below [facility] Work Phone: Comment on above: Reference Range: 13.5 - 17.5 MCV (RBC) [Entitic vol] 98 fL 80 - 100 [facility] Work Phone: Platelets (Bld) [#/Vol] 357 {x10E9/L} 150 - 450 [facility] Work Phone: RBC (Bld) [#/Vol] 4.43 {x10E12/L} below low threshold See Below [facility] Work Phone: Comment on above: Reference Range: 4.50 - 5.90 WBC (Bld) [#/Vol] 5.7 {x10E9/L} 4.4 - 11.3 [facility] Work Phone: WBC (Bld) [#/Vol] 0.0 {/100_WBC} 0.0-0.0 [facility] Work Phone: Lipid Panelon 05-29-2020 Cholesterol [Mass/Vol] 163 mg/dL 0 - 199 [facility] Work Phone: Comment on above: . AGE DESIRABLE BORDERLINE HIGH HIGH 0-1 9 Y 0 - 169 170 - 199 >/= 200 20-24 Y 0 - 189 190 - 224 >/= 225 >24 Y 0 - 199 200 - 239 >/= 240 All ranges are based on fasting samples. Specific therapeutic targets will vary based on patient-specific cardiac risk.. Pediatric guidelines reference:Pediatrics 2011, 128(S5). Adult guidelines reference: NCEP ATPIII Guidelines, BILLY 2001, 258:2486-97. Venipuncture immediately after or during the administration of Metamizole may lead to falsely low results. Testing should be performed immediately prior to Metamizole dosing. Cholesterol in HDL [Mass/Vol] 62.5 mg/dL [facility] Work Phone: Comment on above: . AGE VERY LOW LOW NORMAL HIGH 0-19 Y < 35 < 40 40-45 ---- 20-24 Y ---- < 40 >45 ---- >24 Y ---- < 40 40-60 >60. Cholesterol in LDL [Mass/Vol] 81 mg/dL 0 - 99 [facility] Work Phone: Comment on above: . NEAR BORD AGE DESIRABLE OPTIMAL HIGH H IGH VERY HIGH 0-19 Y 0 - 109 --- 110-129 >/= 130 ---- 20-24 Y 0 - 119 --- 120-159 >/= 160 ---- >24 Y 0 - 99 100-129 130-159 160-189 >/=190. Cholesterol.tot al/Cholesterol in HDL [Mass ratio] 2.6 {ratio} [facility] Work Phone: Comment on above: REF VALUESDESIRABLE < 3.4HIGH RISK > 5.0 Triglyceride [Mass/Vol] 98 mg/dL 0 - 149 [facility] Work Phone: Comment on above: . AGE DESIRABLE BORDERLINE HIGH HIGH ALISHA Y HIGH 0 D-90 D 19 - 174 ---- ---- ----91 D- 9 Y 0 - 74 75 - 99 >/= 100 ---- 10-19 Y 0 - 89 90 - 129 >/= 130 ---- 20-24 Y 0 - 114 115 - 149 >/= 150 ---- >24 Y 0 - 149 150 - 199 200- 499 >/= 500. Venipuncture immediately after or during the administration of Metamizole may lead to falsely low results. Testing should be performed immediately prior to Metamizole dosing. Lipid Panel 20 mg/dL 0 - 40 [facility] Work Phone: Metabolic Panelon 05-29-2020 ALP [Catalytic activity/Vol] 52 U/L 33 - 120 [facility] Work Phone: Anion gap [Moles/Vol] 14 mmol/L 10 - 20 [facility] Work Phone: Bilirubin [Mass/Vol] 0.6 mg/dL 0.0 - 1.2 [facility] Work Phone: Calcium [Mass/Vol] 9.6 mg/dL 8.6 - 10.6 [facility] Work Phone: Chloride [Moles/Vol] 89 mmol/L below low threshold 98 - 107 [facility] Work Phone: CO2 [Moles/Vol] 31 mmol/L 21 - 32 [facility] Internal Medicine Work Phone: Creatinine [Mass/Vol] 0.75 mg/dL See Below [facility] Work Phone: Comment on above: Reference Range: 0.50 - 1.30 Glucose [Mass/Vol] 79 mg/dL 74 - 99 [facility] Work Phone: Potassium [Moles/Vol] 4.7 mmol/L 3.5 - 5.3 [facility] Work Phone: Protein [Mass/Vol] 7.7 g/dL 6.4 - 8.2 [facility] Work Phone: Sodium [Moles/Vol] 129 mmol/L below low threshold 136 - 145 [facility] Work Phone: Urea nitrogen [Mass/Vol] 10 mg/dL 6 - 23 [facility] Work Phone: Otheron 05-29-2020 Albumin BCP dye [Mass/Vol] 4.7 g/dL 3.4 - 5.0 [facility] Work Phone: ALT With P-5'-P [Catalytic activity/Vol] 61 U/L above high threshold 10 - 52 [facility] Work Phone: Comment on above: Patients treated with Sulfasalazine may generate falsely decreased results for ALT. AST With P-5'-P [Catalytic activity/Vol] 40 U/L above high threshold 9 - 39 [facility] Work Phone: Erythrocyte distribution width (RBC) [Ratio] 14.4 % See Below [facility] Work Phone: Comment on above: Reference Range: 11.5 - 14.5 MCHC (RBC) [Mass/Vol] 34.4 g/dL See Below [facility] Work Phone: Comment on above: Reference Range: 32.0 - 36.0 >60 >60 [facility] Work Phone: Comment on above: CALCULATIONS OF ESTIMATED GFR ARE PERFOR MED USING THE MDRD STUDY EQUATION FOR THE IDMS-TRACEABLE CREATININE METHODS. CLIN CHEM 2007;53:766-72 TSH - Thyroid Stimulating Ho rmone, Serumon 05-29-2020 TSH Qn 0.83 {mIU/L} See Below [facility] Work Phone: Comment on above: Reference Range: 0.44 - 3.98 TSH testing is performed using different testing methodology at [facility] than at other [facility]. Direct result comparisons should only be made within the same method. Urinalysison 05-29-2020 Appearance (U) CLEAR CLEAR [facility] Work Phone: Color (U) STRAW See Below [facility] Work Phone: Comment on above: Reference Range: STRAW,YELLOW Glucose Ql (U) Negative NEGATIVE [facility] Work Phone: Ketones Ql (U) Negative NEGATIVE [facility] Work Phone: Leukocyte esterase Test strip Ql (U) Negative NEGATIVE [facility] Work Phone: pH (U) 7.0 [pH] 5.0 - 8.0 [facility] Work Phone: Protein (U) [Mass/Vol] Negative NEGATIVE [facility] Work Phone: RBC (U) [#/Vol] Negative NEGATIVE [facility] Work Phone: Specific gravity (U) [Rel density] 1.004 below low threshold See Below [facility] Work Phone: Comment on above: Reference Range: 1.005 - 1.035 Urinalysis <2.0 0.0 - 1.9 [facility] Work Phone: Urinalysis Negative NEGATIVE [facility] Work Phone: ED Physician Reporton 2017 ED Physician Report Patient: SABI DENIS Age: 52 years Sex: Male : 1965 Associated Diagnoses: Compression fracture of L1 lumbar vertebra; Chest wall contusion Author: LAQUITA MAYER CNP Basic Information Time seen: Time Seen:LAQUITA MAYER CNP / 10/04/2017 19:14. History source: Patient. Arrival mode: Private vehicle. History limitation: None. History of Present Illness The patient presents with trunk-chest injury. The onset was 2 days ago. The course/duration of symptoms is constant. Location: left, anterior, lateral chest. Type of injury: fall. The character of symptoms is pain. The location where the incident occurred was at home. The degree of pain is moderate. The degree of bleeding is none. There are exacerbating factors including movement and breathing. The relieving factor is rest. Risk factors consist of alcohol abuse. Therapy today: none. Associated symptoms: shortness of breath. 52-year-old male presents with LEFT trunk pain status post fall occurring Wednesday night. Patient states he was on his porch when his daughter came outside and scared him, causing him to fall over the railing approximately 3 feet. Patient states he landed on his LEFT side. Reports LEFT trunk pain since that time. Pain increases with deep inspiration, movement, coughing, sneezing, palpation. Does report feelings of shortness of breath. Denies chest pain otherwise. Patient does report onset of productive cough 2 days ago. Denies fever. No other symptoms reported. Patient speaking in complete sentences without distress. Denies neck and back pain. No focal weakness. No numbness or tingling. No loss of bowel or bladder function. Review of Systems Constitutional symptoms: Negative except as documented in HPI, no fever, no chills. Skin symptoms: Negative except as documented in HPI, No rash, Eye symptoms: Negative except as documented in HPI. ENMT symptoms: Negative except as documented in HPI. Respiratory symptoms: Negative except as documented in HPI, no shortness of breath, no cough. Cardiovascular symptoms: Negative except as documented in HPI, LEFT lateral chest wall pain, no chest pain, no palpitations. Gastrointestinal symptoms: Negative except as documented in HPI, no abdominal pain, no nausea, no vomiting, no diarrhea, no constipation. Genitourinary symptoms: Negative except as documented in HPI. Musculoskeletal symptoms: Negative except as documented in HPI, No back pain, Psychiatric symptoms: Negative except as documented in HPI. Endocrine symptoms: Negative except as documented in HPI. Hematologic/Lymphatic symptoms: Negative except as documented in HPI. Allergy/immunologic symptoms: Negative except as documented in HPI. Neurologic symptoms Negative except as documented in HPI, no headache, no dizziness. Additional review of systems information: All other systems reviewed and otherwise negative. Health Status Allergies: Allergic Reactions (Selected)Severity Not DocumentedAspirin- No reactions were documented.. Medications: (Selected) Documented MedicationsDocumentedlisinopril 20 mg oral tablet: 20 mg, 1 tabs, ORAL, DAILY, 0 Refill(s)traMADol 50 mg oral tablet: 50 mg, 1 tabs, ORAL, [id number], PRN: as needed for pain, 0 Refill(s). Immunizations: Per nurse's notes. Past Medical/ Family/ Social History Medical history: Hypertension. Surgical history: Video Assisted Thorascopic Surgery (VATS). ([id number]) on 12/18/2015 at 50 Years.hernia repair.. Family history: Heart attack....Brother. Social history: Alcohol use: Regularly. Problem list: Active Problems (6)At risk for falls ETOH dependence Fracture HTN (hypertension) Nutritional deficiencies Pain . Physical Examination Vital Signs Vital Signs 10/04/2017 19:15 EST Temperature Oral 36.7 degC NORMAL Peripheral Pulse Rate 93 bpm NORMAL Respiratory Rate 20 br/min NORMAL Systolic Blood Pressure 161 mmHg HI Diastolic Blood Pressure 98 mmHg HI SpO2 99 % NORMAL Oxygen Therapy Room air Height/Length Dosing 182.88 cm Weight Dosing 75 kg Body Mass Index Dosing 22 . Per nurse's notes. General: Alert, no acute distress. Skin: Warm, dry, pink, no rash. Head: Normocephalic, atraumatic. Neck: Supple, trachea midline, no tenderness, no step offs, full range of motion. Eye: Vision grossly normal. Ears, nose, mouth and throat: Oral mucosa moist. Cardiovascular: Regular rate and rhythm, No murmur, Normal peripheral perfusion. Respiratory: Lungs are clear to auscultation, respirations are non-labored, breath sounds are equal, Symmetrical chest wall expansion. Chest wall: No deformity, On exam: Left, anterior, lateral, inferior, mild, tenderness, reproduces complaint, no crepitus, no deformity. Back: Nontender, Normal range of motion, Normal alignment, no step-offs, No midline bony tenderness, deformities, or step-offs of the thoracic or lumbar spine. Musculoskeletal: Normal ROM, normal strength, no tenderness, no swelling. Gastrointestinal: Soft, Nontender, Non distended, Normal bowel sounds, No tenderness to deep palpation of the bilateral upper quadrants. Psychiatric: Cooperative, appropriate mood & affect. Neurological Alert and oriented to person, place, time, and situation, No focal neurological deficit observed, normal sensory observed, normal motor observed, normal speech observed, normal coordination observed. Medical Decision Making Rationale: No acute rib fractures noted. Chronic-appearing compression fracture of L1 present on CT imaging. Patient states several months ago he went to sit down on the bed and missed his seat, causing him to fall straight on the floor. Patient states this may have been the cause of the compression fracture when directly asked. Patient continues to deny back pain and neurological deficits. Patient has no pneumothorax or pneumonia noted on imaging scans. Vital signs remain within normal limits. Patient in no distress of any kind. Due to patient's history of excessive alcohol use will not prescribe tramadol or any other opioids for pain. Patient will be prescribed Naprosyn and may take Tylenol as needed. Discussed appropriate follow-up with Dr. Oliver for the compression fracture and his family doctor for any recurrent chest wall pain. Discussed in detail importance of taking frequent deep breaths to prevent atelectasis, pneumonia. Patient verbalizes understanding and comfortable with plan of care. Documents reviewed: Emergency department nurses' notes. Results review: Lab results : Laboratory 10/04/2017 20:38 EST Estimated Creatinine Clearance 138.57 mL/min 10/04/2017 19:55 EST BUN 3 mg/dL LOW Na 130 mmol/L LOW K 3.4 mmol/L LOW Chloride 93 mmol/L LOW CO2, venous 28.6 mmol/L NORMAL Glucose 91 mg/dL NORMAL Creatinine 0.7 mg/dL NORMAL Total Protein 8.7 g/dL HI Calcium 8.5 mg/dL NORMAL Bilirubin, Total 0.53 mg/dL NORMAL Alk Phos 72 unit/L NORMAL GOT 135 unit/L HI GPT 100 unit/L HI BUN/Creat Ratio 4.2 NA Calculated Osmolality 257 mOsm/kg LOW Globulin 4.5 g/dL NA A/G Ratio 0.9 NA ALB 4.2 g/dL NORMAL Glomerular Filtration Rate >60 mL/min/1.73m? NA GFR AA >60 NA WBC 6.2 x10 RBC 4.29 x10 HGB 15.2 g/dL NORMAL HCT 43.9 % NORMAL MCV 102.2 fL HI MCH 35.4 pg HI MCHC 34.6 g/dL NORMAL RDW 13.7 NORMAL Platelet 267 x1000 NORMAL MPV 7.6 fL NORMAL Nucleated RBC% 0 /100WC NA Lymph % 23.5 % NA [place] % 14.1 % NA Neutrophil % 59.5 % NA Eosin % 2.1 % NA Basos % 0.8 % NA Lymph Count 1.45 x1000 NORMAL [place] Count 0.87 x1000 NORMAL Neutrophil Count (ANC) 3.67 x1000 NORMAL Eos Count 0.13 x1000 NORMAL Baso Count 0.05 x1000 NORMAL . Radiology results: * Final Report *Reason For ExamINJURYReportLeft ribs, 4 views.Clinical information: Injury; left lower anterior rib pain after fall.4 views of the left ribs show a remote healed fracture deformityinvolving the posterolateral aspect of the left seventh rib, unchangedfrom a chest x-ray of 01/01/2016. No other fracture or lytic or blasticchange is noted.IMPRESSION: Remote fracture deformity involving the left seventh rib.No apparent acute fracture of the left ribs., * Final Report *Reason For ExamTRAUMAReportCT scan of the chest with intravenous contrast, with coronal andsagittal reformatted images.Clinical information: Trauma; fall; left-sided rib pain; shortness ofbreath, cough.In comparison with the study of 12/17/2015, the opacified pulmonaryarteries show no obstruction or intraluminal filling defects. Theaorta shows no dilatation or dissection. There is no evidence ofmediastinal hemorrhage or hematoma. There is no apparent hilar ormediastinal mass or adenopathy or axillary adenopathy. There is mildbilateral gynecomastia.There is centrilobular emphysema, more prominent within the upperlobes. The lungs are clear, without parenchymal nodules, masses, orinfiltrates. There is no pleural or pericardial effusion. There is asevere compression fracture involving the body of L1, not present onthe CT scan of the chest of 12/17/2015. There is sclerotic changesuggesting that this is a chronic fracture. There is some retropulsionof the posterior superior aspect of the vertebral body. There is alsoa mild superior endplate compression fracture of the body of T9,present on the prior study. There are remote fracture deformitiesinvolving the posterolateral aspect of the left seventh rib andlateral aspect of the left eighth rib. No apparent acute rib fractureis seen. There is no evidence of a pneumothorax. The visualized upperabdominal structures show diffuse fatty infiltration of the liver.IMPRESSION: No evidence of pulmonary embolus or aortic dissection ordilatation. Centrilobular emphysema. Severe compression fractureinvolving the body of L1, not present on 12/17/2015, but probablychronic in appearance. Chronic mild superior endplate compression ofthe body of T9. Remote fracture deformities of the left seventh andeighth ribs., * Final Report *Reason For ExamTRAUMAReportCT scans of the abdomen and pelvis with intravenous contrast, withoutoral contrast, with coronal and sagittal reformatted images.Clinical information: Trauma; fall; left-sided rib pain; shortness ofbreath; cough.The visualized lung bases are clear. There is diffuse fattyinfiltration of the liver. The liver, spleen, gallbladder, pancreas,kidneys, and adrenal glands are normal. There are no enlargedretroperitoneal lymph nodes. The aorta is not dilated.The stomach is normal. There are multiple fluid-filled small bowelloops within the pelvis, without wall thickening or dilatation.. Thereare no pericolic inflammatory changes. The appendix is normal. Thereis no free air or free fluid within the abdomen. The pelvic structuresare otherwise unremarkable. There is a severe, chronic appearingcompression fracture involving the body of L1. There is degenerativechange in the lower lumbosacral spine. There are no apparent lytic orblastic changes.IMPRESSION: Diffuse fatty infiltration of the liver. Fluid-filled midand distal small bowel loops without wall thickening or dilatation.This might be indicative of enteritis. No pericolic or periappendicealinflammatory changes. Chronic appearing compression fracture of L1.. Reexamination/ Reevaluation Vital signs results included from flowsheet : Vital Signs 10/04/2017 22:13 EST Temperature Oral 36.6 degC NORMAL Peripheral Pulse Rate 70 bpm NORMAL Respiratory Rate 18 br/min NORMAL Systolic Blood Pressure 152 mmHg HI Diastolic Blood Pressure 97 mmHg HI SpO2 97 % NORMAL Oxygen Therapy Room air Notes: Discussed today's findings, in addition to providing specific details for the plan of care and counseling regarding the diagnosis and prognosis. Discussed the return indications and importance of follow-up. Questions are answered, The patient was noted to have a blood pressure greater than 120/80, which may indicate hypertension. The patient was counseled to follow up with Primary Care Physician as listed on discharge instructions for a blood pressure recheck. Patient verbalizes understanding.. Impression and Plan Diagnosis Compression fracture of L1 lumbar vertebra ([id number] S32.010A, Discharge, Medical) Chest wall contusion ([id number] S20.219A, Discharge, Medical) Plan Condition: Stable. Disposition: Discharged: to home. Prescriptions: Launch Meds List (Selected) PrescriptionsPrescribedNaprosyn 500 mg oral tablet: 500 mg = 1 tabs, ORAL, BID, for 10 days, 20 tabs, 0 Refill(s). Patient was given the following educational materials: Spinal Compression Fracture. Follow up with: GURVINDER OLIVER Within 3 to 5 days Take prescribed medication as needed for discomfort.May also take Tylenol.Follow-up with Dr. Oliver regarding her compression fracture.Continue to take deep breaths frequently.Return to ED if worse or any concerns.; MARII BALES Within 3 to 5 days. Counseled: Patient, Regarding diagnosis, Regarding diagnostic results, Regarding treatment plan, Patient indicated understanding of instructions. Addendum I personally evaluated and examined the patient in conjunction with the MLP and agree with the assessment, treatment plan and disposition of the patient as recorded by the MLP.Electronically Signed by: Flor MAYER CNP 10/05/2017 00:36Electronically Co-Signed by: Jacob BARLOW DO 10/05/2017 15:05 Normal [facility] ED Progress Noteon 8 ED Progress Note PT COMES TO ED FROM HOME WITH C/O LEFT SIDED RIB PAIN S/P A FALL 2 DAYS AGO. PT STATES HE SLIPPED ON ICE ON HIS PORCH AND FELL DOWN ONTO HIS LIEFT SIDE. PT STATES THE PAIN IS WORSE WITH COUGHING AND DEEP INSPIRATION. ASSESSMENT CHARTED. AVSS.LAQUITA HOBBS AT BEDSIDE FOR [id number] IV SITE OBTAINED AND LABS [id number]- PT TO CT [id number]- IV FLUIDS INFUSING. PT WITH NO NEEDS AT THIS [id number]- LAQUITA HOBBS AT BEDSIDE FOR REEVAL. D/C INSTRUCTIONS REVIEWED WITH PT, VERBALIZES UNDERSTANDING. PT AMBULATED OUT WITH ALL BELONGINGS. SAFETY MAINTAINED IN ER Normal [facility] AUTO DIFFon 10-04-2017 Basophils Auto #/vol (Bld) 0.05 x1000 Normal 0.00-0.20 [facility] Comment on above: Performed By: #### [id number], [id number], 1161 34 ####[facility] [address]jlcwp64[address] [place] [address] Medical Director: Mo Cristobal MD Basos % 0.8 % Normal [facility] Comment on above: Performed By: #### [id number], [id number], 1161 34 ####[facility] Qxrmoonq18269 [place] [address] Medical Director: Mo Cristobal MD Eos Count 0.13 x1000 Normal 0.00-0.50 [facility] Comment on above: Performed By: #### [id number], [id number], 1161 34 ####[facility] T[address]axxc70492 [place] [address] Medical Director: oM Cristobal MD Eosinophils/100 leukocytes 2.1 % Normal [facility] Comment on above: Performed By: #### 431115, [id number], 1161 34 ####[facility] [address]emvsycc52842 [place] [address] Medical Director: Mo Cristobal MD Lymphocytes 1.45 x1000 Normal 1.20-4.80 [facility] Comment on above: Performed By: #### 362197, 7565116, 1161 34 ####[facility] X[address]gfsh78742 [place] [address] Medical Director: Mo Cristobal MD Lymphocytes/100 leukocytes 23.5 % Normal [facility] Comment on above: Performed By: #### 767167, 6770208, 1161 34 ####[facility] [address]qoa69587 [place] [address] Medical Director: Mo Cristobal MD [place] Count 0.87 x1000 Normal 0.10-1.00 [facility] Comment on above: Performed By: #### 630309, [id number], 1161 34 ####[facility] [address]valkng28949 [place] [address] Medical Director: Mo Cristobal MD Monocytes/100 leukocytes 14.1 % Normal [facility] Comment on above: Performed By: #### 305351, [id number], 1161 34 ####[facility] [address]zcnfpjm11557 [place] [address] Medical Director: Mo Cristobal MD Neutrophils 3.67 x1000 Normal 1.40-8.80 [facility] Comment on above: Performed By: #### 391359, 7299157, 1161 34 ####[facility] [address]ufiyvr274[address] [place] [address] Medical Director: Mo Cristobal MD Neutrophils/100 WBC Auto (Bld) 59.5 % Normal [facility] Comment on above: Performed By: #### 847477, [id number], 1161 34 ####[facility] [address] [place] [address] Medical Director: Mo Cristobal MD COMPMETAon 10-04-2017 Globulin 4.5 g/dL Normal [facility] Comment on above: Performed By: #### 760119, [id number], 1161 34 ####[facility] Theamnuq74050 [place] [address] Medical Director: Mo Cristobal MD Osmolality 257 mOsm/kg Low 275-295 [facility] Comment on above: Performed By: #### 234409, 2401591, 1161 34 ####[facility] Gmzdcyag32288 [place] [address] Medical Director: Mo Cristobal MD eGFR (non-black) mL/min/{1.73_m2} Normal [facility] Comment on above: Result Comment: GFR Gildardo c Performed By: #### 1 24721, [id number], 902486 ####[facility] [address]qdbmpif[address]74 [place] [address] Medical Director: Mo Cristobal MD Result Comment: Non GFR CalcMedical judgement is necessary to interpret GFR. The calculated GFR may not accurately reflect renal status in patients >70 years, women, acutely ill hospitalized patients and patients with acute renal failure or known renal disease.Note:Creatinine clearance (not GFR) should be used for drug dosing. Albumin/Globuli n Ratio 0.9 {ratio} Normal [facility] Comment on above: Performed By: #### 421980, [id number], 1161 34 ####[facility] Jgbidela52107 [place] [address] Medical Director: Mo Cristobal MD BUN/Creatinine Ratio 4.2 mg/mg Normal [facility] Comment on above: Performed By: #### 253157, 0565444, 1161 34 ####[facility] Xwyxdite64154 [place] [address] Medical Director: Mo Cristobal MD Alk Phos 72 unit/L Normal 45-117 [facility] Comment on above: Performed By: #### 970784, 8048773, 1161 34 ####[facility] Xltjowpz01824 [place] [address] Medical Director: Mo Cristobal MD Protein 8.7 g/dL High 6.0-8.5 [facility] Comment on above: Performed By: #### 365691, 5391045, 1161 34 ####[facility] [address]tk[address]pcp92721 [place] [address] Medical Director: Mo Cristobal MD Bilirubin (total) 0.53 mg/dL Normal 0.20-1.00 [facility] Comment on above: Performed By: #### 058403, 3889296, 1161 34 ####[facility] Hdipbmeg47336 [place] [address] Medical Director: Mo Cristobal MD GPT 100 unit/L High 16-61 [facility] Comment on above: Result Comment: Venipuncture should occu r prior to sulfasalazine and/or sulfapyridine administration due to the potential for falsely depressed results.Baseline assay values before administration of sulfasalazine and sulfapyridine therapy would not be affected. Performed By: #### 1 74860, 9071505, 210933 ####[facility] [address]vjgzzm56208 [place] [address] Medical Director: Mo Cristobal MD Creatinine 0.7 mg/dL Normal 0.7-1.3 [facility] Comment on above: Performed By: #### 633235, 1791295, 1161 34 ####[facility] [address]onwvltt[address]10 [place] [address] Medical Director: Mo Cristobal MD GOT 135 unit/L High 15-37 [facility] Comment on above: Result Comment: Venipuncture should occu r prior to sulfasalazine and/or sulfapyridine administration due to the potential for falsely depressed results.Baseline assay values before administration of sulfasalazine and sulfapyridine therapy would not be affected. Performed By: #### 1 60541, 8821624, 260815 ####[facility] [address]uq81761 [place] [address] Medical Director: Mo Cristobal MD Glucose mass conc 91 mg/dL Normal 72-100 [facility] Comment on above: Result Comment: Venipuncture should occu r prior to sulfasalazine administration due to the potential for falsely depressed results. Venipuncture should occur prior to sulfapyridine administration due to the potential falsely elevated results.Baseline assay values before administration of sulfasalazine and sulfapyridine therapy would not be affected. Performed By: #### 1 17905, [id number], 441458 ####[facility] [address] [place] 7110830 Medical Director: Mo Cristobal MD Urea nitrogen 3 mg/dL Low 10-20 [facility] Comment on above: Performed By: #### 365370, 8171323, 1161 34 ####[facility] [address]xy[address]vc[address] [place] [address] Medical Director: Mo Cristobal MD Albumin 4.2 g/dL Normal 3.4-5.0 [facility] Comment on above: Performed By: #### 559884, 4255567, 1161 34 ####[facility] [address]seqgyzu70326 [place] [address] Medical Director: Mo Cristobal MD Calcium 8.5 mg/dL Normal 8.5-10.5 [facility] Comment on above: Performed By: #### 562444, 2320904, 1161 34 ####[facility] [address]am40324 [place] [address] Medical Director: Mo Cristobal MD CO2 28.6 mmol/L Normal 21.0-32.0 [facility] Comment on above: Performed By: #### 763429, 2710680, 1161 34 ####[facility] [address]ucw[address]0422 [place] [address] Medical Director: Mo Cristobal MD Potassium molar conc 3.4 mmol/L Low 3.5-5.1 [facility] Comment on above: Performed By: #### 544691, 5872478, 1161 34 ####[facility] [address]cgmpuup17202 [place] [address] Medical Director: Mo Cristobal MD Sodium 130 mmol/L Low 135-145 [facility] Comment on above: Performed By: #### 798131, 7298308, 1161 34 ####[facility] [address]vyq19[address] [place] [address] Medical Director: Mo Cristobal MD Chloride 93 mmol/L Low 100-109 [facility] Comment on above: Performed By: #### 754689, 2786511, 1161 34 ####[facility] [address]rtwxsqo44983 [place] [address] Medical Director: Mo Cristobal MD CT ABD PELVIS W IV CONTRASTo n 10-04-2017 CT ABD PELVIS W IV CONTRAST CT scans of the abdomen and pelvis with intravenous contrast, withoutoral contrast, with coronal and sagittal reformatted images.Clinical information: Trauma; fall; left-sided rib pain; shortness ofbreath; cough.The visualized lung bases are clear. There is diffuse fattyinfiltration of the liver. The liver, spleen, gallbladder, pancreas,kidneys, and adrenal glands are normal. There are no enlargedretroperitoneal lymph nodes. The aorta is not dilated.The stomach is normal. There are multiple fluid-filled small bowelloops within the pelvis, without wall thickening or dilatation.. Thereare no pericolic inflammatory changes. The appendix is normal. Thereis no free air or free fluid within the abdomen. The pelvic structuresare otherwise unremarkable. There is a severe, chronic appearingcompression fracture involving the body of L1. There is degenerativechange in the lower lumbosacral spine. There are no apparent lytic orblastic changes.IMPRESSION: Diffuse fatty infiltration of the liver. Fluid-filled midand distal small bowel loops without wall thickening or dilatation.This might be indicative of enteritis. No pericolic or periappendicealinflammatory changes. Chronic appearing compression fracture of L1.Technologist: [facility],TMCDictated By: Andria JUSTICE MDed By: Minerva JUSTICE MD Out: 10/04/17 21:54:33 Normal [facility] CT LUNG MEDIASTINUM W CONTRS Ton 10-04-2017 CT LUNG MEDIASTINUM W CONTRST CT scan of the chest with intravenous contrast, with coronal andsagittal reformatted images.Clinical information: Trauma; fall; left-sided rib pain; shortness ofbreath, cough.In comparison with the study of 12/17/2015, the opacified pulmonaryarteries show no obstruction or intraluminal filling defects. Theaorta shows no dilatation or dissection. There is no evidence ofmediastinal hemorrhage or hematoma. There is no apparent hilar ormediastinal mass or adenopathy or axillary adenopathy. There is mildbilateral gynecomastia.There is centrilobular emphysema, more prominent within the upperlobes. The lungs are clear, without parenchymal nodules, masses, orinfiltrates. There is no pleural or pericardial effusion. There is asevere compression fracture involving the body of L1, not present onthe CT scan of the chest of 12/17/2015. There is sclerotic changesuggesting that this is a chronic fracture. There is some retropulsionof the posterior superior aspect of the vertebral body. There is alsoa mild superior endplate compression fracture of the body of T9,present on the prior study. There are remote fracture deformitiesinvolving the posterolateral aspect of the left seventh rib andlateral aspect of the left eighth rib. No apparent acute rib fractureis seen. There is no evidence of a pneumothorax. The visualized upperabdominal structures show diffuse fatty infiltration of the liver.IMPRESSION: No evidence of pulmonary embolus or aortic dissection ordilatation. Centrilobular emphysema. Severe compression fractureinvolving the body of L1, not present on 12/17/2015, but probablychronic in appearance. Chronic mild superior endplate compression ofthe body of T9. Remote fracture deformities of the left seventh andeighth ribs.Technologist: EVANGELINA ROBERTSONCDictated By: Andria JUSTICE MDed By: Minerva JUSTICE MD Out: 10/04/17 21:41:09 Normal [facility] CT LUNG MEDIASTINUM WO CONTR STon 10-04-2017 CT LUNG MEDIASTINUM WO CONTRST FINAL REPORTEXAM: CT LUNG MEDIASTINUM WO CONTRSTHISTORY: CHEST PAIN SOB HX OF PNEUMOTHORAX NO CA COMPARISON: Chest x-ray from the same date. TECHNIQUE: Contiguous axial images were obtained. Additional sagittal and coronal reformatted images were obtained. FINDINGS: Heart normal in size. Thoracic aorta normal in caliber. There is extensive pneumomediastinum and subcutaneous gas along the chest wall. New most mediastinum is not extend into the abdominal cavity. Moderate right-sided pneumothorax approximately 30-40 percent lung volume. No shifting of mediastinal structures compared to prior study to suggest tension pneumothorax. Tracheobronchial tree remains patent. Moderate emphysema. Linear atelectasis within the lower lungs. Bony thorax is grossly intact. Visualized upper abdomen is grossly unremarkable. IMPRESSION: Moderate right-sided pneumothorax approximately 30-40 percent lung volume. No shifting of mediastinal structures to suggest tension pneumothorax at this time. Extensive subcutaneous emphysema pneumomediastinum. Moderate emphysema. Prominent blebs at the lung apices. Mild linear atelectasis within the lower lungs. ADDENDUM FINAL REPORTFindings discussed with Dr. Meza on December 17, 2015 at 0157 hours EST. Technologist: TMPDictated By: Livia ANTHONY DO By: Livia ANTHONY DO Out: 10/04/17 19:50:47FINAL REPORTEXAM: CT LUNG MEDIASTINUM WO CONTRSTHISTORY: CHEST PAIN SOB HX OF PNEUMOTHORAX NO CA COMPARISON: Chest x-ray from the same date. TECHNIQUE: Contiguous axial images were obtained. Additional sagittal and coronal reformatted images were obtained. FINDINGS: Heart normal in size. Thoracic aorta normal in caliber. There is extensive pneumomediastinum and subcutaneous gas along the chest wall. New most mediastinum is not extend into the abdominal cavity. Moderate right-sided pneumothorax approximately 30-40 percent lung volume. No shifting of mediastinal structures compared to prior study to suggest tension pneumothorax. Tracheobronchial tree remains patent. Moderate emphysema. Linear atelectasis within the lower lungs. Bony thorax is grossly intact. Visualized upper abdomen is grossly unremarkable. IMPRESSION: Moderate right-sided pneumothorax approximately 30-40 percent lung volume. No shifting of mediastinal structures to suggest tension pneumothorax at this time. Extensive subcutaneous emphysema pneumomediastinum. Moderate emphysema. Prominent blebs at the lung apices. Mild linear atelectasis within the lower lungs. ADDENDUM FINAL REPORTFindings discussed with Dr. Meza on December 17, 2015 at 0157 hours EST. Technologist: TMPDictated By: Livia ANTHONY DO By: Livia ANTHONY DO Out: 12/17/15 01:58:36FINAL REPORTEXAM: CT LUNG MEDIASTINUM WO CONTRSTHISTORY: CHEST PAIN SOB HX OF PNEUMOTHORAX NO CA COMPARISON: Chest x-ray from the same date. TECHNIQUE: Contiguous axial images were obtained. Additional sagittal and coronal reformatted images were obtained. FINDINGS: Heart normal in size. Thoracic aorta normal in caliber. There is extensive pneumomediastinum and subcutaneous gas along the chest wall. New most mediastinum is not extend into the abdominal cavity. Moderate right-sided pneumothorax approximately 30-40 percent lung volume. No shifting of mediastinal structures compared to prior study to suggest tension pneumothorax. Tracheobronchial tree remains patent. Moderate emphysema. Linear atelectasis within the lower lungs. Bony thorax is grossly intact. Visualized upper abdomen is grossly unremarkable. IMPRESSION: Moderate right-sided pneumothorax approximately 30-40 percent lung volume. No shifting of mediastinal structures to suggest tension pneumothorax at this time. Extensive subcutaneous emphysema pneumomediastinum. Moderate emphysema. Prominent blebs at the lung apices. Mild linear atelectasis within the lower lungs. Technologist: TMPDictated By: Livia ANTHONY DO By: Livia ANTHONY DO Out: 12/17/15 01:55:05 Normal [facility] HEMOon 10-04-2017 DIFF? No Normal [facility] Comment on above: Performed By: #### [id number], [id number], 1161 34 ####[facility] [address]ype07[address] [place], [place] [id number]) [phone] Director: Mo Cristobal MD Erythrocyte distribution width Auto Ratio (RBC) 13.7 % Normal 11.5-14.5 [facility] Comment on above: Performed By: #### 632128, 1158587, 116 34 ####[facility] Bmwwlvdw56828 [place], [place] [id number]) [phone] Director: Mo Cristobal MD Erythrocytes (RBC) 4.29 x10 Low 4.70-6.10 [facility] Comment on above: Result Comment: Note: RBC morphology is normal unless otherwise stated. Evaluation performed only if differential is requested. Performed By: #### 1 47089, [id number], 608441 ####[facility] Xevkxlcn15840 [place], [place] [id number]) [phone] Director: Mo Cristobal MD Hematocrit (HCT) 43.9 % Normal 41.0-52.0 [facility] Comment on above: Performed By: #### 086404, 9418778, 1161 34 ####[facility] [address]fmls827[address] [place] [address] Medical Director: Mo Cristobal MD Hemoglobin mass conc (Bld) 15.2 g/dL Normal 13.5-17.5 [facility] Comment on above: Performed By: #### 260441, 1608420, 1161 34 ####[facility] [address] [place] [address] Medical Director: Mo Cristobal MD MCH 35.4 pg High 27.0-34.0 [facility] Comment on above: Performed By: #### 882051, 8622161, 1161 34 ####[facility] [address]yyevmb17766 [place] [address] Medical Director: Mo Cristobal MD MCHC mass conc (RBC) 34.6 g/dL Normal 32.0-37.0 [facility] Comment on above: Performed By: #### 807860, 4417631, 1161 34 ####[facility] [address]rec[address] [place] [address] Medical Director: Mo Cristobal MD MCV 102.2 fL High 80.0-100.0 [facility] Comment on above: Performed By: #### 396267, 6866894, 1161 34 ####[facility] [address]sxuhh52195 [place] [address] Medical Director: Mo Cristobal MD Nucleated RBC% 0 /100WC Normal [facility] Comment on above: Performed By: #### 278613, 7166190, 1161 34 ####[facility] Bggczppg65614 [place] [address] Medical Director: Mo Cristobal MD Platelet mean volume (PMV) 7.6 fL Normal 7.4-10.4 [facility] Comment on above: Performed By: #### 305070, 9990028, 1161 34 ####[facility] [address]mfz94135 [place] [address] Medical Director: Mo Cristobal MD Platelets 267 x1000 Normal 150-450 [facility] Comment on above: Performed By: #### 688562, 4411033, 1161 34 ####[facility] Ywpygiua24956 [place] [address] Medical Director: Mo Cristobal MD WBC (Leukocytes) 6.2 10*3/uL Normal [facility] Comment on above: Performed By: #### 491768, 1684519, 1167 34 ####[facility] [address]ofvav50340 [place] [address] Medical Director: Mo Cristobal MD WBC (Leukocytes) 6.2 x10 Normal 4.5-11.0 [facility] Comment on above: Performed By: #### 632130, 7536376, 1164 34 ####[facility] Amppihce51322 [place] [address] Medical Director: Mo Cristobal MD XR RIBS UNILATERALon 018 XR RIBS UNILATERAL Left ribs, 4 views.Clinical information: Injury; left lower anterior rib pain after fall.4 views of the left ribs show a remote healed fracture deformityinvolving the posterolateral aspect of the left seventh rib, unchangedfrom a chest x-ray of 01/01/2016. No other fracture or lytic or blasticchange is noted.IMPRESSION: Remote fracture deformity involving the left seventh rib.No apparent acute fracture of the left ribs.Technologist: EBDictated By: Hortencia JUSTICE MDgned By: Minerva JUSTICE MD Out: 10/04/17 21:21:46 Normal [facility] Vital Signs Date Time Vital Sign Value Performing Clinician Facility 12-08-2024 14: Body height 180.3 cm Marii Bales MD Work Phone: [facility] 12-08-2024 14: Body mass index (BMI) [Ratio] 23.43 kg/m2 Marii Bales MD Work Phone: [facility] 12-08-2024 14: Body temperature 98.8 [degF] Marii Bales MD Work Phone: [facility] 12-08-2024 14:13040 Body weight 76.2 kg Marii Bales MD Work Phone: [facility] 12-08-2024 14:13-0400 Diastolic blood pressure 70 mm[Hg] Marii Bales MD Work Phone: [facility] 12-08-2024 14:13-0400 Heart rate 108 /min Marii Bales MD Work Phone: [facility] 12-08-2024 14:13-0400 SaO2% (BldA) [Mass fraction] 98 % Marii Bales MD Work Phone: [facility] 12-08-2024 14:13-0400 Systolic blood pressure 125 mm[Hg] Marii Bales MD Work Phone: [facility] 11-07-2024 09:31-0500 Body height 180.3 cm Annmarie Nixon MD Work Phone: [facility] 11-07-2024 09:31-0500 Body mass index (BMI) [Ratio] 20.92 kg/m2 Annmarie Nixon MD Work Phone: [facility] 11-07-2024 09:31-0500 Body weight 68.04 kg Annmarie Nixon MD Work Phone: [facility] 11-07-2024 09:31-0500 Diastolic blood pressure 82 mm[Hg] Annmarie Nixon MD Work Phone: [facility] 11-07-2024 09:31-0500 Systolic blood pressure 129 mm[Hg] Annmarie Nixon MD Work Phone: [facility] 10-28-2024 16:29-0500 Diastolic blood pressure 91 mm[Hg] Valerie Michelle DO Work Phone: [facility] 10-28-2024 16:29-0500 Heart rate 91 /min Valerie Michelle DO Work Phone: [facility] 10-28-2024 16:29-0500 Respiratory rate 18 /min Valerie Michelle DO Work Phone: [facility] 10-28-2024 16:29-0500 SaO2% (BldA) [Mass fraction] 99 % Valerie Julito DO Work Phone: [facility] 10-28-2024 16:29-0500 Systolic blood pressure 136 mm[Hg] Valerie Julito DO Work Phone: [facility] 10-28-2024 15:37-0500 Body height 180.3 cm Valerie Julito DO Work Phone: [facility] 10-28-2024 15:37-0500 Body mass index (BMI) [Ratio] 20.92 kg/m2 Valerie Julito DO Work Phone: [facility] 10-28-2024 15:37-0500 Body temperature 98.2 [degF] Valerie Julito DO Work Phone: [facility] 10-28-2024 15:37-0500 Body weight 68.04 kg Valerie Julito DO Work Phone: [facility] 06-09-2024 14:10-0400 Body height 182.9 cm Marii Bales MD Work Phone: [facility] 06-09-2024 14:10-0400 Body mass index (BMI) [Ratio] 19.12 kg/m2 Marii Bales MD Work Phone: [facility] 06-09-2024 14:10-0400 Body temperature 97.5 [degF] Marii Bales MD Work Phone: [facility] 06-09-2024 14:10-0400 Body weight 63.96 kg Marii Bales MD Work Phone: [facility] 06-09-2024 14:10-0400 Diastolic blood pressure 60 mm[Hg] Marii Bales MD Work Phone: 9(691)628-235092 [place] [address] 06-09-2024 14:10-0400 Heart rate 98 /min Marii Bales MD Work Phone: 4(636)343-041992 [place] [address] 06-09-2024 14:10-0400 SaO2% (BldA) [Mass fraction] 98 % Marii Bales MD Work Phone: 0(953)296-288392 [place] [address] 06-09-2024 14:10-0400 Systolic blood pressure 89 mm[Hg] Marii Bales MD Work Phone: 6(554)949-950992 [place] [address] 12-07-2023 14:08-0400 Body height 182.9 cm Marii Bales MD Work Phone: 3(563)167-758692 [place] [address] 12-07-2023 14:08-0400 Body mass index (BMI) [Ratio] 21.27 kg/m2 Marii Bales MD Work Phone: 8(559)765-829892 [place] [address] 12-07-2023 14:08-0400 Body weight 71.12 kg Marii Bales MD Work Phone: 8(844)072-979192 [place] [address] 12-07-2023 14:08-0400 Diastolic blood pressure 87 mm[Hg] Marii Bales MD Work Phone: 5(599)122-241892 [place] [address] 12-07-2023 14:08-0400 Heart rate 104 /min Marii Bales MD Work Phone: 4(617)243-168892 [place] [address] 12-07-2023 14:08-0400 SaO2% (BldA) [Mass fraction] 97 % Marii Bales MD Work Phone: 8(391)529-378992 [place] [address] 12-07-2023 14:08-0400 Systolic blood pressure 140 mm[Hg] Marii Bales MD Work Phone: 3(243)614-009392 [place] [address] 10-09-2023 18:27-0500 Body height 182.88 cm [facility] 10-09-2023 18:27-0500 Body mass index (BMI) [Ratio] 20.4 kg/m2 [facility] 10-09-2023 18:27-0500 Body temperature 97.6 [degF] [facility] 10-09-2023 18:27-0500 Body weight 68.31 kg [facility] 10-09-2023 18:27-0500 Diastolic blood pressure 89 mm[Hg] [facility] 10-09-2023 18:27-0500 Heart rate 78 /min [facility] 10-09-2023 18:27-0500 Respiratory rate 18 /min [facility] 10-09-2023 18:27-0500 SaO2% (BldA) [Mass fraction] 100 % [facility] 10-09-2023 18:27-0500 Systolic blood pressure 139 mm[Hg] [facility] 09-17-2023 15:00-0500 Body height 182.9 cm Jak Lam MD Work Phone: 6(882)395-417892 [place] [address] 09-17-2023 15:00-0500 Body mass index (BMI) [Ratio] 19.53 kg/m2 Jak Lam MD Work Phone: 6(355)552-834492 [place] [address] 09-17-2023 15:00-0500 Body weight 65.32 kg Jak Lam MD Work Phone: 6(108)101-718592 [place] [address] 09-17-2023 15:00-0500 Diastolic blood pressure 84 mm[Hg] Jak Lam MD Work Phone: 5(111)603-808592 [place] [address] 09-17-2023 15:00-0500 Heart rate 97 /min Jak Lam MD Work Phone: 6(448)706-326492 [place] [address] 09-17-2023 15:00-0500 SaO2% (BldA) [Mass fraction] 98 % Jak Lam MD Work Phone: 4(715)391-510392 [place] [address] 09-17-2023 15:00-0500 Systolic blood pressure 157 mm[Hg] Jak Lam MD Work Phone: 5(755)205-082692 [place] [address] 04-27-2023 10:31-0400 Body height 182.9 cm Marii Bales MD Work Phone: 7(838)849-527339 [place] [address] 04-27-2023 10:31-0400 Body mass index (BMI) [Ratio] 20.89 kg/m2 Marii Blaes MD Work Phone: 5(215)608-539992 [place] [address] 04-27-2023 10:31-0400 Body weight 69.85 kg Marii Bales MD Work Phone: 1(128)101-762292 [place] [address] 04-27-2023 10:31-0400 Diastolic blood pressure 80 mm[Hg] Marii Bales MD Work Phone: 4(457)261-969892 [place] [address] 04-27-2023 10:31-0400 Heart rate 109 /min Marii Bales MD Work Phone: 9(656)080-818992 [place] [address] 04-27-2023 10:31-0400 SaO2% (BldA) [Mass fraction] 93 % Marii Bales MD Work Phone: 9(688)573-518292 [place] [address] 04-27-2023 10:31-0400 Systolic blood pressure 120 mm[Hg] Marii Bales MD Work Phone: 3(396)229-806892 [place] [address] 02-01-2023 05:07-0400 Diastolic blood pressure 90 mm[Hg] [facility] 02-01-2023 05:07-0400 Heart rate 87 /min [facility] 02-01-2023 05:07-0400 Respiratory rate 16 /min [facility] 02-01-2023 05:07-0400 Systolic blood pressure 140 mm[Hg] [facility] 02-01-2023 02:48-0400 Body height 182.88 cm [facility] 02-01-2023 02:48-0400 Body mass index (BMI) [Ratio] 22.1 kg/m2 [facility] 02-01-2023 02:48-0400 Body temperature 96.4 [degF] [facility] 02-01-2023 02:48-0400 Body weight 73.9 kg [facility] 02-01-2023 02:48-0400 SaO2% (BldA) [Mass fraction] 100 % [facility] 10-26-2022 10:18-0500 Body height 182.88 cm Marii B Amairani Work Phone: -[facility] Work Phone: 10-26-2022 10:18-0500 Body mass index (BMI) [Ratio] 21.97 kg/m2 Marii B Amairani Work Phone: [facility] Work Phone: 10-26-2022 10:18-0500 Body surface area Derived from formula 1.95 m2 Marii B Amairani Work Phone: [facility] Work Phone: 10-26-2022 10:18-0500 Body temperature 97.5 [degF] Marii B Amairani Work Phone: [facility] Work Phone: 10-26-2022 10:18-0500 Body weight 73.48 kg Marii B Amairani Work Phone: [facility] Work Phone: 10-26-2022 10:18-0500 Diastolic blood pressure 80 mm[Hg] Marii B Amairani Work Phone: [facility] Work Phone: 10-26-2022 10:18-0500 Heart rate 81 /min Marii B Amairani Work Phone: [facility] Work Phone: 10-26-2022 10:18-0500 SaO2% (BldA) [Mass fraction] 98 % Marii B Amairani Work Phone: [facility] Work Phone: 10-26-2022 10:18-0500 Systolic blood pressure 137 mm[Hg] Marii B Amairani Work Phone: [facility] Work Phone: 05-29-2020 15:09-0400 BMI (Body Mass Index) 21.84 kg/m2 Marii Barons [facility] Work Phone: 05-29-2020 15:09-0400 Body Temperature 98.4 [degF] Marii Bales [facility] Work Phone: 05-29-2020 15:09-0400 Body weight 73.03 kg Marii Bales [facility] Work Phone: 05-29-2020 15:09-0400 BP Diastolic 80 mm[Hg] Marii Barons [facility] Work Phone: 05-29-2020 15:09-0400 BP Systolic 136 mm[Hg] Marii Vyas [facility] Work Phone: 05-29-2020 15:09-0400 BSA (Body Surface Area) 1.94 m2 Mariibrayan Bales [facility] Work Phone: 05-29-2020 15:09-0400 Height 182.88 cm Marii Bales [facility] Work Phone: 05-29-2020 15:09-0400 Pulse (Heart Rate) 90 /min Marii Bales [facility] Work Phone: 05-29-2020 15:09-0400 Pulse Oximetry 97 % Marii Barons [facility] Work Phone: Encounters Encounter Date Encounter Type Care Provider Facility Start: 12-08-2024 End: 12-08-2024 Office outpatient visit 15 minutes Marii Bales MD Work Phone: [facility] Comment on above: Visit for preventive health examination (Primary Dx); Hypertension, unspecified type Start: 12-08-2024 End: 12-08-2024 Patient encounter status Marii Bales MD Work Phone: [facility] Work Phone: Start: 12-08-2024 End: 12-08-2024 ambulatory [facility] Start: 12-08-2024 End: 12-08-2024 Encounter for general adult medical examination without abnormal findings [facility] Start: 11-07-2024 End: 11-07-2024 ambulatory [facility] Start: 11-07-2024 End: 11-07-2024 Office outpatient new 30 minutes Annmarie Nixon MD Work Phone: [facility] Comment on above: Impacted cerumen of left ear (Primary Dx); Infective otitis externa of right ear Start: 10-28-2024 End: 10-28-2024 Emergency department patient visit Valerie Michelle DO Work Phone: [facility] Comment on above: Recurrent acute supp urative otitis media of right ear with spontaneous rupture of tympanic membrane (Primary Dx); Suppurative otitis media of right ear, unspecified chronicity Start: 07-03-2024 End: 07-03-2024 Emergency department patient visit No Primary Care Physician Facility:[facility] Start: 06-09-2024 End: 06-09-2024 Office outpatient visit 15 minutes Marii Bales MD Work Phone: [facility] Comment on above: Centrilobular emphys americo (Multi) (Primary Dx); Hypertension, unspecified type Start: 06-09-2024 End: 06-09-2024 ambulatory [facility] Start: 12-22-2023 ambulatory [facility] ity:[facility] Start: 12-22-2023 End: 12-22-2023 ambulatory [facility] Facility:[facility] Start: 12-07-2023 End: 12-08-2023 ambulatory [facility] Start: 12-07-2023 End: 12-08-2023 Encounter for general adult medical examination without abnormal findings MARII BALES [facility] Start: 12-07-2023 End: 12-07-2023 Patient encounter status Marii Bales MD Work Phone: [facility] Work Phone: Start: 12-07-2023 End: 12-07-2023 Periodic preventive med est patient 40-64yrs Marii Bales MD Work Phone: [facility] Comment on above: Visit for preventive health examination (Primary Dx); Hypertension, unspecified type Start: 10-28-2023 End: 10-28-2023 ambulatory WHITNEY HOWARD Facility:[facility] Start: 10-28-2023 End: 10-28-2023 Office consultation new/estab patient 80 min Whitney Howard MD Work Phone: Orthopaedics Comment on above: Closed fracture of p roximal end of right humerus, unspecified fracture morphology, initial encounter (Primary Dx); Essential hypertension, malignant; Tobacco abuse; Alcohol misuser in household; Alcohol use disorder, moderate, dependence (HCC); Simple chronic bronchitis (HCC) Start: 10-18-2023 End: 10-18-2023 ambulatory No Primary Care Physician Facility[facility] Start: 10-14-2023 End: 10-14-2023 Emergency department patient visit No Primary Care Physician Facility:[facility] Start: 10-09-2023 End: 10-09-2023 Emergency department patient visit [facility] Work Phone: Start: 09-17-2023 End: 09-17-2023 Office outpatient visit 15 minutes Jak Lam MD Work Phone: [facility] Comment on above: Essential hypertensi on (Primary Dx); Alcoholism (CMS/HCC); Impacted cerumen, unspecified laterality; Hyponatremia Start: 04-27-2023 End: 04-27-2023 Office outpatient visit 15 minutes Marii Bales MD Work Phone: [facility] Comment on above: Hypertension, unspec ified type Start: 02-01-2023 End: 02-01-2023 Emergency department patient visit [facility] Start: 10-29-2022 Chart Update Marii B Amairani Work Phone: -[facility] Work Phone: Start: 10-26-2022 ambulatory Marii fariasumar Amairani Facility:[id number] Start: 10-26-2022 Office outpatient vi sit 25 minutes Marii B Amairani Work Phone: -[facility] Work Phone: Start: 04-06-2022 ambulatory Marii fariasumar Amairani Facility:[id number] Start: 09-10-2021 AUDIT Marii B Amairani Work Phone: -[facility] Work Phone: Start: 05-29-2020 Patient encounter procedure Marii Amairani [facility] Work Phone: Start: 04-15-2020 Patient encounter procedure Marii Amairani [facility] Work Phone: Start: 02-23-2020 End: 02-24-2020 Emergency department patient visit CLIFFMARTHA HOWELL Facility:[facility] Start: 01-23-2020 Patient encounter procedure Marii Amairani -[facility] Work Phone: Start: 01-22-2020 Patient encounter procedure Marii Amairani -[facility] Work Phone: Start: 06-06-2019 Patient encounter procedure Marii Amairani [facility] Work Phone: Start: 11-01-2018 Patient encounter procedure Marii Amairani [facility] Work Phone: Start: 09-28-2018 Patient encounter procedure Marii Amairani [facility] Work Phone: Start: 10-04-2017 End: 10-05-2017 Emergency department patient visit EBONY BARLOW Facility:[id number] Procedures Date Procedure Procedure Detail Performing Clinician Start: 12-07-2023 CBC panel - Blood by Automated count MARII BALES Start: 12-07-2023 Comprehensive metabo lic 2000 panel - Serum or Plasma MARII AMAIRANI Start: 12-07-2023 Lipid panel MARII MANUEL Start: 12-07-2023 PROSTATE SPECIFIC AN TIGEN, SCREEN MARII BALES Start: 12-07-2023 TSH WITH REFLEX TO F REE T4 IF ABNORMAL MARII BALES Start: 12-07-2023 URINALYSIS WITH REFL EX MICROSCOPIC MARII BALES Start: 12-07-2023 Lipid 1996 panel - S stevan or Plasma Marii Bales MD Work Phone: Start: 10-09-2023 Plain X-ray of shoulder Start: 02-01-2023 Plain x-ray of wrist Start: 02-01-2023 Plain x-ray of hand Start: 10-26-2022 Lipid 1996 panel - S stevan or Plasma Marii Bales MD Work Phone: Start: 02-23-2020 Blood count complete automated CLIFF HOWELL Start: 02-23-2020 Blood gases any comb ination ph pco2 po2 co2 hco3 CLIFF HOWELL Start: 02-23-2020 DISCHARGE PATIENT SURJIT HOWELL Start: 02-23-2020 Ecg routine ecg w/le ast 12 lds trcg only w/o i&r CLIFF HOWELL Start: 02-23-2020 INSERT PERIPHERAL IV ACCESS CLIFF HOWELL Start: 02-23-2020 Radiologic exam ches t single view CLIFF HOWELL History of Lung Surgery Bhavik january Amairani History of Oral Surg jonnathan Tooth Extraction Marii Bales Plan of Treatment Date Care Activity Detail Author Start: 02-17-2031 DTaP/Tdap/Td Vaccine s (3 - Td or Tdap) DTaP/Tdap/Td Vaccines (3 - Td or Tdap) [facility] Start: 02-17-2031 Urine microalbumin profile DTaP,Tdap,Td Vaccine (3 - Td or Tdap) [facility] Start: 12-06-2028 Lipid panel Lipid Panel [facility] Start: 10-26-2027 Lipid panel [facility] Start: 10-26-2025 Diabetes Screening Diabetes Screenin g [facility] Start: 06-15-2025 End: 06-15-2025 Patient encounter procedure 06/15/2025 1:00 PM EDT Office Visit [facility] [address] [place] [phone] Marii Bales MD [address] [place] [address] [facility] Start: 03-06-2025 End: 03-06-2025 Patient encounter procedure 03/06/2025 1:00 PM EDT Office Visit [facility] [address] [place] [address] Annmarie Nixon MD [address] [place] [address] [facility] Start: 12-08-2024 End: 12-08-2025 CBC panel - Blood by Automated count CBC Lab Routine Hypertension, unspecified type Expected: 12/08/2024 (Approximate), Expires: 12/08/2025 [facility] Work Phone: Comment on above: Expected: 12/08/2024 (Approximate), Expires: 12/08/2025 Start: 12-08-2024 End: 12-08-2025 Comprehensive metabolic 2000 panel - Serum or Plasma Comprehensive Metabolic Panel Lab Routine Hypertension, unspecified type Expected: 12/08/2024 (Approximate), Expires: 12/08/2025 [facility] Work Phone: Comment on above: Expected: 12/08/2024 (Approximate), Expires: 12/08/2025 Start: 12-08-2024 End: 12-08-2025 Lipid 1996 panel - Serum or Plasma Lipid Panel Lab Routine Hypertension, unspecified type Expected: 12/08/2024 (Approximate), Expires: 12/08/2025 [facility] Work Phone: Comment on above: Expected: 12/08/2024 (Approximate), Expires: 12/08/2025 Start: 12-08-2024 End: 12-08-2024 Patient encounter procedure 12/08/2024 2:00 PM EDT Office Visit [facility] [address] [place] [address] Marii Bales MD [address] [place] [address] [facility] Start: 12-08-2024 End: 12-08-2025 Prostate specific Ag [Mass/volume] in Serum or Plasma Prostate Specific Antigen, Screen Lab Routine Visit for preventive health examination Expected: 12/08/2024 (Approximate), Expires: 12/08/2025 [facility] Service Area Work Phone: Comment on above: Expected: 12/08/2024 (Approximate), Expires: 12/08/2025 Start: 12-08-2024 End: 12-08-2025 TSH with reflex to Free T4 if abnormal TSH with reflex to Free T4 if abnormal Lab Routine Hypertension, unspecified type Expected: 12/08/2024 (Approximate), Expires: 12/08/2025 [facility] Work Phone: Comment on above: Expected: 12/08/2024 (Approximate), Expires: 12/08/2025 Start: 12-08-2024 End: 12-08-2025 Urinalysis complete panel - Urine Urinalysis with Reflex Microscopic Lab Routine Hypertension, unspecified type Expected: 12/08/2024 (Approximate), Expires: 12/08/2025 [facility] Work Phone: Comment on above: Expected: 12/08/2024 (Approximate), Expires: 12/08/2025 Start: 12-07-2024 [facility] Start: 06-09-2024 End: 06-09-2024 Patient encounter procedure 06/09/2024 2:00 PM EDT Office Visit [facility] [address] [place] [address] Marii Bales MD [address] [place] [address] [facility] Start: 05-28-2024 COVID-19 Vaccine () COVID-19 Vaccine () [facility] Start: 05-28-2024 COVID-19 Vaccine () COVID-19 Vaccine () [facility] Start: 05-28-2024 COVID-19 Vaccine () COVID-19 Vaccine () [facility] Start: 12-07-2023 End: 12-06-2024 CBC panel - Blood by Automated count [facility] Work Phone: Comment on above: Expected: 12/07/2023 (Approximate), Expires: 12/06/2024 Start: 12-07-2023 End: 12-06-2024 Comprehensive metabolic 2000 panel - Serum or Plasma [facility] Work Phone: Comment on above: Expected: 12/07/2023 (Approximate), Expires: 12/06/2024 Start: 12-07-2023 End: 12-14-2023 Hemoglobin.gastrointesti nal.lower [Presence] in Stool by Immunoassay Fecal Occult Blood Immunoassy Microbiology Routine Visit for preventive health examination Expected: 12/07/2023 (Approximate), Expires: 12/14/2023 [facility] Work Phone: Comment on above: Expected: 12/07/2023 (Approximate), Expires: 12/14/2023 Start: 12-07-2023 End: 12-06-2024 Lipid 1996 panel - Serum or Plasma [facility] Work Phone: Comment on above: Expected: 12/07/2023 (Approximate), Expires: 12/06/2024 Start: 12-07-2023 End: 12-06-2024 Prostate specific Ag [Mass/volume] in Serum or Plasma [facility] Service Area Work Phone: Comment on above: Expected: 12/07/2023 (Approximate), Expires: 12/06/2024 Start: 12-07-2023 End: 12-06-2024 TSH with reflex to Free T4 if abnormal [facility] Work Phone: Comment on above: Expected: 12/07/2023 (Approximate), Expires: 12/06/2024 Start: 12-07-2023 End: 12-06-2024 Urinalysis complete panel - Urine Urinalysis with Reflex Microscopic Lab Routine Hypertension, unspecified type Visit for preventive health examination Expected: 12/07/2023 (Approximate), Expires: 12/06/2024 [facility] Work Phone: Comment on above: Expected: 12/07/2023 (Approximate), Expires: 12/06/2024 Start: 10-28-2023 End: 10-28-2023 Patient encounter procedure [facility] Start: 10-26-2023 Diabetes mellitus screening Diabetes Screening [facility] Start: 10-09-2023 [facility] Start: 06-24-2023 Screening for malign ant neoplasm of colon [facility] Start: 05-28-2023 COVID-19 Vaccine ( season) COVID-19 Vaccine ( season) [facility] Start: 05-28-2023 Covid-19 Vaccine ( season) Covid-19 Vaccine ( season) [facility] Start: 05-28-2023 Influenza vaccination Influenza Vacc ine (#1) [facility] Start: 04-27-2023 FUV, Provider: Marii Bales, Status: Pen, Time: 10:00 AM FUV, Provider: Marii Bales, Status: Pen, Time: 10:00 AM [facility] Work Phone: Start: 12-21-2022 COVID-19 Vaccine (4 - Booster for Pfizer series) COVID-19 Vaccine (4 - Booster for Pfizer series) [facility] Start: 12-21-2022 COVID-19 Vaccine (4 - Pfizer series) COVID-19 Vaccine (4 - Pfizer series) [facility] Start: 2022 Prostate specific antigen measurement Prostate Cancer Screening Discussion [facility] Start: 09-17-2021 FUV, Provider: Marii Bales, Status: Pen, Time: 2:30 PM FUV, Provider: Marii Bales, Status: Pen, Time: 2:30 PM [facility] Work Phone: Start: 05-29-2021 Pneumococcal vaccination Pneum ococcal Vaccine (2 of 2 - PCV) [facility] Start: 05-29-2021 Pneumococcal Vaccine : Pediatrics (0 to 5 Years) and At-Risk Patients (6 to 64 Years) (2 - PCV) Pneumococcal Vaccine: Pediatrics (0 to 5 Years) and At-Risk Patients (6 to 64 Years) (2 - PCV) [facility] Start: 05-29-2021 Pneumococcal Vaccine : Pediatrics (0 to 5 Years) and At-Risk Patients (6 to 64 Years) (2 of 2 - PCV) Pneumococcal Vaccine: Pediatrics (0 to 5 Years) and At-Risk Patients (6 to 64 Years) (2 of 2 - PCV) [facility] Start: 2017 Screening for malign ant neoplasm of lung Lung Cancer Screening [facility] Start: 2017 Shingrix Vaccine (1 of 2) Shingrix Vaccine (1 of 2) [facility] Start: 2017 Zoster Vaccines (1 of 2) Zoste r Vaccines (1 of 2) [facility] Start: 2012 Screening for malign ant neoplasm of colon [facility] Start: 1986 Hepatitis B Vaccines (1 of 3 - 19+ 3-dose series) Hepatitis B Vaccines (1 of 3 - 19+ 3-dose series) [facility] Start: 1985 [facility]: 1985 HIV screening HIV Screening [facility] Start: 1973 Pneumococcal vaccination Pneum ococcal Vaccine (1 of 2 - PCV) [facility] Start: 1968 MMR Vaccines (1 of 1 - Standard series) MMR Vaccines (1 of 1 - Standard series) [facility] Start: 1965 Hepatitis B Vaccine (1 of 3 - 3-dose series) Hepatitis B Vaccine (1 of 3 - 3-dose series) [facility] Start: 1965 Hepatitis B Vaccines (1 of 3 - 3-dose series) Hepatitis B Vaccines (1 of 3 - 3-dose series) [facility] Start: 1965 HIV screening HIV Screening [facility] Start: 1965 Screening for malign ant neoplasm of colon [facility] Start: 1965 Yearly Adult Physical Yearly Adult P hysical [facility] Patient Education [facility] Work Phone: Patient referral [facility] Work Phone: [facility] Immunizations Immunization Date Immunization Notes Care Provider Fa cility 06-09-2024 Seasonal, trivalent, recombinant, injectable influenza vaccine, preservative free Marii Bales MD Work Phone: [facility] Work Phone: 10-26-2022 Seasonal, quadrivale nt, recombinant, injectable influenza vaccine, preservative free; Translations: [Flublok Quadrivalent 0.5 ML Intramuscular Solution Prefilled Syringe] Mraii Bales Work Phone: [facility] Work Phone: Comment on above: Series: 10-26-2022 influenza virus vacc ine, unspecified formulation Marii Bales MD Work Phone: [facility] Work Phone: 10-28-2021 Seasonal, quadrivale nt, recombinant, injectable influenza vaccine, preservative free; Translations: [Flublok Quadrivalent 0.5 ML Intramuscular Solution Prefilled Syringe] Marii Bales Work Phone: [facility] Work Phone: Comment on above: Series: 09-11-2021 Pfizer-BioNTech COVI D-19 Vacc 30 MCG/0.3ML Intramuscular Suspension [facility] Work Phone: [facility] Work Phone: Comment on above: Series: 02-17-2021 tetanus and diphther ia toxoids, adsorbed, preservative free, for adult use (5 Lf of tetanus toxoid and 2 Lf of diphtheria toxoid) [facility] Work Phone: [facility] 01-03-2021 Pfizer-BioNTech COVI D-19 Vacc 30 MCG/0.3ML Intramuscular Suspension [facility] Work Phone: [facility] Work Phone: Comment on above: Series: 12-13-2020 Pfizer-BioNTech COVI D-19 Vacc 30 MCG/0.3ML Intramuscular Suspension [facility] Work Phone: [facility] Work Phone: Comment on above: Series: 05-29-2020 influenza, injectabl e, quadrivalent, preservative free; Translations: [Flulaval Quadrivalent 0.5 ML Intramuscular Suspension Prefilled Syringe] [facility] Comment on above: Series: 05-29-2020 pneumococcal polysaccharide vaccine, 23 valent; Translations: [Pneumovax 23 25 MCG/0.5ML Injection Injectable] [facility] Work Phone: Comment on above: Series: 07-10-2016 influenza virus vacc ine, unspecified formulation [facility] Work Phone: [facility] Work Phone: Comment on above: Series: 07-10-2016 influenza, seasonal, injectable [facility] Work Phone: 01-13-2011 tetanus toxoid, redu suzie diphtheria toxoid, and acellular pertussis vaccine, adsorbed Whitney Howard MD Work Phone: [facility] Work Phone: Payers Date Payer Category Payer Self-pay 2022 Medicaid [facility] MEDICAID [facility] COMMUNITY PLAN MEDICAID OF [place] [id number] 2022-Present [phone] [address] [place] [address] Medicaid [id number] 2018 Medicaid (Managed Care) [facility] COMMUNITY PLAN [id number] 2018 Private Health Insurance [facility] [id number] 2018-Present [address] [place] [address] [id number] 2018 Unknown [id number] 2016 Medicaid [id number] 1967 Unknown [id number] 1967 Unknown [id number] 356 1967 Unknown [id number] 356 1967 Unknown [id number] 1245 1967 Unknown [id number] 1243 1967 Unknown [id number] 1244 1967 Unknown [id number] 1244 1967 Unknown [id number] 1244 Unknown [facility] PLAN Unknown [id number] 462 Unknown [id number] 462 Unknown [id number] 462 Unknown [id number] 462 Social History Date Type Detail Facility Start: 04-27-2023 End: 11-07-2024 Former smoker Former smoker [facility] Work Phone: Start: 02-01-2023 End: 10-09-2023 Tobacco smoking status [facility] Unknown if ever smoked [facility] Start: 1965 Sex Assigned At Male [facility] Start: 04-27-2023 End: 12-07-2023 Tobacco smoking status AZIS Smokes tobacco daily [facility] Work Phone: History of tobacco use Cigarette Smoker [facility] Work Phone: Start: 04-27-2023 End: 06-09-2024 Tobacco use and exposure Smokeless tobacco non-user [facility] Work Phone: Start: 04-27-2023 End: 12-08-2024 Alcohol intake Current drinker of alcohol (finding) [facility] Work Phone: Start: 1965 [facility] Start: 04-27-2023 End: 11-07-2024 Gender identity Not on file [facility] Work Phone: Start: 04-17-2023 End: 12-08-2024 Exposure to SARS-CoV-2 (event) Not sure [facility] How often to you hav e a drink containing alcohol? 4 or more times a week [facility] Work Phone: How many standard dr inks containing alcohol do you have on a typical day? 3 or 4 [facility] Work Phone: How often do you hav e 6 or more drinks on 1 occasion? Monthly [facility] Work Phone: Has the [employer], or [employer] threatened to shut off services in your home in past 12Mo Yes [facility] Are you now , , , , never or living with a partner? [facility] How often do you hav e 6 or more drinks on 1 occasion? Never [facility] How hard is it for y ou to pay for the very basics like food, housing, medical care, and heating Very hard [facility] Do you feel stress - tense, restless, nervous, or anxious, or unable to sleep at night because your mind is troubled all the time - these days [OSQ] Not at all [facility] (I/We) worried tapan er (my/our) food would run out before (I/we) got money to buy more. Often true [facility] In the past 12 month s, has lack of transportation kept you from medical appointments or from getting medications? Yes [facility] Start: 02-17-2021 Alcohol Comment 3 days weekly- drink til I get drunk [facility] Start: 11-15-2023 Gender identity Identifies as male gender (finding) [facility] Work Phone: Start: 11-15-2023 Sexual orientation Heterosexua l (finding) [facility] Work Phone: Start: 06-09-2024 Tobacco smoking stat us NHIS Occasional tobacco smoker [facility] Work Phone: How often do you hav e 6 or more drinks on 1 occasion? Monthly [facility] Work Phone: NEGATED: Highlighted row - - [facility] Work Phone: Functional Status Date Assessment Result Facility NEGATED: Highlighted row Functional performance Functional status health issues are not documented Disease [facility] Work Phone: Mental Status Date Assessment Result Facility NEGATED: Highlighted row Cognitive function [Interpretation] Cognitive status health issues are not documented Disease [facility] Work Phone: Clinical Notes 04-27-2023 to 12-08-2024 Marii Bales MD - 12/08/2024 2:00 PM Alda Nixon MD - 11/07/2024 9:30 AM ESTDischarge InstructionsAttachmentsMarii Bales MD - 06/09/2024 2:00 PM EDT Note Date & Type Note Facility 12-08-2024 History of Present illness Narrative Subjective Patient ID: Salvador Denis is a 59 y.o. male who presents for Follow-up (Declined physical). Assessment/Plan Problem List Items Addressed This Visit None Visit Diagnoses Hypertension, unspecified type Consider physical on next visit Meds refilled follow-up in 6 months Patient agrees Advised to cut down on smoking and alcohol Up-to-date with Cologuard- due Received Pneumovax Lab work today patient is fasting Continue current medication Discussed in detail about cutting down on alcohol and smoking On and off smoking but it is rare now Follow-up in 6 was come back early with any new sign and symptoms. Patient understands and agreement plan. HPI 59-year-old male follow-up on chronic medical conditions Still smoking and drinking advised to cut down Chronic alcoholism currently patient is significant cut down on drinking Elevated LFT Hyponatremia - secondary to beer potomania Former smoker History of right tension pneumothorax status post VATS Anemia lab work today On and off minimal wheezing probably underlying COPD with chronic smoking Trelegy sample provided on previous visit Declined for now -patient is homeless will consider FIT test patient did not do Allergies Allergen Reactions Aspirin Anaphylaxis itching, hives Current Outpatient Medications Medication Sig Dispense Refill [...] for this visit. Objective Visit Vitals BP 125/70 (BP Location: Left arm, Patient Position: Sitting) Pulse 108 Temp 37.1 C (98.8 F) Ht 1.803 m (5' 11) Wt 76.2 kg (168 lb) SpO2 98% BMI 23.43 kg/m Smoking Status Some Days BSA 1.95 m Physical Exam Constitutional: General: He is not in acute distress. Appearance: Normal appearance. HENT: Head: Normocephalic and atraumatic. Nose: Nose normal. Eyes: Extraocular Movements: Extraocular movements intact. Conjunctiva/sclera: Conjunctivae normal. Cardiovascular: Rate and Rhythm: Normal rate and regular rhythm. Pulmonary: Effort: Pulmonary effort is normal. Breath sounds: Bilateral minimal expiratory wheezing present Skin: General: Skin is warm. Neurological: Mental Status: He is alert and oriented to person, place, and time. Psychiatric: Mood and Affect: Mood normal. Behavior: Behavior normal. Immunization History Administered Date(s) Administered COVID-19, mRNA, LNP-S, PF, 30 mcg/0.3 mL dose 12/20/2020, 01/10/2021, 09/11/2021 Flu vaccine, trivalent, preservative free, no egg protein, age 18y+ (Flublok) 06/09/2024 [employer] COVID-19 vaccine, bivalent, age 12 years and older (30 mcg/0.3 mL) 10/26/2022 Review of Systems No visits with results within 4 Month(s) from this visit. Latest known visit with results is: Lab on 12/07/2023 Component Date Value Ref Range Status Prostate Specific Antigen,Screen 12/07/2023 0.19 <=4.00 ng/mL Final Thyroid Stimulating Hormone 12/07/2023 0.57 0.44 - 3.98 mIU/L Final Cholesterol 12/07/2023 145 0 - 199 mg/dL Final HDL-Cholesterol 12/07/2023 52.5 mg/dL Final Cholesterol/HDL Ratio 12/07/2023 2.8 Final LDL Calculated 12/07/2023 68 <=99 mg/dL Final VLDL 12/07/2023 24 0 - 40 mg/dL Final Triglycerides 12/07/2023 121 0 - 149 mg/dL Final Non HDL Cholesterol 12/07/2023 93 0 - 149 mg/dL Final Glucose 12/07/2023 106 (H) 74 - 99 mg/dL Final Sodium 12/07/2023 134 (L) 136 - 145 mmol/L Final Potassium 12/07/2023 4.8 3.5 - 5.3 mmol/L Final Chloride 12/07/2023 93 (L) 98 - 107 mmol/L Final Bicarbonate 12/07/2023 29 21 - 32 mmol/L Final Anion Gap 12/07/2023 17 10 - 20 mmol/L Final Urea Nitrogen 12/07/2023 17 6 - 23 mg/dL Final Creatinine 12/07/2023 0.89 0.50 - 1.30 mg/dL Final eGFR 12/07/2023 >90 >60 mL/min/1.73m*2 Final Calcium 12/07/2023 9.7 8.6 - 10.6 mg/dL Final Albumin 12/07/2023 4.8 3.4 - 5.0 g/dL Final Alkaline Phosphatase 12/07/2023 80 33 - 120 U/L Final Total Protein 12/07/2023 7.9 6.4 - 8.2 g/dL Final AST 12/07/2023 16 9 - 39 U/L Final Bilirubin, Total 12/07/2023 0.9 0.0 - 1.2 mg/dL Final ALT 12/07/2023 12 10 - 52 U/L Final WBC 12/07/2023 10.7 4.4 - 11.3 x10*3/uL Final nRBC 12/07/2023 0.0 0.0 - 0.0 /100 WBCs Final RBC 12/07/2023 4.22 (L) 4.50 - 5.90 x10*6/uL Final Hemoglobin 12/07/2023 13.6 13.5 - 17.5 g/dL Final Hematocrit 12/07/2023 39.0 (L) 41.0 - 52.0 % Final MCV 12/07/2023 92 80 - 100 fL Final MCH 12/07/2023 32.2 26.0 - 34.0 pg Final MCHC 12/07/2023 34.9 32.0 - 36.0 g/dL Final RDW 12/07/2023 12.8 11.5 - 14.5 % Final Platelets 12/07/2023 444 150 - 450 x10*3/uL Final Radiology: Reviewed imaging in powerchart. No results found. No family history on file. Social History Socioeconomic History Marital status: Tobacco Use Smoking status: Some Days Current packs/day: 0.25 Average packs/day: 0.3 packs/day for 25.0 years (6.3 ttl pk-yrs) Types: Cigarettes Smokeless tobacco: Never Substance and Sexual Activity Alcohol use: Yes Alcohol/week: 15.0 standard drinks of alcohol Types: 15 Cans of beer per week Drug use: Never Social Drivers of Health Financial Resource Strain: High Risk (10/28/2023) Received from [facility] Overall Financial Resource Strain (CARDIA) Difficulty of Paying Living Expenses: Very hard Food Insecurity: Food Insecurity Present (10/28/2023) Received from [facility] Hunger Vital Sign Worried About Running Out of Food in the Last Year: Often true Ran Out of Food in the Last Year: Often true Transportation Needs: Unmet Transportation Needs (10/28/2023) Received from [facility] PRAPARE - Transportation Lack of Transportation (Medical): Yes Lack of Transportation (Non-Medical): Yes Physical Activity: Insufficiently Active (10/28/2023) Received from [facility] Exercise Vital Sign Days of Exercise per Week: 3 days Minutes of Exercise per Session: 30 min Stress: No Stress Concern Present (10/28/2023) Received from [facility] [employer] [place] [employer] - Occupational Stress Questionnaire Feeling of Stress : Not at all Social Connections: Moderately Integrated (10/28/2023) Received from [facility] Social Connection and Isolation Panel [NHANES] Frequency of Communication with Friends and Family: More than three times a week Frequency of Social Gatherings with Friends and Family: More than three times a week Attends Jew Services: More than 4 times per year Active Member of Clubs or Organizations: Yes Attends Club or Organization Meetings: Never Marital Status: Housing Stability: High Risk (10/28/2023) Received from [facility], [facility] Housing Stability Vital Sign Unable to Pay for Housing in the Last Year: Yes Unstable Housing in the Last Year: Yes Past Medical History: Diagnosis Date Contusion of [...] include unintended errors. documented in this encounter [facility] Work Phone: 11-07-2024 History of Present illness Narrative ENT Outpatient Consultation Chief Complaint: ear infection History Of Present Illness Sabi Franco is a 59 y.o. male presents for follow up after a recent ED visit for right ear pain. He was seen in the ED 10/28 and was prescribed Augmentin and ofloxacin drops. About 1 week prior to the ED visit, he developed ear pain and muffled hearing. Antibiotics helped but he still has decreased hearing. No significant otorrhea. No prior ear surgery. He reports that he requires an ear cleaning every 6 months or so. Past Medical History He has a past medical history of Contusion of unspecified front wall of thorax, initial encounter, Cutaneous abscess, unspecified, Other pulmonary collapse, Personal history of (healed) traumatic fracture, Personal history of other diseases of the digestive system, Personal history of other diseases of the respiratory system, Personal history of other diseases of the respiratory system, and Personal history of pneumonia (recurrent). Surgical History He has a past surgical history that includes Lung surgery (01/01/2016) and Mouth surgery (01/01/2016). Social History He reports that he has been smoking cigarettes. He has a 6.3 pack-year smoking history. He has never used smokeless tobacco. He reports current alcohol use of about 15.0 standard drinks of alcohol per week. He reports that he does not use drugs. Family History No family history on file. Allergies Aspirin Physical Exam: CONSTITUTIONAL: No acute distress VOICE: No hoarseness or other abnormality RESPIRATION: Breathing comfortably, no stridor EYES: EOM intact, sclera normal NEURO: Alert and oriented times 3 HEAD AND FACE: Symmetric facial features EARS: Normal external ears, see otomicroscopy NOSE: External nose midline ORAL CAVITY/OROPHARYNX/LIPS: Normal mucous membranes, normal floor of mouth/tongue/OP, no masses or lesions PHARYNGEAL KRAUSE: No masses or lesions NECK/LYMPH: No LAD, no thyroid masses, trachea midline SKIN: Neck skin is without scar or injury PSYCH: Alert and oriented with appropriate mood and affect Procedure: Otomicroscopy with removal of deeply impacted cerumen Right: Deeply impacted and occluding cerumen, otorrhea, and debris removed with suction. Once removed, EAC is mildly edematous and inflamed. TM intact without effusion or retraction, middle ear space clear Left: Deeply impacted and occluding cerumen removed with curette and suction. Once removed, EAC patent and normal, TM intact without effusion or retraction, middle ear space clear Patient reported significant improvement in hearing follow bilateral debridement. Last Recorded Vitals Blood pressure 129/82, height 1.803 m (5' 11), weight 68 kg (150 lb). Relevant Results No results found. Assessment and Plan 59 y.o. male with recent ED visit for right ear pain and concern for perforated TM. On exam, he has occluding debris present in the right EAC which was debrided today and a mild residual OE. Will treat with an additional 7 days of ofloxacin drops to the right ear. Dry ear precautions reviewed with patient. Cerumen impaction was debrided from the left ear. Use debrox prn. RTC 4 months or sooner if issues arise. Problem List Items Addressed This Visit None Visit Diagnoses Impacted cerumen of left ear - Primary Infective otitis externa of right ear Relevant Medications ofloxacin (Floxin) 0.3 % otic solution Annmarie Nixon MD documented in this encounter [facility] Work Phone: 10-28-2024 Hospital Discharge instructions Eliot Echols MD - 10/28/2024 4:18 PM EST You are seen emergency department today for evaluation of an ear infection. We have sent antibiotics to local pharmacy both oral and drops please take them as indicated. If you develop any worsening ear pain please return back to the emergency department soon as possible. We have provided you with an ENT referral on your behalf we have also given you information for an ENT doc would like to call them. Please follow-up with your primary care provider within the week. The following attachments cannot be sent through Care Everywhere.Ear Infections in Adults Discharge Instructions (South Korean)documented in this encounter [facility] Work Phone: 06-09-2024 History of Present illness Narrative Subjective Patient ID: Salvador Denis is a 59 y.o. male who presents for Follow-up. Assessment/Plan Problem List Items Addressed This Visit None Meds refilled follow-up in 6 months Patient agrees Advised to cut down on smoking and alcohol Up-to-date with Cologuard- due Received Pneumovax Lab work today patient is fasting Continue current medication Discussed in detail about cutting down on alcohol and smoking On and off smoking but it is rare now Follow-up in 6 was come back early with any new sign and symptoms. Patient understands and agreement plan. HPI 59-year-old male follow-up on chronic medical conditions Still smoking and drinking advised to cut down Chronic alcoholism currently patient is significant cut down on drinking Elevated LFT Hyponatremia - secondary to beer potomania Former smoker History of right tension pneumothorax status post VATS Anemia No lab work today On and off minimal wheezing probably underlying COPD with chronic smoking Trelegy sample provided Flu vaccine today Declined for now -patient is homeless will consider FIT test patient did not do Allergies Allergen Reactions Aspirin Anaphylaxis itching, hives Current Outpatient Medications Medication Sig Dispense Refill albuterol 90 mcg/actuation inhaler Inhale 2 puffs every 6 hours if needed for wheezing. 18 g 1 carvedilol (Coreg) 6.25 mg tablet Take 1 tablet (6.25 mg) by mouth 2 times a day. 180 tablet 2 lisinopriL-hydrochlorothiazide 10-12.5 mg tablet TAKE 1 TABLET BY MOUTH DAILY 90 tablet 0 No current facility-administered medications for this visit. Objective Visit Vitals BP 89/60 (BP Location: Left arm, Patient Position: Sitting) Temp 36.4 C (97.5 F) Ht 1.829 m (6') Wt 64 kg (141 lb) BMI 19.12 kg/m Smoking Status Some Days BSA 1.8 m Physical Exam Constitutional: General: He is not in acute distress. Appearance: Normal appearance. HENT: Head: Normocephalic and atraumatic. Nose: Nose normal. Eyes: Extraocular Movements: Extraocular movements intact. Conjunctiva/sclera: Conjunctivae normal. Cardiovascular: Rate and Rhythm: Normal rate and regular rhythm. Pulmonary: Effort: Pulmonary effort is normal. Breath sounds: Bilateral minimal expiratory wheezing present Skin: General: Skin is warm. Neurological: Mental Status: He is alert and oriented to person, place, and time. Psychiatric: Mood and Affect: Mood normal. Behavior: Behavior normal. Immunization History Administered Date(s) Administered [employer] Purple Cap SARS-CoV-2 12/20/2020, 01/10/2021, 09/11/2021 Review of Systems No visits with results within 4 Month(s) from this visit. Latest known visit with results is: Lab on 12/07/2023 Component Date Value Ref Range Status Prostate Specific Antigen,Screen 12/07/2023 0.19 <=4.00 ng/mL Final Thyroid Stimulating Hormone 12/07/2023 0.57 0.44 - 3.98 mIU/L Final Cholesterol 12/07/2023 145 0 - 199 mg/dL Final HDL-Cholesterol 12/07/2023 52.5 mg/dL Final Cholesterol/HDL Ratio 12/07/2023 2.8 Final LDL Calculated 12/07/2023 68 <=99 mg/dL Final VLDL 12/07/2023 24 0 - 40 mg/dL Final Triglycerides 12/07/2023 121 0 - 149 mg/dL Final Non HDL Cholesterol 12/07/2023 93 0 - 149 mg/dL Final Glucose 12/07/2023 106 (H) 74 - 99 mg/dL Final Sodium 12/07/2023 134 (L) 136 - 145 mmol/L Final Potassium 12/07/2023 4.8 3.5 - 5.3 mmol/L Final Chloride 12/07/2023 93 (L) 98 - 107 mmol/L Final Bicarbonate 12/07/2023 29 21 - 32 mmol/L Final Anion Gap 12/07/2023 17 10 - 20 mmol/L Final Urea Nitrogen 12/07/2023 17 6 - 23 mg/dL Final Creatinine 12/07/2023 0.89 0.50 - 1.30 mg/dL Final eGFR 12/07/2023 >90 >60 mL/min/1.73m*2 Final Calcium 12/07/2023 9.7 8.6 - 10.6 mg/dL Final Albumin 12/07/2023 4.8 3.4 - 5.0 g/dL Final Alkaline Phosphatase 12/07/2023 80 33 - 120 U/L Final Total Protein 12/07/2023 7.9 6.4 - 8.2 g/dL Final AST 12/07/2023 16 9 - 39 U/L Final Bilirubin, Total 12/07/2023 0.9 0.0 - 1.2 mg/dL Final ALT 12/07/2023 12 10 - 52 U/L Final WBC 12/07/2023 10.7 4.4 - 11.3 x10*3/uL Final nRBC 12/07/2023 0.0 0.0 - 0.0 /100 WBCs Final RBC 12/07/2023 4.22 (L) 4.50 - 5.90 x10*6/uL Final Hemoglobin 12/07/2023 13.6 13.5 - 17.5 g/dL Final Hematocrit 12/07/2023 39.0 (L) 41.0 - 52.0 % Final MCV 12/07/2023 92 80 - 100 fL Final MCH 12/07/2023 32.2 26.0 - 34.0 pg Final MCHC 12/07/2023 34.9 32.0 - 36.0 g/dL Final RDW 12/07/2023 12.8 11.5 - 14.5 % Final Platelets 12/07/2023 444 150 - 450 x10*3/uL Final Radiology: Reviewed imaging in powerchart. No results found. No family history on file. Social History Socioeconomic History Marital status: Tobacco Use Smoking status: Some Days Current packs/day: 0.25 Average packs/day: 0.3 packs/day for 25.0 years (6.3 ttl pk-yrs) Types: Cigarettes Smokeless tobacco: Never Substance and Sexual Activity Alcohol use: Yes Alcohol/week: 15.0 standard drinks of alcohol Types: 15 Cans of beer per week Drug use: Never Social Determinants of Health Financial Resource Strain: High Risk (10/28/2023) Received from [facility] Overall Financial Resource Strain (CARDIA) Difficulty of Paying Living Expenses: Very hard Food Insecurity: Food Insecurity Present (10/28/2023) Received from [facility] Hunger Vital Sign Worried About Running Out of Food in the Last Year: Often true Ran Out of Food in the Last Year: Often true Transportation Needs: Unmet Transportation Needs (10/28/2023) Received from [facility] PRAPARE - Transportation Lack of Transportation (Medical): Yes Lack of Transportation (Non-Medical): Yes Physical Activity: Insufficiently Active (10/28/2023) Received from [facility] Exercise Vital Sign Days of Exercise per Week: 3 days Minutes of Exercise per Session: 30 min Stress: No Stress Concern Present (10/28/2023) Received from [facility] [place] [facility] Occupational [facility] - Occupational Stress Questionnaire Feeling of Stress : Not at all Social Connections: Moderately Integrated (10/28/2023) Received from [facility] Social Connection and Isolation Panel [NHANES] Frequency of Communication with Friends and Family: More than three times a week Frequency of Social Gatherings with Friends and Family: More than three times a week Attends Jew Services: More than 4 times per year Active Member of Clubs or Organizations: Yes Attends Club or Organization Meetings: Never Marital Status: Housing Stability: High Risk (10/28/2023) [facility] Housing Stability Vital Sign Unable to Pay for Housing in the Last Year: Yes Unstable Housing in the Last Year: Yes Past Medical History: Diagnosis Date Contusion of [...] include unintended errors. documented in this encounter [facility] Work Phone: 12-22-2023 Note HNO ID: [id number] Author: WHITNEY HOWARD MD Service: ? Author Type: Physician Type: Progress Notes Filed: 12/22/2023 16:39 Note Text: Mr. Alicea is A 58-year-old RHD man who is seen in follow-up. On October 09 he sustained a right proximal humerus fracture which was fairly comminuted. He missed several appointments with me thereafter and I actually met him in early October. At that time a nonoperative plan was established. He has missed a few appointments since then and returns today noting that the aching pain, stiffness, and swelling in his shoulder have continued to improve. He states that it is still stiff he is not using a sling but he was concerned about doing heavy lifting and other work with it. 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 He also reports that at the time of this shoulder injury he fell and landed hard on his left hand. Since that time his left ring finger has been very swollen and stiff. 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 It is mildly aching. He states that he has had some broken fingers in the past all of which have improved and out left him with notable deficits. He would like to have his finger evaluated today as well. PMH, meds, All, FH ,SH, ROS all reviewed and no changes noted PE: WD,WN WM NAD, A/Ox3 R shoulder: mild stiffness, NTTP, decreased tone cw disuse D CMS I FF: active 60, passive 100 Abd: active 60, passive 100 ER 30 L hand: mod chronic STS, PIP, d CMS I IP flexion contracture, max flexion to 60 AP/lat/obl L hand: malunion middle phalanx AP/Neer/Sc Y R shoulder comp w/ Oct 6: no change in alignment, fxs healing A/P: 2.5 mo s/p R pr hum fx. Healing PT referral: A/P ROM, progress to strengthening. 10-15 lb lifting restriction for 3-4wk then advance WBAT Tylenol prn Vit D, Ca, MVI 2.5mo s/p L ring finger injury now with malunion. Referral to hand surgery. PT/OT RTC 2mo, check R shoulder XR [facility] 12-22-2023 Note HNO ID: [id number] Author: RUBI VIRAMONTES RT(R) Service: Radiology Author Type: Technologist Type: Progress Notes Filed: 12/22/2023 15:04 Note Text: Radiology Service Progress Note PATIENT NAME: Sabi Denis DATE OF SERVICE: December 22, 2023 TIME: 3:01 PM PATIENT IDENTITY VERIFICATION COMPLETED USING TWO (2) IDENTIFIERS: Name and Date of confirmed by patient verbally and Name and Date of confirmed by identification band. FALL SCREENING: Has the patient had 2 falls in the last year or 1 fall with injury or currently using an Ambulatory Assistive Device (Walker, Cane, Wheelchair, Crutches, etc.)? No PATIENT GENDER DATA: Male PATIENT RELEVANT IMPLANT DATA REVIEWED: Not Applicable PATIENT PRESENTS WITH AN IMPLANTABLE OR ATTACHED TECHNOLOGY SERVICES MANAGER: No RADIOLOGY DEPARTMENT: General X-ray: Exam(s) Completed: Upper Extremity X-Ray(s): Hand, left PERIPHERAL IV DATA: Not applicable SIGNED BY: RT Benjamin(R) December 22, 2023 3:01 PM [facility] 12-22-2023 Note HNO ID: [id number] Author: CR TALBOT RT(R) Service: Radiology Author Type: Technologist Type: Progress Notes Filed: 12/22/2023 14:07 Note Text: Radiology Service Progress Note PATIENT NAME: Sabi Denis DATE OF SERVICE: December 22, 2023 TIME: 2:07 PM PATIENT IDENTITY VERIFICATION COMPLETED USING TWO (2) IDENTIFIERS: Name and Date of confirmed by patient verbally and Name and Date of confirmed by identification band. FALL SCREENING: Has the patient had 2 falls in the last year or 1 fall with injury or currently using an Ambulatory Assistive Device (Walker, Cane, Wheelchair, Crutches, etc.)? No PATIENT GENDER DATA: Male PATIENT RELEVANT IMPLANT DATA REVIEWED: Not Applicable PATIENT PRESENTS WITH AN IMPLANTABLE OR ATTACHED TECHNOLOGY SERVICES MANAGER: No RADIOLOGY DEPARTMENT: General X-ray: Exam(s) Completed: Upper Extremity X-Ray(s): Shoulder, AP / TRUE AP / AXILLARY right PERIPHERAL IV DATA: Not applicable SIGNED BY: RT Ruby(R) December 22, 2023 2:07 PM [facility] 12-07-2023 History of Present illness Narrative Subjective Patient ID: Salvador Denis is a 58 y.o. male who presents for Follow-up (Refills ). Assessment/Plan Problem List Items Addressed This Visit None Visit Diagnoses Visit for preventive health examination - Primary Relevant Medications lisinopriL-hydrochlorothiazide 10-12.5 mg tablet Other Relevant Orders Prostate Specific Antigen, Screen TSH with reflex to Free T4 if abnormal Lipid Panel Comprehensive Metabolic Panel CBC Urinalysis with Reflex Microscopic Fecal Occult Blood Immunoassy Hypertension, unspecified type Relevant Medications carvedilol (Coreg) 6.25 mg tablet lisinopriL-hydrochlorothiazide 10-12.5 mg tablet Other Relevant Orders TSH with reflex to Free T4 if abnormal Lipid Panel Comprehensive Metabolic Panel CBC Urinalysis with Reflex Microscopic Meds refilled follow-up in 6 months Patient agrees Advised to cut down on smoking and alcohol Up-to-date with Cologuard- due Received Pneumovax Lab work today patient is fasting Continue current medication Discussed in detail about cutting down on alcohol and smoking On and off smoking but it is rare now Follow-up in 6 was come back early with any new sign and symptoms. Patient understands and agreement plan. HPI 58-year-old male here for physical No new signs and symptoms except had a mechanical fall slipped on ice and had a right shoulder pain went to the ER had a fracture was seen by orthopedic surgery still complaining on and off pain No head injury Previous lab work reviewed needs lab work today Meds refilled Still smoking and drinking advised to cut down Chronic alcoholism currently patient is significant cut down on drinking Elevated LFT Hyponatremia - secondary to beer potomania Former smoker History of right tension pneumothorax status post VATS Anemia Patient is homeless will consider FIT test No Known Allergies Current Outpatient Medications Medication Sig Dispense Refill albuterol 90 mcg/actuation inhaler Inhale 2 puffs every 6 hours if needed for wheezing. 18 g 1 carvedilol (Coreg) 6.25 mg tablet Take 1 tablet (6.25 mg) by mouth 2 times a day. 180 tablet 2 lisinopriL-hydrochlorothiazide 10-12.5 mg tablet Take 1 tablet by mouth once daily. 90 tablet 3 No current facility-administered medications for this visit. Objective Visit Vitals BP 140/87 (BP Location: Left arm, Patient Position: Sitting, BP Cuff Size: Adult) Pulse 104 Ht 1.829 m (6') Wt 71.1 kg (156 lb 12.8 oz) SpO2 97% BMI 21.27 kg/m Smoking Status Every Day BSA 1.9 m Physical Exam Constitutional General appearance: Alert and in no acute distress. Head and Face Head and face: Normal. Palpation of the face and sinuses: Normal. Eyes Inspection of eyes: Sclera and conjunctiva were normal. Pupil exam: Pupils were equal in size. Extraocular movements were intact. Ears, Nose, Mouth, and Throat Ears: Auricles: Normal. Otoscopic examination: Tympanic membranes: Normal with no congestion and no discharge. Otic Canals: Normal without tenderness, congestion or discharge. Hearing: Normal. Nasal mucosa, septum, and turbinates: Normal without edema or erythema. Lips, teeth, and gums: Normal. Oropharynx: Normal with moist mucus membranes, no congestion. Tonsils: Normal no follicles. Neck Neck Exam: Appearance of the neck was normal. No neck masses observed. Thyroid exam: Not enlarged and no palpable thyroid nodules. Pulmonary Respiratory assessment: No respiratory distress, normal respiratory rhythm and effort. Auscultation of Lungs: Clear bilateral breath sounds. Cardiovascular Auscultation of heart: Apical pulse normal, heart rate and rhythm normal, normal S1 and S2, no murmurs and no pericardial rub. Carotid arteries: Pulses normal with no bruits. Exam for edema: No peripheral edema. Chest Chest: Normal A_P diameter, no pulsation, no intercostal withdrawing. Trachea central. Abdomen Abdominal Exam: No bruits, normal bowel sounds, soft, non-tender, no abdominal mass palpated. Liver and Spleen exam: No hepato-splenomegaly. Examination for hernias: Normal. Lymphatic Palpation of lymph nodes in neck: No cervical lymphadenopathy. Musculoskeletal Examination of gait: Normal. Inspection of digits and nails: No clubbing or cyanosis of the fingernails. Inspection/palpation of joints, bones and muscles: No joint swelling. Normal movement of all extremities. Range of Motion: Normal movement of all extremities. Skin Skin inspection: Normal skin color and pigmentation, normal skin turgor and no visible rash. Neurologic Cranial nerves: Nerves 2-12 were intact, no focal neuro defects. Reflexes: Normal. Sensation: Normal. Coordination: Normal. Psychiatric Judgment and insight: Intact. Orientation: Oriented to person, place, and time. Recent and remote memory: Normal. Mood and affect: Normal. Genitourinary Declined. Immunization History Administered Date(s) Administered Pfizer Purple [...] Appearance, Urine 10/26/2022 CLEAR CLEAR Final Specific [place], Urine 10/26/2022 1.015 1.005 - 1.035 Final [...] file. Social History Socioeconomic History Marital status: Spouse name: None Number of children: None Years of education: None Highest education level: None Occupational History None Tobacco Use Smoking status: Every Day Packs/day: 0.25 Years: 25.00 Additional pack years: 0.00 Total pack years: 6.25 Types: Cigarettes Smokeless tobacco: Never Substance and [...] include unintended errors. documented in this encounter [facility] Work Phone: 10-28-2023 Note HNO ID: [id number] Author: WHITNEY HOWARD MD Service: ? Author Type: Physician Type: Progress Notes Filed: 10/28/2023 14:47 Note Text: Chief Complaint: Patient presents with: Fracture: Right shoulder fracture. Date of injury 10/09/23 HPI: Patient is 58 year old Right hand dominant male here for evaluation of R shoulder injury sustained on 10/09/23. ?He fell on ice landing on R shoulder. Pain was sudden on onset and is: constant improving moderate radiating to hand sharp Worse with: virtually all activity Better with: sitting and medication, taking tylenol. Difficult sleeping, has been sitting up to sleep Supporting Subjective Information Below: There is no height or weight on file to calculate BMI. Past Medical History: PAST MEDICAL HISTORY Diagnosis Date Hypertension Pneumothorax COPD Mult prior fxs, recently R d radius January 2023 Depression EtOH abuse Tobacco abuse Past Surgical History: None Family History: No family history on file. 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 hydroCHLOROthiazide 25 mg tablet Take 1 tablet by mouth once daily. lisinopril (ZESTRIL) 5 mg tablet Take by mouth. albuterol HFA (PROVENTIL HFA, VENTOLIN HFA) 90 mcg/actuation inhaler Inhale 2 Puffs as instructed every 6 hours as needed. albuterol HFA (PROVENTIL HFA, VENTOLIN HFA) 90 mcg/actuation inhaler Inhale 2 Puffs as instructed every 4 hours as needed. lisinopril-hydroCHLOROthiazide (PRINZIDE,ZESTORETIC) 10-12.5 mg per tablet Take 1 tablet by mouth once daily. carvedilol (COREG) 6.25 mg tablet Take by mouth q 12 HR. ibuprofen (MOTRIN) 800 mg tablet Take 1 tablet by mouth every 8 hours as needed (for pain.). HYDROcodone-acetaminophen (NORCO) 5-325 mg per tablet No current facility-administered medications for this visit. Allergies: Aspirin but he takes ibuprofen without adverse effects REVIEW OF SYSTEMS: CONSTITUTIONAL: Denies fever and weight loss. EYES: Denies acute vision changes. ENT: Denies hearing changes or difficulty swallowing. CARDIAC: No history of angina and CHF. RESPIRATORY: Denies dyspnea cough or wheeze. GASTROINTESTINAL: Denies abdominal pain, nausea, vomiting MUSCULOSKELETAL: See HPI SKIN: Denies any recent rash or lesion. NEUROLOGICAL: Denies numbness or focal weakness. PSYCHIATRIC: Denies recent mood change. ENDOCRINE: Denies current diagnosis of diabetes. HEMATOLOGIC: Denies episodes of easy bleeding. REFERRING PHYSICIANS: ?was referred to me for consultation and further care by the following physician. This consultation note will be sent to the following physician by either mail or electronic medical record. ?Katy Musaghazalfelipe [address] [facility] [address] [facility] [id number] Physical Exam: General: No acute distress, alert and oriented x3, Awake and alert, and Nontoxic White Male WD/WN, plesaant HEENT: NCAT, anicteric, PERR, EOMI, nl nose, nl ears Neck: supple, NT smooth ROM, no STS Chest: nl excursion, NT CV: RRR, periph pulses palpable Abd: soft, NT/ND Pelvis: NT, nl alignment, no LLD GAIT: normal Good balance and coordination BUE: smooth NT AROM, nl tone, no instability, L shoulder, Bilat elbow, FA, wrist, hand Mod STS R shoulder-ecchymosis resolving and extending into upper arm and R chest wall No other focal pain in RUE LEFT/RIGHT LE: smooth NT AROM, nl tone, no instability, hip, knee, ankle/ft Right Skin: ?Swelling minimal with wrinkles present Vascular: Palpable radial pulse Neuro: ?Sensation intact axillary, median, ulnar and radial nerve distributions and Fires deltoid with 5/5 EPL. FPL, opponens, instrinsics, wrist extension Musculoskeletal: ?Tenderness to palpation over Shoulder I personally reviewed X-Ray: AP/lat/scap Y/ ax R shoulder: comminuted prox hum shaft fx extending to surgical neck Assessment and Plan: Patient is a 58 year old male w/ R comminuted prox hum fx. Tobacco and EtOH abuse pose risk factors for delayed union and malunion. Pt advised re deleterious effects of heavy EtOH and declined counseling for cessation or for nutrition. Closed fracture of proximal end of right humerus, unspecified fracture morphology, initial encounter (primary encounter diagnosis) Essential hypertension, malignant Tobacco abuse Alcohol misuser (more content not included)... [facility] 10-28-2023 Note HNO ID: [id number] Author: JARED SHAW RT(R) Service: Radiology Author Type: Technologist Type: Progress Notes Filed: 10/28/2023 13:22 Note Text: Radiology Service Progress Note PATIENT NAME: Sabi Denis DATE OF SERVICE: October 28, 2023 TIME: 1:14 PM PATIENT IDENTITY VERIFICATION COMPLETED USING TWO (2) IDENTIFIERS: Name and Date of confirmed by patient verbally. FALL SCREENING: Has the patient had 2 falls in the last year or 1 fall with injury or currently using an Ambulatory Assistive Device (Walker, Cane, Wheelchair, Crutches, etc.)? No PATIENT GENDER DATA: Male PATIENT RELEVANT IMPLANT DATA REVIEWED: Not Applicable PATIENT PRESENTS WITH AN IMPLANTABLE OR ATTACHED TECHNOLOGY SERVICES MANAGER: No RADIOLOGY DEPARTMENT: General X-ray: Exam(s) Completed: Upper Extremity X-Ray(s): Shoulder, AP / TRUE AP / AXILLARY / SUPRA OUTLET right PERIPHERAL IV DATA: Not applicable SIGNED BY: RT Poncho(R) October 28, 2023 1:14 PM [facility] 10-28-2023 History of Present illness Narrative Chief Complaint: Patient presents with: Fracture: Right shoulder fracture. Date of injury 10/09/23 HPI: Patient is 58 year old Right hand dominant male here for evaluation of R shoulder injury sustained on 10/09/23. ?He fell on ice landing on R shoulder. Pain was sudden on onset and is: constant improving moderate radiating to hand sharp Worse with: virtually all activity Better with: sitting and medication, taking tylenol. Difficult sleeping, has been sitting up to sleep Supporting Subjective Information Below: There is no height or weight on file to calculate BMI. Past Medical History: PAST MEDICAL HISTORY Diagnosis Date Hypertension Pneumothorax COPD Mult prior fxs, recently R d radius January 2023 Depression EtOH abuse Tobacco abuse Past Surgical History: None Family History: No family history on file. 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 hydroCHLOROthiazide 25 mg tablet Take 1 tablet by mouth once daily. lisinopril (ZESTRIL) 5 mg tablet Take by mouth. albuterol HFA (PROVENTIL HFA, VENTOLIN HFA) 90 mcg/actuation inhaler Inhale 2 Puffs as instructed every 6 hours as needed. albuterol HFA (PROVENTIL HFA, VENTOLIN HFA) 90 mcg/actuation inhaler Inhale 2 Puffs as instructed every 4 hours as needed. lisinopril-hydroCHLOROthiazide (PRINZIDE,ZESTORETIC) 10-12.5 mg per tablet Take 1 tablet by mouth once daily. carvedilol (COREG) 6.25 mg tablet Take by mouth q 12 HR. ibuprofen (MOTRIN) 800 mg tablet Take 1 tablet by mouth every 8 hours as needed (for pain.). HYDROcodone-acetaminophen (NORCO) 5-325 mg per tablet No current facility-administered medications for this visit. Allergies: Aspirin but he takes ibuprofen without adverse effects REVIEW OF SYSTEMS: CONSTITUTIONAL: Denies fever and weight loss. EYES: Denies acute vision changes. ENT: Denies hearing changes or difficulty swallowing. CARDIAC: No history of angina and CHF. RESPIRATORY: Denies dyspnea cough or wheeze. GASTROINTESTINAL: Denies abdominal pain, nausea, vomiting MUSCULOSKELETAL: See HPI SKIN: Denies any recent rash or lesion. NEUROLOGICAL: Denies numbness or focal weakness. PSYCHIATRIC: Denies recent mood change. ENDOCRINE: Denies current diagnosis of diabetes. HEMATOLOGIC: Denies episodes of easy bleeding. REFERRING PHYSICIANS: ?was referred to me for consultation and further care by the following physician. This consultation note will be sent to the following physician by either mail or electronic medical record. ?Katy Tovar [address] [facility] [id number] Physical Exam: General: No acute distress, alert and oriented x3, Awake and alert, and Nontoxic White Male WD/WN, plesaant HEENT: NCAT, anicteric, PERR, EOMI, nl nose, nl ears Neck: supple, NT smooth ROM, no STS Chest: nl excursion, NT CV: RRR, periph pulses palpable Abd: soft, NT/ND Pelvis: NT, nl alignment, no LLD GAIT: normal Good balance and coordination BUE: smooth NT AROM, nl tone, no instability, L shoulder, Bilat elbow, FA, wrist, hand Mod STS R shoulder-ecchymosis resolving and extending into upper arm and R chest wall No other focal pain in RUE LEFT/RIGHT LE: smooth NT AROM, nl tone, no instability, hip, knee, ankle/ft Right Skin: ?Swelling minimal with wrinkles present Vascular: Palpable radial pulse Neuro: ?Sensation intact axillary, median, ulnar and radial nerve distributions and Fires deltoid with 5/5 EPL. FPL, opponens, instrinsics, wrist extension Musculoskeletal: ?Tenderness to palpation over Shoulder I personally reviewed X-Ray: AP/lat/scap Y/ ax R shoulder: comminuted prox hum shaft fx extending to surgical neck Assessment and Plan: Patient is a 58 year old male w/ R comminuted prox hum fx. Tobacco and EtOH abuse pose risk factors for delayed union and malunion. Pt advised re deleterious effects of heavy EtOH and declined counseling for cessation or for nutrition. Closed fracture of proximal end of right humerus, unspecified fracture morphology, initial encounter (primary encounter diagnosis) Essential hypertension, malignant Tobacco abuse Alcohol misuser in household Alcohol use disorder, moderate, dependence (hcc) Simple chronic bronchitis (hcc) The fracture is not sufficiently displaced to require reduction or fixation. Nonop management is planned. The course of care and anticipated healing and recovery was reviewed. Plan for Nonoperative treatment, R prox humerus Pt was provided educational information including [employer] website and trauma junior. Weightbearing and Physical Therapy: No lifting greater than 1 lb Rest and elevation encouraged. Education and recommendations also provided for: Select all applicable: ice, rest, Tylenol prn, ibuprofen 800 TID prn, other Good nutrition advocated: proteins, low fat, multivitamin with minerals Tobacco cessation recommended: Wellbutrin script given. Counseling offered. Pt declined counseling and script. Time spent 5 minutes Bone health encouraged: Calcium 800-1200mg/day, Vit D 1000-2000U/day recommended. passive range of motion ?as tolerated R shoulder Codmans, R elbow, fa, wrist, hand ROM practiced today Follow up: 2 months with x-rays. Preparing for visit: chart/test review: 7 minutes Obtaining or reviewing history: 6 minutes Performing hx and exam: 10 minutes Providing casting/splinting/bracing and/or wound care: 8 minutes Ordering tests and services: 4 minutes Interpreting/discussing tests: 5 minutes PTSD Screening and interpretation: 5 minutes Communicating with providers, coordinating care: 4 minutes Counseling and educating patients/family/caregivers: 5 minutes Charting in epic, dictating, closing records: 8 minutes Whitney Howard MD documented in this encounter [facility] 10-09-2023 Discharge summary Note Date/Time October 09, 2023 6:35pm [facility] Medical Records Department [address] [place] [address] Emergency Department Summary 10/09/23 MR#: [id number] Acct: [id number] Name: SABI DENIS Rep #:[id number] : [id number] From: Isrrael Cali MD PCP: Care Physician,No Primary Status :PRE ER Location: ED HPI History of Present Illness Chief Complaint: Upper Extremity Injury Informant: patient and EMS Narrative Narrative: 58-year-old male states he went to the store to buy some dinner he slipped on ice and fell to his right shoulder which he injured. He called EMS to be brought to the hospital. He denies any other injury. He is right-hand dominant. He denies any numbness or tingling. [facility] Medical History (Updated 10/09/23 @ 18:[address] Isrrael Cali MD) History of pneumothorax HTN (hypertension) Home Medications carvedilol 3.125 mg tablet 3.125 mg PO BID 02/01/23 [History Last Taken Unknown] lisinopril 5 mg tablet 5 mg PO DAILY 02/01/23 [History Last Taken Unknown] hydrocodone-acetaminophen 5-325mg 5mg-325mg 1 tab PO Q6H PRN PRN Pain 3 days #12TABLETS 10/09/23 [Rx Last Taken Unknown] Allergy/AdvReac Type Severity Reaction Status Date / Time No Known Allergies Allergy Verified 10/09/23 18:26 Social History Smoking Status: Current every day smoker tobacco type: cigarettes alcohol intake: current alcohol intake frequency: a few times a month ROS ROS ED Constitutional Constitutional ED: Denies chills or fever(s) Musculoskeletal Musculoskeletal: Reports extremity pain; Denies neck pain Integumentary Denies Abrasions, rash or wounds Neurologic Neurologic: Denies paresthesias or weakness EXAM Physical Exam Const Vital Signs: 10/09/23 18:27 Temperature 97.6 F L Temperature Source Temporal Pulse Rate 78 Respiratory Rate 18 Blood Pressure 139/89 H Blood Pressure Mean 105 Pulse Ox 100 Oxygen Delivery Method Room Air Positive well nourished and well developed General Appearance ED: well developed and NAD Neck full ROM and supple Back/Spine normal ROM and normal to inspection Extremity Extremity Narrative: Limited range of motion right shoulder. There may be some swelling anteriorly where he has tenderness, at the bicipital groove/proximal humerus anteriorly, but there are no other areas of tenderness including the clavicle, acromioclavicular joint, acromion, and there are no deformities. 2+/4 radial pulse. No distal humeral or elbow/forearm/wrist tenderness. Other 3 extremities move without difficulty. Neuro oriented x3, no focal motor deficits and no sensory deficits noted Sensorium / Orientation: alert Psych mental status grossly normal and thought process normal Psych Narrative: Smells of alcohol. Skin no wounds Rashes: no rashes MDM MDM MDM Narrative Medical decision making narrative: 2 view x-ray series of the right shoulder my interpretation shows a comminuted proximal humerus fracture involving the metaphysis and the proximal shaft, scapular Y shows that the humeral head appears to be in place against the glenoid and there is no dislocation. Patient is neurovascular intact distally. Discussed with Dr. Mendiola who agrees with place him in a sling and swath with pain medication for now and will see as outpatient. Patient referred accordingly. Discharge Plan Triage Chief Complaint: Upper Extremity Injury ED Provider: Isrrael Cali Dx/Rx/DC Orders Clinical Impression: Closed fracture of proximal end of right humerus Instructions: Understanding a Humerus Fracture, ED Fracture, Shoulder, ED Slingand Swathe Prescriptions: New hydrocodone-acetaminophen [hydrocodone-acetaminophen] 5-325 mg tablet 1 tab PO Q6H PRN PRN (Reason: Pain) 3 Days Qty: 12 0RF No Action carvedilol 3.125 mg Tablet 3.125 mg PO BID Rx Instructions: must administer with a meal/food lisinopril 5 mg Tablet 5 mg PO DAILY Primary Care Provider: Care Physician,No Primary Referrals: Sony Mendiola MD [Med Staff - Active Staff] - As soon as possible Care Physician,No Primary [Primary Care Provider] - Disposition Disposition: Home, Self Care What to do if you have Problems For any increased pain, shortness of breath, bleeding, nausea or vomiting, chestpain, or any unexpected problems, contact your Primary Care Provider. Call [facility] ([phone]) or report to the closest Emergency Room. Call 911 if necessary. 10/09/231856 <Electronically signed by Isrrael Cali MD> Cosigner Signature (if applicable): CC: Dr. Sony Mendiola MD; No Primary Care Physician ~ Signed [facility] Work Phone: 1(772) 250-776612-22-2023 History of Present illness Narrative* Jak Lam MD - 09/17/2023 3:00 PM EST Subjective Patient ID: Sabi Denis is a 58 y.o. male who [...] may include unintended errors. documented in this [facility] Work Phone: 1(865) 163-293908-01-2023 History of Present illness Narrative* Marii Bales MD - 04/27/2023 10:00 AM EDT Subjective Patient ID: Sabi Denis is a 57 y.o. male who [...] Appearance, Urine 10/26/2022 CLEAR CLEAR Final Specific [place], Urine 10/26/2022 1.015 1.005 - 1.035 Final [...] may include unintended errors. [facility] noteNo assessment information available [facility] Work Phone: Evaluation note* Diagnosis Hypertension, unspecified type documented in this encounter [facility] Work Phone: Evaluation note* Diagnosis Essential hypertension- Primary Unspecified essential hypertension Alcoholism (CMS/HCC) Other and unspecified alcohol dependence, unspecified drinking behavior Impacted cerumen, unspecified laterality Hyponatremia Hyposmolality and/or hyponatremia documented in this encounter [facility] Work Phone: Evaluation note* Diagnosis Closed fracture of proximal end of right humerus, unspecified fracture morphology, initial encounter- Primary Essential hypertension, malignant Tobacco abuse Tobacco use disorder Alcohol misuser in household Alcohol use disorder, moderate, dependence (HCC) Simple chronic bronchitis (HCC) Simple chronic bronchitis [facility] Visit for preventive health examination- Primary Hypertension, unspecified type documented in this encounter [facility] Work Phone: Evaluation note* Diagnosis Centrilobular emphysema (Multi)- Primary Hypertension, unspecified type documented in this encounter [facility] Work Phone: Evaluation note* Diagnosis Recurrent acute suppurative otitis media of right ear with spontaneous rupture of tympanic membrane- Primary Suppurative otitis media of right ear, unspecified chronicity documented in this encounter [facility] Work Phone: Evaluation note* Diagnosis Impacted cerumen of left ear- Primary Impacted cerumen Infective otitis externa of right ear documented in this encounter [facility] Work Phone: Evaluation note* Diagnosis Visit for preventive health examination- Primary Hypertension, unspecified type documented in this encounter [facility] Work Phone: History of Present illness Narrative* 57-year-old male follow-up on * Chronic alcoholism currently patient is significant cut down on drinking * Elevated LFT * Hyponatremia - secondary to beer potomania * Former smoker * History of right tension pneumothorax status post VATS * Anemia * No new signs and symptoms needs refill * Did not do lab work on previous physical * Denied any chest pain shortness of breath * Up-to-date with Cologuard * Complaining of recent cough congestion improving * Still smoking [facility] Work Phone: Hospital Discharge instructions Additional Instructions Impacted right distal radius fracture intra-articular, left ring finger fracture. Maintain splints. Follow-up with orthopedics.[facility] Work Phone: Summary Purpose Family History No [...] Status:Active Advance Directives No Advanced Directives Records Found Advance Directive Response Recorded Date/ Time Living Will No February 01, 2023 2: 50am Power of Ground Support Equipment Fitter No February 01, 2023 2:50am Advance Directive Response Recorded Date/ Time Living Will No October 09 6:30pm Power of Ground Support Equipment Fitter No October 09, 2023 6:30pm Chief Complaint Chronic alcoholism hypertension Chief Complaint and Reason for Visit Chief Complaint UPPER EXTREMITY Chief Complaint RIGHT SHOULDER Additional Source Comments (unrecognized sect ion and content) No Status Records FoundNo Status Records FoundNo Status Records FoundNo Status Records FoundNo Status Records FoundNo Status Records FoundNo Status Records FoundNo Status Records FoundNo Status Records FoundNo Status Records FoundNo Status Records FoundNo Status Records Found INFORMATION SOURCE (unrecogn ized section and content) DATE CREATED AUTHOR 03/22/2018 [facility] DATE CREATED AUTHOR AUTHOR'S ORGANIZ ATION 02/23/[facility] DATE CREATED AUTHOR AUTHOR'S ORGANIZ ATION 11/11/2021 [facility] DATE CREATED AUTHOR AUTHOR'S ORGANIZ ATION 10/26/2022 [facility] DATE CREATED AUTHOR AUTHOR'S ORGANIZ ATION 10/28/2022 [facility] DATE CREATED AUTHOR AUTHOR'S ORGANIZ ATION 10/30/2023 [facility] DATE CREATED AUTHOR AUTHOR'S ORGANIZ ATION 12/12/2023 [facility] DATE CREATED AUTHOR AUTHOR'S ORGANIZ ATION 12/27/2023 [facility] DATE CREATED AUTHOR AUTHOR'S ORGANIZ ATION 07/28/2024 [facility] DATE CREATED AUTHOR AUTHOR'S ORGANIZ ATION 11/06/2024 [facility] DATE CREATED AUTHOR AUTHOR'S ORGANIZ ATION 12/11/2024 [facility] DATE CREATED AUTHOR AUTHOR'S ORGANIZ ATION 12/11/2024 [facility] Care Teams (unrecognized sec tion and content) Team Status: Active Member Role Status Dates No Primary Care Physician Primary Care Provider Active Team Status: Inactive Member Role Status Dates No Primary Care Physician Primary Care Provider Active Dr. Romulo Mendez , DO Emergency Provider Active Monologist Relationship Specialty Start Date End Date Marii Bales MD [address] [facility], [address] [address] PCP - General 03/20/19 Marii Bales MD [address] [facility], [address] [address] PCP - [facility] Medicaid PCP 12/26/22 Monologist Relationship Specialty Start Date End Date Marii Bales MD [address] [place] [address] PCP - [facility] Medicaid PCP 12/26/22 Marii Bales MD [address] [place] [address] PCP - General Family Medicine 09/17/23 Team Status: Inactive Member Role Status Dates Dr. Isrrael Cali MD Emergency Provider Active Monologist Relationship Specialty Start Date End Date Katy Tovar MD PCP - General Family Medicine 05/24/12 Monologist Relationship Specialty Start Date End Date Marii Bales MD [address] [place] [address] PCP - [facility] Medicaid PCP 12/26/22 Marii Bales MD [address] [place] [address] PCP - General Family Medicine 09/17/23 Monologist Relationship Specialty Start Date End Date Marii Bales MD [address] [place] [address] PCP - [facility] Medicaid PCP 12/26/22 Marii Bales MD [address] [place] [address] PCP - General Family Medicine 09/17/23 Monologist Relationship Specialty Start Date End Date Marii Bales MD [address] [place] [address] PCP - [facility] Medicaid PCP 12/26/22 Marii Bales MD [address] [place] [address] PCP - General Family Medicine 09/17/23 Monologist Relationship Specialty Start Date End Date Marii Bales MD [address] [place] [address] PCP - [facility] Medicaid PCP 12/26/22 Marii Bales MD [address] [place] [address] PCP - General Family Medicine 09/17/23 Goals (unrecognized section and content) Goals may be documented in a n alternate sectionGoals may be documented in an alternate section Reason for Visit (unrecogniz ed section and content) Reason Comments Annual Exam Reason Comments swollen toe Reason Comments Fracture Right shoulder fract ure. Date of injury 10/09/23 Reason Comments Follow-up Refills Reason Comments Follow-up Reason Comments Earache Pt states he thinks he either has an ear infection or an ear wax buildup. States the pain in his right ear comes and goes. Reason Comments Ear Problem RT ear check. Specialty Diagnoses / Procedures Referred By Alyse nickerson Referred To Contact Otolaryngology Diagnoses Recurrent acute suppurative otitis media of right ear with spontaneous rupture of tympanic membrane Suppurative otitis media of right [place], [place] [address] [address] Department [place] [address] Phone: tel: fax: Referral ID Status Reason Start Date Expiration Date Visits Requested Visits Authorized [id number] Authorized Specialty Services Required 10/28/2024 10/28/2025 1 1 Reason Comments Follow-up Declined physical Source Comments (unrecognize d section and content) In the event this informatio n is protected by the Federal Confidentiality of Alcohol and Drug Abuse Patient Records regulations: The Federal rules restrict any use of the information to criminally investigate or prosecute any alcohol or drug abuse patient.[facility] FOR RECORDS PERTAINING TO PATIENTS WHO ARE [...] BE BASED ON THE PRIMARY CLINICAL RECORDS. [facility]. provides no warranty or guarantee of the accuracy or completeness of information in this document.
[2025-05-21] MEDS: Albuterol Sulfate 8 gm Inhaler (60 puffs) 2 PUFF INHALATION (05:08)
== END 2025-05-21 05:15 | disposition home or self-care (01) ==
PROVIDERS: Emergency Provider Emergency Medicine; Visit Provider Emergency Medicine
DX: J44.1 Chronic obstructive pulmonary disease with (acute) exacerbation (principal); I10 Essential (primary) hypertension; F17.210 Nicotine dependence, cigarettes, uncomplicated
CPT/HCPCS: 94640; 71046; 87631; 99285